=== PATIENT | female | born 1945 | race Caucasian/White ===

== ENCOUNTER 2017-05-01 13:39 | Emergency (ER) | payer MEDICARE, BC ==
[2017-05-01] MEDS: morphine 4 MG/ML VIAL IV (16:10)
[2017-05-01] MEDS: ONDANSETRON 4 MG INJ IV (16:10)
[2017-05-01 16:23] LABS: ADD MAN DIFF? NO
[2017-05-01 16:25] LABS: BASOPHIL # 0.1 10^3/ul (0.0-0.1); BASOPHILS % 1.1 % (0.0-2.0); EOSINOPHILS % 0.9 % (0.0-7.0); HEMATOCRIT 33.8 % (37.0-47.0); HEMOGLOBIN 11.3 g/dl (12.0-16.0); LYMPHOCYTES # 0.6 10^3/ul (0.8-2.9); MEAN CORPUSCULAR HGB CONC 33.4 g/dl (32.0-37.0); MEAN CORPUSCULAR VOLUME 89.7 fl (82.0-101.0); MONOCYTE # 0.6 10^3/ul (0.3-0.9); MONOCYTES % 12.2 % (0.0-11.0); NEUTROPHIL # 3.3 10^3/ul (1.6-7.5); NEUTROPHILS % 71.6 % (39.0-77.0); PLATELET COUNT 413 10^3/UL (140-415); RED BLOOD COUNT 3.77 10^6/ul (4.20-5.40); RED CELL DISTRIBUTION WIDTH 19.5 % (11.5-14.5)
[2017-05-01 16:25] LABS: WHITE BLOOD COUNT 4.6 10^3/ul (4.8-10.8)
[2017-05-01 16:45] LABS: INR 0.86; PARTIAL THROMBOPLASTIN TIME 27.7 Sec (25.0-35.0); PROTIME 11.8 Sec (11.9-14.9); PT RATIO 0.9
[2017-05-01 16:48] LABS: ALANINE AMINOTRANSFERASE 20 IU/L (13-69); ALBUMIN 4.6 g/dl (3.3-4.9); ALBUMIN/GLOBULIN RATIO 1.39; ALKALINE PHOSPHATASE 106 IU/L (42-121); ANION GAP 22 (8-16); ASPARTATE AMINO TRANSFERASE 22 IU/L (15-46); BILIRUBIN,INDIRECT 0.1 mg/dl (0-1.1); BILIRUBIN,TOTAL 0.1 mg/dl (0.2-1.3); BLOOD UREA NITROGEN 26 mg/dl (7-20); CALCIUM 9.2 mg/dl (8.4-10.2); CARBON DIOXIDE 31 mmol/L (21-31); CHLORIDE 94 mmol/L (97-110); CREATININE 5.08 mg/dl (0.44-1.00); GLUCOSE 119 mg/dl (70-220); LIPASE 44 U/L (23-300); SODIUM 142 mmol/L (135-144); TOTAL PROTEIN 7.9 g/dl (6.1-8.1)
[2017-05-01 16:59] LABS: TROPONIN-I 0.025 ng/ml (0.00-0.12)
[2017-05-01] MEDS: SOD CHLORIDE 0.9% 500 ML IV (19:45)
[2017-05-01] MEDS: FENTAnyl 50 MCG/ML VIAL IV (19:46)
[2017-05-01] MEDS: METOCLOPRAMIDE 10 MG INJ IV (19:46)
[2017-05-01] MEDS: DIPHENHYDRAMINE 50 MG INJ IV (19:46)
== END 2017-05-01 20:57 | disposition home or self-care (01) ==
LOC: FTE 13:39 → E/R 20:57
DX: N18.6 End stage renal disease (principal); K59.00 Constipation, unspecified; I12.0 Hypertensive chronic kidney disease with stage 5 chronic kidney disease or end stage renal disease; I50.9 Heart failure, unspecified; Z79.4 Long term (current) use of insulin; Z79.82 Long term (current) use of aspirin; Z99.2 Dependence on renal dialysis
CPT/HCPCS: 36415; 74176; 80053; 83690; 84484; 85025; 85610; 85730; 93005; 96374; 96375; 99285-25

== ENCOUNTER 2017-05-03 21:23 | Emergency (ER) | payer SELFPAY, BC, MEDICARE | END 2017-05-04 01:00 | disposition left against medical advice (07) | LOC: E/R 21:23 | DX: Z53.21 Procedure and treatment not carried out due to patient leaving prior to being seen by health care provider (principal) ==

== ENCOUNTER 2017-05-05 19:54 | Inpatient (IN) | payer MEDICARE, BC ==
[2017-05-05] MEDS: ONDANSETRON 4 MG INJ IV ×3 (20:18→22:33)
[2017-05-05 20:26] LABS: ADD MAN DIFF? NO
[2017-05-05] MEDS: ASPIRIN 81 MG TAB PO (20:28)
[2017-05-05 20:31] LABS: ABNORMAL IP MESSAGE 1; BASOPHILS % 0.8 % (0.0-2.0); EOSINOPHILS # 0.1 10^3/ul (0.0-0.5); EOSINOPHILS % 1.5 % (0.0-7.0); HEMATOCRIT 26.1 % (37.0-47.0); HEMOGLOBIN 8.9 g/dl (12.0-16.0); LYMPHOCYTES # 0.6 10^3/ul (0.8-2.9); LYMPHOCYTES % 14.1 % (15.0-51.0); MEAN CORPUSCULAR HGB CONC 34.1 g/dl (32.0-37.0); MEAN CORPUSCULAR VOLUME 90.9 fl (82.0-101.0); MEAN PLATELET VOLUME 9.2 fl (7.4-10.4); MONOCYTE # 0.4 10^3/ul (0.3-0.9); MONOCYTES % 9.5 % (0.0-11.0); NEUTROPHIL # 2.9 10^3/ul (1.6-7.5); NEUTROPHILS % 73.8 % (39.0-77.0); PLATELET COUNT 316 10^3/UL (140-415); RED BLOOD COUNT 2.87 10^6/ul (4.20-5.40); RED CELL DISTRIBUTION WIDTH 19.7 % (11.5-14.5)
[2017-05-05 20:31] LABS: WHITE BLOOD COUNT 3.9 10^3/ul (4.8-10.8)
[2017-05-05 20:33] LABS: POSITIVE DIFF @See below
[2017-05-05] MEDS: HYDROmorphONE 1 MG/ML SYG IV (20:43)
[2017-05-05 20:49] LABS: ALANINE AMINOTRANSFERASE 13 IU/L (13-69); ALBUMIN 4.8 g/dl (3.3-4.9); ALKALINE PHOSPHATASE 114 IU/L (42-121); ANION GAP 22 (8-16); ASPARTATE AMINO TRANSFERASE 49 IU/L (15-46); BILIRUBIN,INDIRECT 0.4 mg/dl (0-1.1); BILIRUBIN,TOTAL 0.4 mg/dl (0.2-1.3); BLOOD UREA NITROGEN 14 mg/dl (7-20); CALCIUM 8.2 mg/dl (8.4-10.2); CARBON DIOXIDE 24 mmol/L (21-31); CHLORIDE 93 mmol/L (97-110); CREATININE 3.31 mg/dl (0.44-1.00); GLUCOSE 100 mg/dl (70-220); SODIUM 135 mmol/L (135-144)
[2017-05-05 20:50] LABS: INR 0.85; PROTIME 11.7 Sec (11.9-14.9); PT RATIO 0.9
[2017-05-05 20:51] LABS: PARTIAL THROMBOPLASTIN TIME 40.2 Sec (25.0-35.0)
[2017-05-05 21:00] LABS: TROPONIN-I 0.024 ng/ml (0.00-0.12)
[2017-05-05 21:13] LABS: B-TYPE NATRIURETIC PEPTIDE 75700 PG/ML (0-125)
[2017-05-05] MEDS ORDERED: ACETAMINOPHEN 325 MG TAB PO ×2 (21:30→23:30)
[2017-05-05] MEDS ORDERED: ONDANSETRON 4 MG INJ IV (21:30)
[2017-05-05] MEDS ORDERED: NITROGLYCERIN (SL) 0.4 MG TAB SL (21:30)
[2017-05-05] MEDS: IPRATROPIUM (NEB) 0.5 MG/2.5 ML AMP NEB (21:43)
[2017-05-05] MEDS: ALBUTEROL 0.083% (NEB) 2.5 MG/3 ML AMP NEB (21:43)
[2017-05-05] MEDS ORDERED: GLUCOSE GEL 15 GRAM TUBE PO ×2 (23:30)
[2017-05-05] MEDS ORDERED: GLUCOSE GEL 15 GRAM TUBE BUCCAL (23:30)
[2017-05-05] MEDS ORDERED: BISACODYL (EC) 5 MG TAB PO (23:30)
[2017-05-05] MEDS: ONDANSETRON 4 MG TAB PO (23:30)
[2017-05-05] MEDS ORDERED: NACL 0.9% 3 ML SYG IV (23:30)
[2017-05-05] MEDS ORDERED: traMADol 50 MG TAB PO (23:30)
[2017-05-05] MEDS ORDERED: GLUCAGON 1 MG INJ IM (23:30)
[2017-05-05] MEDS ORDERED: DOCUSATE SODIUM 100 MG CAP PO (23:30)
[2017-05-05] MEDS ORDERED: DEXTROSE 50% 50 ML SYRINGE IV ×2 (23:30)
[2017-05-06 00:27] LABS: CREATINE KINASE 63 IU/L (23-200)
[2017-05-06] MEDS: CLONIDINE 0.1 MG/24 HR PATCH TRANSDERM (00:40)
[2017-05-06 00:41] LABS: CK INDEX 1.6; CK-MB 0.99 ng/ml (0.0-2.4); TROPONIN-I 0.025 ng/ml (0.00-0.12)
[2017-05-06] MEDS: morphine 4 MG/ML VIAL IV (01:32)
[2017-05-06] MEDS: ONDANSETRON 4 MG INJ IV ×3 (01:33→13:58)
[2017-05-06] MEDS: ACCU-CHEK XX (02:32)
[2017-05-06] MEDS: hydrALAzine 20 MG INJ IV ×2 (04:05→23:46)
[2017-05-06 05:05] LABS: CK INDEX 1.3; CK-MB 0.87 ng/ml (0.0-2.4); CREATINE KINASE 66 IU/L (23-200)
[2017-05-06] MEDS: PANTOPRAZOLE 40 MG INJ IV (05:57)
[2017-05-06] MEDS: ONDANSETRON 4 MG TAB PO ×4 (06:23→23:40)
[2017-05-06 06:48] LABS: CREATINE KINASE 58 IU/L (23-200)
[2017-05-06 07:01] LABS: CK INDEX 1.4; CK-MB 0.82 ng/ml (0.0-2.4); TROPONIN-I 0.031 ng/ml (0.00-0.12)
[2017-05-06] MEDS: INSULIN ASPART [NOVOLOG] 3 ML PEN SC ×4 (07:57→21:00)
[2017-05-06] MEDS: SEVELAMER CARBONATE 0.8 GM PKT PO ×3 (08:51→18:47)
[2017-05-06] MEDS: AMLODIPINE 10 MG TAB PO (08:51)
[2017-05-06] MEDS: POLYETHYLENE GLYCOL 17 GM PACKET PO (08:51)
[2017-05-06] MEDS: MULTIVIT/CA CARB/B CMPLX/FA TAB PO (08:52)
[2017-05-06] MEDS ORDERED: HARD FAT/PHENYLEPHRINE SUPP PR (09:00)
[2017-05-06] MEDS: ASPIRIN 81 MG TAB PO (09:05)
[2017-05-06] MEDS: HEPARIN 5,000 UNIT/0.5 ML VIAL SC ×2 (09:07→21:25)
[2017-05-06 09:38] LABS: CK-MB 0.95 ng/ml (0.0-2.4); TROPONIN-I 0.034 ng/ml (0.00-0.12)
[2017-05-06 09:41] LABS: CK INDEX 1.6; CREATINE KINASE 60 IU/L (23-200)
[2017-05-06] MEDS: LORAZEPAM 2 MG INJ IV (15:36)
[2017-05-06] MEDS: METOCLOPRAMIDE 10 MG INJ IV (15:36)
[2017-05-07] MEDS: ACCU-CHEK XX (01:52)
[2017-05-07] MEDS: ONDANSETRON 4 MG TAB PO ×3 (05:14→17:30)
[2017-05-07] MEDS: PANTOPRAZOLE 40 MG INJ IV (05:15)
[2017-05-07] MEDS: SEVELAMER CARBONATE 0.8 GM PKT PO ×3 (07:55→17:55)
[2017-05-07] MEDS: INSULIN ASPART [NOVOLOG] 3 ML PEN SC ×4 (07:55→21:00)
[2017-05-07 08:05] LABS: ADD MAN DIFF? NO; BASOPHIL # 0.1 10^3/ul (0.0-0.1); EOSINOPHILS # 0.2 10^3/ul (0.0-0.5); EOSINOPHILS % 2.9 % (0.0-7.0); HEMATOCRIT 29.2 % (37.0-47.0); HEMOGLOBIN 9.6 g/dl (12.0-16.0); LYMPHOCYTES # 0.7 10^3/ul (0.8-2.9); LYMPHOCYTES % 12.8 % (15.0-51.0); MEAN CORPUSCULAR HEMOGLOBIN 30.4 pg (29.0-33.0); MEAN CORPUSCULAR HGB CONC 32.9 g/dl (32.0-37.0); MEAN CORPUSCULAR VOLUME 92.4 fl (82.0-101.0); MEAN PLATELET VOLUME 9.6 fl (7.4-10.4); MONOCYTE # 0.7 10^3/ul (0.3-0.9); MONOCYTES % 13.6 % (0.0-11.0); NEUTROPHIL # 3.6 10^3/ul (1.6-7.5); NEUTROPHILS % 69.3 % (39.0-77.0); PLATELET COUNT 347 10^3/UL (140-415); RED BLOOD COUNT 3.16 10^6/ul (4.20-5.40); RED CELL DISTRIBUTION WIDTH 20.3 % (11.5-14.5)
[2017-05-07 08:05] LABS: WHITE BLOOD COUNT 5.2 10^3/ul (4.8-10.8)
[2017-05-07 08:25] LABS: ALANINE AMINOTRANSFERASE 22 IU/L (13-69); ALBUMIN 3.9 g/dl (3.3-4.9); ALKALINE PHOSPHATASE 71 IU/L (42-121); ANION GAP 21 (8-16); ASPARTATE AMINO TRANSFERASE 28 IU/L (15-46); BLOOD UREA NITROGEN 32 mg/dl (7-20); CALCIUM 7.6 mg/dl (8.4-10.2); CARBON DIOXIDE 28 mmol/L (21-31); CHLORIDE 93 mmol/L (97-110); CREATININE 7.31 mg/dl (0.44-1.00); GLUCOSE 121 mg/dl (70-220); POTASSIUM 4.1 mmol/L (3.5-5.1); SODIUM 138 mmol/L (135-144); TOTAL PROTEIN 6.5 g/dl (6.1-8.1)
[2017-05-07] MEDS: MULTIVIT/CA CARB/B CMPLX/FA TAB PO (09:14)
[2017-05-07] MEDS: POLYETHYLENE GLYCOL 17 GM PACKET PO (09:14)
[2017-05-07] MEDS: ASPIRIN 81 MG TAB PO (09:14)
[2017-05-07] MEDS: AMLODIPINE 10 MG TAB PO (09:15)
[2017-05-07] MEDS: HEPARIN 5,000 UNIT/0.5 ML VIAL SC ×2 (09:23→21:58)
[2017-05-07] MEDS: REGADENOSON 0.4 MG/5 ML SYG (12:15)
[2017-05-07] MEDS: ONDANSETRON 4 MG INJ IV ×2 (13:04→16:51)
[2017-05-07] MEDS: hydrALAzine 20 MG INJ IV (17:03)
[2017-05-07 18:37] LABS: LIPASE 55 U/L (23-300)
[2017-05-07 18:37] LABS: AMYLASE 68 U/L (11-123)
[2017-05-07] MEDS: METOCLOPRAMIDE 5 MG TAB PO (19:49)
[2017-05-08] MEDS: ONDANSETRON 4 MG TAB PO ×4 (00:20→18:09)
[2017-05-08] MEDS: hydrALAzine 20 MG INJ IV ×2 (00:24→07:45)
[2017-05-08] MEDS: METOCLOPRAMIDE 10 MG INJ IV ×2 (00:24→09:12)
[2017-05-08] MEDS: ACCU-CHEK XX (01:37)
[2017-05-08] MEDS: METOCLOPRAMIDE 5 MG TAB PO ×4 (05:22→18:08)
[2017-05-08] MEDS: PANTOPRAZOLE 40 MG INJ IV (05:45)
[2017-05-08] MEDS ORDERED: PANTOPRAZOLE 40 MG INJ IV (06:00)
[2017-05-08] MEDS: INSULIN ASPART [NOVOLOG] 3 ML PEN SC ×4 (07:55→22:14)
[2017-05-08] MEDS: SEVELAMER CARBONATE 0.8 GM PKT PO ×3 (07:55→18:09)
[2017-05-08] MEDS: MULTIVIT/CA CARB/B CMPLX/FA TAB PO (09:00)
[2017-05-08] MEDS: ASPIRIN 81 MG TAB PO (09:00)
[2017-05-08] MEDS: POLYETHYLENE GLYCOL 17 GM PACKET PO (09:00)
[2017-05-08] MEDS: ISOSORBIDE MONONITRATE(SR)30 MG TAB PO (09:01)
[2017-05-08] MEDS: AMLODIPINE 10 MG TAB PO (09:02)
[2017-05-08] MEDS: HEPARIN 5,000 UNIT/0.5 ML VIAL SC ×2 (09:06→22:12)
[2017-05-08] MEDS: BISACODYL 10 MG SUPP PR (12:18)
[2017-05-08] MEDS: morphine 2 MG INJ IV (12:40)
[2017-05-08] MEDS: CLONIDINE 0.2 MG/24 HR PATCH TRANSDERM (16:30)
[2017-05-08] MEDS: LUBIPROSTONE 24 MCG CAP PO (22:01)
[2017-05-08] MEDS: LACTULOSE 30ML CUP PO (22:01)
[2017-05-09] MEDS: METOCLOPRAMIDE 5 MG TAB PO ×3 (00:06→12:02)
[2017-05-09] MEDS: ONDANSETRON 4 MG TAB PO ×3 (00:06→12:02)
[2017-05-09] MEDS: hydrALAzine 20 MG INJ IV (00:09)
[2017-05-09] MEDS: morphine 2 MG INJ IV (00:17)
[2017-05-09] MEDS: ACCU-CHEK XX (02:00)
[2017-05-09] MEDS: METOCLOPRAMIDE 10 MG INJ IV (02:40)
[2017-05-09] MEDS: PANTOPRAZOLE 40 MG INJ IV (05:56)
[2017-05-09] MEDS: SEVELAMER CARBONATE 0.8 GM PKT PO ×2 (07:41→12:02)
[2017-05-09] MEDS: INSULIN ASPART [NOVOLOG] 3 ML PEN SC ×2 (07:42→11:50)
[2017-05-09] MEDS: LUBIPROSTONE 24 MCG CAP PO (07:58)
[2017-05-09] MEDS: ISOSORBIDE MONONITRATE(SR)30 MG TAB PO (07:58)
[2017-05-09] MEDS: ASPIRIN 81 MG TAB PO (07:58)
[2017-05-09] MEDS: POLYETHYLENE GLYCOL 17 GM PACKET PO (07:59)
[2017-05-09] MEDS: MULTIVIT/CA CARB/B CMPLX/FA TAB PO (07:59)
[2017-05-09] MEDS: LACTULOSE 30ML CUP PO (07:59)
[2017-05-09] MEDS: AMLODIPINE 10 MG TAB PO (08:00)
[2017-05-09] MEDS: HEPARIN 5,000 UNIT/0.5 ML VIAL SC (08:05)
[2017-05-09 08:32] LABS: ANION GAP 18 (8-16); BLOOD UREA NITROGEN 28 mg/dl (7-20); CARBON DIOXIDE 27 mmol/L (21-31); CHLORIDE 96 mmol/L (97-110); CREATININE 6.95 mg/dl (0.44-1.00); GLUCOSE 84 mg/dl (70-220); POTASSIUM 4.2 mmol/L (3.5-5.1); SODIUM 137 mmol/L (135-144)
[2017-05-09] MEDS: CLONIDINE 0.3 MG/24 HR PATCH TRANSDERM (16:00)
== END 2017-05-09 17:22 | disposition home or self-care (01) | DRG 291 ==
LOC: E/R 19:54 → TEL 21:27
DX: I13.2 Hypertensive heart and chronic kidney disease with heart failure and with stage 5 chronic kidney disease, or end stage renal disease (principal); N18.6 End stage renal disease; E11.22 Type 2 diabetes mellitus with diabetic chronic kidney disease; R07.9 Chest pain, unspecified; I25.10 Atherosclerotic heart disease of native coronary artery without angina pectoris; K31.84 Gastroparesis; I50.9 Heart failure, unspecified; K21.9 Gastro-esophageal reflux disease without esophagitis; I25.9 Chronic ischemic heart disease, unspecified; E11.43 Type 2 diabetes mellitus with diabetic autonomic (poly)neuropathy; D64.9 Anemia, unspecified; E78.5 Hyperlipidemia, unspecified; K59.00 Constipation, unspecified; Z99.2 Dependence on renal dialysis; Z79.4 Long term (current) use of insulin
CPT/HCPCS: 36415; 71045; 74018; 76700; 78452; 80048; 80053; 82150; 82550; 82553; 82962; 83690; 83880; 84484; 85025; 85610; 85730; 90935; 93005; 93017; 94664; 96372; 96374; 96375; 96376; 99217; 99285-25; G0378

== ENCOUNTER 2017-05-30 15:39 | Inpatient (IN) | payer MEDICARE, BC ==
[2017-05-30] MEDS: SOD CHLORIDE 0.9% 1,000 ML IV (17:15)
[2017-05-30] MEDS: ONDANSETRON 4 MG INJ IV ×2 (17:15→20:05)
[2017-05-30 17:19] LABS: ADD MAN DIFF? NO
[2017-05-30 17:20] LABS: BASOPHIL # 0.1 10^3/ul (0.0-0.1); BASOPHILS % 1.4 % (0.0-2.0); EOSINOPHILS % 0.9 % (0.0-7.0); HEMATOCRIT 41.1 % (37.0-47.0); HEMOGLOBIN 13.5 g/dl (12.0-16.0); LYMPHOCYTES # 0.8 10^3/ul (0.8-2.9); LYMPHOCYTES % 17.8 % (15.0-51.0); MEAN CORPUSCULAR HGB CONC 32.8 g/dl (32.0-37.0); MEAN CORPUSCULAR VOLUME 94.5 fl (82.0-101.0); MEAN PLATELET VOLUME 9.1 fl (7.4-10.4); MONOCYTE # 0.5 10^3/ul (0.3-0.9); MONOCYTES % 10.8 % (0.0-11.0); NEUTROPHILS % 68.9 % (39.0-77.0); PLATELET COUNT 370 10^3/UL (140-415); RED BLOOD COUNT 4.35 10^6/ul (4.20-5.40); RED CELL DISTRIBUTION WIDTH 18.4 % (11.5-14.5)
[2017-05-30 17:20] LABS: WHITE BLOOD COUNT 4.4 10^3/ul (4.8-10.8)
[2017-05-30 17:51] LABS: ALANINE AMINOTRANSFERASE 21 IU/L (13-69); ALBUMIN 5.1 g/dl (3.3-4.9); ALBUMIN/GLOBULIN RATIO 1.64; ALKALINE PHOSPHATASE 112 IU/L (42-121); ANION GAP 23 (8-16); ASPARTATE AMINO TRANSFERASE 30 IU/L (15-46); BILIRUBIN,INDIRECT 0.1 mg/dl (0-1.1); BILIRUBIN,TOTAL 0.1 mg/dl (0.2-1.3); BLOOD UREA NITROGEN 23 mg/dl (7-20); CALCIUM 9.7 mg/dl (8.4-10.2); CARBON DIOXIDE 30 mmol/L (21-31); CHLORIDE 91 mmol/L (97-110); CREATININE 5.79 mg/dl (0.44-1.00); GLUCOSE 152 mg/dl (70-220); LIPASE 44 U/L (23-300); POTASSIUM 4.5 mmol/L (3.5-5.1); SODIUM 139 mmol/L (135-144); TOTAL PROTEIN 8.2 g/dl (6.1-8.1)
[2017-05-30 18:02] LABS: TROPONIN-I 0.016 ng/ml (0.00-0.12)
[2017-05-30] MEDS: MAGNESIUM CITRATE 300 ML BTL PO (18:27)
[2017-05-30] MEDS: ACETAMINOPHEN 325 MG TAB PO (20:04)
[2017-05-30] MEDS: hydrALAzine 20 MG INJ IV ×3 (20:49→23:31)
[2017-05-30] MEDS ORDERED: ACETAMINOPHEN 325 MG TAB PO ×2 (21:00→23:30)
[2017-05-30] MEDS ORDERED: ONDANSETRON 4 MG INJ IV (21:00)
[2017-05-30] MEDS ORDERED: MAGNESIUM CITRATE 300 ML BTL PO (23:30)
[2017-05-30] MEDS ORDERED: NACL 0.9% 3 ML SYG IV (23:30)
[2017-05-31] MEDS: traMADol 50 MG TAB PO ×3 (01:29→19:55)
[2017-05-31] MEDS: CLONIDINE 0.2 MG/24 HR PATCH TRANSDERM (02:51)
[2017-05-31] MEDS ORDERED: HEPARIN 1000 UNITS/ML 10 ML INJ (03:58)
[2017-05-31] MEDS: HEPARIN 1000 UNITS/ML 10 ML INJ HE ×2 (05:02→05:03)
[2017-05-31] MEDS: LOSARTAN 50 MG TAB PO (08:43)
[2017-05-31] MEDS: MULTIVIT/CA CARB/B CMPLX/FA TAB PO (08:44)
[2017-05-31] MEDS: AMLODIPINE 10 MG TAB PO (08:44)
[2017-05-31] MEDS: LUBIPROSTONE 24 MCG CAP PO ×4 (08:44→21:09)
[2017-05-31] MEDS: SEVELAMER 800 MG TAB PO ×3 (08:44→17:02)
[2017-05-31] MEDS: PANTOPRAZOLE 40 MG INJ IV (08:44)
[2017-05-31] MEDS: FLUOXETINE 20 MG CAP PO (08:44)
[2017-05-31 15:50] LABS: HEPATITIS B SURFACE ANTIGEN NEGATIVE (NEGATIVE)
[2017-05-31] MEDS: ONDANSETRON 4 MG INJ IV (19:55)
[2017-06-01] MEDS: hydrALAzine 20 MG INJ IV ×2 (05:04→12:08)
[2017-06-01] MEDS: PANTOPRAZOLE 40 MG INJ IV (05:49)
[2017-06-01] MEDS: ONDANSETRON 4 MG INJ IV ×3 (05:49→20:46)
[2017-06-01 07:01] LABS: ADD MAN DIFF? NO
[2017-06-01 07:04] LABS: WHITE BLOOD COUNT 4.9 10^3/ul (4.8-10.8)
[2017-06-01 07:04] LABS: BASOPHIL # 0.1 10^3/ul (0.0-0.1); EOSINOPHILS # 0.1 10^3/ul (0.0-0.5); EOSINOPHILS % 2.6 % (0.0-7.0); HEMATOCRIT 37.9 % (37.0-47.0); HEMOGLOBIN 12.1 g/dl (12.0-16.0); LYMPHOCYTES # 0.8 10^3/ul (0.8-2.9); LYMPHOCYTES % 16.9 % (15.0-51.0); MEAN CORPUSCULAR HEMOGLOBIN 31.2 pg (29.0-33.0); MEAN CORPUSCULAR HGB CONC 31.9 g/dl (32.0-37.0); MEAN CORPUSCULAR VOLUME 97.7 fl (82.0-101.0); MEAN PLATELET VOLUME 9.3 fl (7.4-10.4); MONOCYTE # 0.6 10^3/ul (0.3-0.9); MONOCYTES % 12.4 % (0.0-11.0); NEUTROPHIL # 3.3 10^3/ul (1.6-7.5); NEUTROPHILS % 66.9 % (39.0-77.0); PLATELET COUNT 318 10^3/UL (140-415); RED BLOOD COUNT 3.88 10^6/ul (4.20-5.40); RED CELL DISTRIBUTION WIDTH 17.8 % (11.5-14.5)
[2017-06-01 07:39] LABS: ALANINE AMINOTRANSFERASE 18 IU/L (13-69); ALBUMIN 4.2 g/dl (3.3-4.9); ALBUMIN/GLOBULIN RATIO 1.68; ALKALINE PHOSPHATASE 89 IU/L (42-121); ANION GAP 19 (8-16); ASPARTATE AMINO TRANSFERASE 23 IU/L (15-46); BILIRUBIN,INDIRECT 0.2 mg/dl (0-1.1); BILIRUBIN,TOTAL 0.2 mg/dl (0.2-1.3); BLOOD UREA NITROGEN 20 mg/dl (7-20); CALCIUM 8.6 mg/dl (8.4-10.2); CARBON DIOXIDE 27 mmol/L (21-31); CHLORIDE 95 mmol/L (97-110); GLUCOSE 103 mg/dl (70-220); POTASSIUM 4.5 mmol/L (3.5-5.1); SODIUM 136 mmol/L (135-144); TOTAL PROTEIN 6.7 g/dl (6.1-8.1)
[2017-06-01] MEDS: LOSARTAN 50 MG TAB PO (08:15)
[2017-06-01] MEDS: SEVELAMER 800 MG TAB PO ×3 (08:15→17:04)
[2017-06-01] MEDS: FLUOXETINE 20 MG CAP PO (08:15)
[2017-06-01] MEDS: LUBIPROSTONE 24 MCG CAP PO ×2 (08:16→20:46)
[2017-06-01] MEDS: AMLODIPINE 10 MG TAB PO (08:16)
[2017-06-01] MEDS: MULTIVIT/CA CARB/B CMPLX/FA TAB PO (08:16)
[2017-06-01] MEDS: traMADol 50 MG TAB PO ×2 (12:16→20:46)
[2017-06-01] MEDS: ISOSORBIDE DINITRATE 10 MG TAB PO ×2 (14:40→20:48)
[2017-06-01] MEDS ORDERED: GLUCAGON 1 MG INJ IM (15:00)
[2017-06-01] MEDS ORDERED: GLUCOSE GEL 15 GRAM TUBE PO (15:00)
[2017-06-01] MEDS ORDERED: DEXTROSE 50% 50 ML SYRINGE IV (15:00)
[2017-06-01] MEDS ORDERED: GLUCOSE GEL 15 GRAM TUBE BUCCAL (15:00)
[2017-06-01] MEDS: Discontinue current oral sulfonylureas (glyburide, glipizide, and/or glimepiride) prior to XX (15:00)
[2017-06-01] MEDS: HYPOGLYCEMIA PROTOCOL when Glucose is <70 mg/dL or symptomatic <90 mg/dL. XX (15:00)
[2017-06-01] MEDS: INSULIN ASPART [NOVOLOG] 3 ML PEN SC ×3 (17:00→20:56)
[2017-06-01] MEDS: ONDANSETRON (ODT) 4 MG TAB ODT (17:03)
[2017-06-01] MEDS: HYDROmorphONE 0.5 MG/0.5 ML SYG IV (17:04)
[2017-06-01] MEDS: CLONIDINE 0.3 MG/24 HR PATCH TRANSDERM (18:33)
[2017-06-01] MEDS: DOCUSATE SODIUM 100 MG CAP PO (20:48)
[2017-06-01] MEDS: GLUCOSE GEL 15 GRAM TUBE PO ×2 (21:01→21:18)
[2017-06-01] MEDS: DEXTROSE 50% 50 ML SYRINGE IV (21:29)
[2017-06-01] MEDS: ACCU-CHEK XX (23:54)
[2017-06-02] MEDS: PANTOPRAZOLE 40 MG INJ IV (06:12)
[2017-06-02] MEDS: SEVELAMER 800 MG TAB PO ×3 (08:14→18:27)
[2017-06-02] MEDS: LUBIPROSTONE 24 MCG CAP PO ×2 (08:15→22:05)
[2017-06-02] MEDS: FLUOXETINE 20 MG CAP PO (08:15)
[2017-06-02] MEDS: MULTIVIT/CA CARB/B CMPLX/FA TAB PO (08:15)
[2017-06-02] MEDS: INSULIN ASPART [NOVOLOG] 3 ML PEN SC ×4 (08:15→22:09)
[2017-06-02] MEDS: ISOSORBIDE DINITRATE 10 MG TAB PO ×2 (08:15→22:07)
[2017-06-02] MEDS: LOSARTAN 50 MG TAB PO (09:00)
[2017-06-02] MEDS: AMLODIPINE 10 MG TAB PO (09:00)
[2017-06-02] MEDS ORDERED: NIFEdipine (XL) 30 MG TAB PO (09:00)
[2017-06-02] MEDS: LACTULOSE 30ML CUP PO ×2 (16:00→22:00)
[2017-06-02] MEDS: BISACODYL (EC) 5 MG TAB PO (16:19)
[2017-06-02] MEDS: traMADol 50 MG TAB PO (16:19)
[2017-06-02] MEDS: DOCUSATE SODIUM 100 MG CAP PO (22:05)
[2017-06-02] MEDS: ACCU-CHEK XX (23:49)
[2017-06-03] MEDS: PANTOPRAZOLE 40 MG INJ IV (06:39)
[2017-06-03] MEDS: LACTULOSE 30ML CUP PO ×2 (06:41→14:00)
[2017-06-03] MEDS: INSULIN ASPART [NOVOLOG] 3 ML PEN SC ×3 (08:11→17:58)
[2017-06-03] MEDS: SEVELAMER 800 MG TAB PO ×3 (09:19→17:58)
[2017-06-03] MEDS: LUBIPROSTONE 24 MCG CAP PO (09:19)
[2017-06-03] MEDS: MULTIVIT/CA CARB/B CMPLX/FA TAB PO (09:19)
[2017-06-03] MEDS: LOSARTAN 50 MG TAB PO (09:19)
[2017-06-03] MEDS: FLUOXETINE 20 MG CAP PO (09:20)
[2017-06-03] MEDS: ISOSORBIDE DINITRATE 10 MG TAB PO (09:20)
[2017-06-03] MEDS: AMLODIPINE 10 MG TAB PO (09:20)
[2017-06-03] MEDS: traMADol 50 MG TAB PO (16:48)
== END 2017-06-03 18:30 | disposition home or self-care (01) | DRG 391 ==
LOC: MS2 06-01 11:33 → E/R 15:39 → TEL 20:52
DX: K59.00 Constipation, unspecified (principal); N18.6 End stage renal disease; I12.0 Hypertensive chronic kidney disease with stage 5 chronic kidney disease or end stage renal disease; E11.9 Type 2 diabetes mellitus without complications; Z99.2 Dependence on renal dialysis; I16.0 Hypertensive urgency; F32.9 Major depressive disorder, single episode, unspecified; R10.13 Epigastric pain; R11.2 Nausea with vomiting, unspecified; B34.9 Viral infection, unspecified
CPT/HCPCS: 36415; 71045; 74018; 74176; 80053; 82962; 83036; 83690; 84484; 85025; 87340; 90935; 93005; 96374; 96375; 96376; 99285-25

== ENCOUNTER 2017-06-14 04:21 | Inpatient (IN) | payer MEDICARE, BC ==
[2017-06-14] MEDS: IOHEXOL 14.3 MG(I)/ML (ADULT) BTL PO (03:30)
[2017-06-14] MEDS: ASPIRIN 325 MG TAB PO (06:27)
[2017-06-14] MEDS: LABETALOL HCL 20MG INJ IV (07:35)
[2017-06-14] MEDS: ONDANSETRON 4 MG INJ IV ×3 (07:35→19:46)
[2017-06-14] MEDS: FAMOTIDINE 20 MG INJ IV (07:35)
[2017-06-14 08:00] LABS: ADD MAN DIFF? NO
[2017-06-14 08:06] LABS: ABNORMAL IP MESSAGE 1; BASOPHILS % 0.7 % (0.0-2.0); EOSINOPHILS % 0.3 % (0.0-7.0); HEMATOCRIT 39.2 % (37.0-47.0); HEMOGLOBIN 12.9 g/dl (12.0-16.0); LYMPHOCYTES # 0.5 10^3/ul (0.8-2.9); LYMPHOCYTES % 8.3 % (15.0-51.0); MEAN CORPUSCULAR HEMOGLOBIN 31.9 pg (29.0-33.0); MEAN CORPUSCULAR HGB CONC 32.9 g/dl (32.0-37.0); MEAN CORPUSCULAR VOLUME 96.8 fl (82.0-101.0); MEAN PLATELET VOLUME 9.3 fl (7.4-10.4); MONOCYTE # 0.5 10^3/ul (0.3-0.9); MONOCYTES % 8.3 % (0.0-11.0); NEUTROPHIL # 4.8 10^3/ul (1.6-7.5); NEUTROPHILS % 82.1 % (39.0-77.0); PLATELET COUNT 400 10^3/UL (140-415); RED BLOOD COUNT 4.05 10^6/ul (4.20-5.40); RED CELL DISTRIBUTION WIDTH 15.5 % (11.5-14.5)
[2017-06-14 08:06] LABS: WHITE BLOOD COUNT 5.8 10^3/ul (4.8-10.8)
[2017-06-14 08:07] LABS: POSITIVE DIFF @See below
[2017-06-14 08:28] LABS: ALANINE AMINOTRANSFERASE 24 IU/L (13-69); ALBUMIN 4.8 g/dl (3.3-4.9); ALBUMIN/GLOBULIN RATIO 1.54; ALKALINE PHOSPHATASE 90 IU/L (42-121); ANION GAP 19 (8-16); ASPARTATE AMINO TRANSFERASE 25 IU/L (15-46); BLOOD UREA NITROGEN 11 mg/dl (7-20); CALCIUM 9.5 mg/dl (8.4-10.2); CARBON DIOXIDE 34 mmol/L (21-31); CHLORIDE 93 mmol/L (97-110); CREATINE KINASE 62 IU/L (23-200); CREATININE 3.25 mg/dl (0.44-1.00); GLUCOSE 162 mg/dl (70-220); POTASSIUM 3.2 mmol/L (3.5-5.1); SODIUM 143 mmol/L (135-144); TOTAL PROTEIN 7.9 g/dl (6.1-8.1)
[2017-06-14 08:31] LABS: INR 0.83; PROTIME 11.5 Sec (11.9-14.9); PT RATIO 0.9
[2017-06-14 08:32] LABS: PARTIAL THROMBOPLASTIN TIME 26.4 Sec (25.0-35.0)
[2017-06-14 08:37] LABS: CK INDEX 1.9; CK-MB 1.17 ng/ml (0.0-2.4); TROPONIN-I 0.028 ng/ml (0.00-0.12)
[2017-06-14 08:52] LABS: B-TYPE NATRIURETIC PEPTIDE 73900 PG/ML (0-125)
[2017-06-14] MEDS: METOCLOPRAMIDE 10 MG INJ IV ×2 (08:58→17:25)
[2017-06-14] MEDS: hydrALAzine 20 MG INJ IV ×3 (08:59→16:38)
[2017-06-14] MEDS: LORAZEPAM 2 MG INJ IV (09:26)
[2017-06-14] MEDS ORDERED: METOPROLOL 5 MG INJ IV (14:00)
[2017-06-14] MEDS: morphine 2 MG INJ IV (14:16)
[2017-06-14] MEDS: METOPROLOL 5 MG INJ IV ×2 (14:18→14:24)
[2017-06-14] MEDS ORDERED: DEXTROSE 50% 50 ML SYRINGE IV ×2 (14:30)
[2017-06-14] MEDS ORDERED: GLUCOSE GEL 15 GRAM TUBE BUCCAL (14:30)
[2017-06-14] MEDS ORDERED: MAGNESIUM CITRATE 300 ML BTL PO (14:30)
[2017-06-14] MEDS ORDERED: GLYCERIN (ADULT) SUPP PR (14:30)
[2017-06-14] MEDS ORDERED: NACL 0.9% 3 ML SYG IV (14:30)
[2017-06-14] MEDS ORDERED: GLUCOSE GEL 15 GRAM TUBE PO ×2 (14:30)
[2017-06-14] MEDS ORDERED: GLUCAGON 1 MG INJ IM (14:30)
[2017-06-14] MEDS: CLONIDINE 0.2 MG/24 HR PATCH TRANSDERM (14:54)
[2017-06-14] MEDS: DEXTROSE 5%-0.45% NACL 1,000 ML IV (15:09)
[2017-06-14 15:42] LABS: PLATELET COUNT 373 10^3/UL (140-415)
[2017-06-14] MEDS: POTASSIUM CHLORIDE 100 ML IVPB (16:49)
[2017-06-14] MEDS: ENALAPRILAT 1.25 MG INJ IV (17:14)
[2017-06-14] MEDS: NITROGLYCERIN 0.2 MG/HR PATCH TRANSDERM (17:15)
[2017-06-14] MEDS: PANTOPRAZOLE 40 MG INJ IV (17:53)
[2017-06-14] MEDS: NITROGLYCERIN 50 MG/D5W (PMX) 250 ML IV (18:49)
[2017-06-14] MEDS: HEPARIN 5,000 UNIT/0.5 ML VIAL SC (21:31)
[2017-06-14] MEDS ORDERED: SOD CHLORIDE 0.9% 1,000 ML IV (21:34)
[2017-06-14] MEDS ORDERED: SODIUM CHLORIDE 0.9% 1L BAG IV (22:00)
[2017-06-14] MEDS: INSULIN GLARGINE [LANtus] 3 ML PEN SC (22:58)
[2017-06-14 23:26] LABS: TROPONIN-I 0.037 ng/ml (0.00-0.12)
[2017-06-15] MEDS: NITROGLYCERIN 50 MG/D5W (PMX) 250 ML IV ×3 (00:56→12:20)
[2017-06-15] MEDS: PANTOPRAZOLE 40 MG INJ IV ×2 (05:35→17:36)
[2017-06-15 05:38] LABS: ABNORMAL IP MESSAGE 1; HEMATOCRIT 35.7 % (37.0-47.0); HEMOGLOBIN 11.8 g/dl (12.0-16.0); MEAN CORPUSCULAR HEMOGLOBIN 32.1 pg (29.0-33.0); MEAN CORPUSCULAR HGB CONC 33.1 g/dl (32.0-37.0); PLATELET COUNT 358 10^3/UL (140-415); RED BLOOD COUNT 3.68 10^6/ul (4.20-5.40); RED CELL DISTRIBUTION WIDTH 15.4 % (11.5-14.5)
[2017-06-15 05:38] LABS: WHITE BLOOD COUNT 13.4 10^3/ul (4.8-10.8)
[2017-06-15] MEDS: METOCLOPRAMIDE 10 MG INJ IV ×3 (05:38→22:07)
[2017-06-15 05:53] LABS: INR 0.89; PROTIME 12.1 Sec (11.9-14.9); PT RATIO 0.9
[2017-06-15 05:54] LABS: PARTIAL THROMBOPLASTIN TIME 28.2 Sec (25.0-35.0)
[2017-06-15 06:10] LABS: PHOSPHORUS 3.9 mg/dl (2.5-4.9)
[2017-06-15 06:10] LABS: ALANINE AMINOTRANSFERASE 19 IU/L (13-69); ALBUMIN 4.2 g/dl (3.3-4.9); ALBUMIN/GLOBULIN RATIO 1.68; ALKALINE PHOSPHATASE 71 IU/L (42-121); ANION GAP 15 (8-16); ASPARTATE AMINO TRANSFERASE 22 IU/L (15-46); BLOOD UREA NITROGEN 20 mg/dl (7-20); CALCIUM 8.7 mg/dl (8.4-10.2); CARBON DIOXIDE 33 mmol/L (21-31); CHLORIDE 96 mmol/L (97-110); CREATININE 4.51 mg/dl (0.44-1.00); GLUCOSE 215 mg/dl (70-220); MAGNESIUM 2.6 mg/dl (1.7-2.5); POTASSIUM 3.3 mmol/L (3.5-5.1); SODIUM 141 mmol/L (135-144); TOTAL PROTEIN 6.7 g/dl (6.1-8.1)
[2017-06-15 06:21] LABS: LIPASE 61 U/L (23-300)
[2017-06-15 06:22] LABS: POSITIVE DIFF @See below
[2017-06-15 06:23] LABS: ADD MAN DIFF? YES
[2017-06-15] MEDS: hydrALAzine 20 MG INJ IV ×2 (07:36→11:41)
[2017-06-15] MEDS: ACETAMINOPHEN 325 MG TAB PO (08:25)
[2017-06-15] MEDS: HEPARIN 5,000 UNIT/0.5 ML VIAL SC ×2 (08:33→21:05)
[2017-06-15] MEDS: POTASSIUM CHLORIDE 100 ML IVPB (08:38)
[2017-06-15 09:02] LABS: ANISOCYTOSIS 1+ (0-0); BAND NEUTROPHILS #M 0.1 10^3/ul (0.0-0.6); BAND NEUTROPHILS % (M) 1 % (0-4); EOSINOPHILS % (M) 1 % (0-7); GIANT THROMBO% (M) 1 % (0-0); LYMPHOCYTES #M 0.4 10^3/ul (0.8-2.9); LYMPHOCYTES % (M) 3 % (15-51); MICROCYTOSIS 1+ (0-0); MONOCYTE #M 0.8 10^3/ul (0.3-0.9); MONOCYTES % (M) 6 % (0-11); PLATELET ESTIMATE NORMAL; POIKILOCYTOSIS 1+ (0-0); POLYCHROMASIA 2+ (0-0); SEG NEUT #M 11.9 10^3/ul (1.6-7.5); SEGMENTED NEUTROPHILS (M) % 89 % (39-77); SMUDGE%M 2 % (0-0)
[2017-06-15] MEDS: ONDANSETRON 4 MG INJ IV (10:10)
[2017-06-15] MEDS: DEXTROSE 5%-0.45% NACL 1,000 ML IV ×2 (14:15→21:40)
[2017-06-15 15:22] LABS: HEPATITIS B SURFACE ANTIGEN NEGATIVE (NEGATIVE)
[2017-06-15] MEDS: INSULIN GLARGINE [LANtus] 3 ML PEN SC (21:04)
[2017-06-16] MEDS: hydrALAzine 20 MG INJ IV ×3 (02:04→20:53)
[2017-06-16] MEDS: PANTOPRAZOLE 40 MG INJ IV ×2 (05:18→17:12)
[2017-06-16] MEDS: METOCLOPRAMIDE 10 MG INJ IV ×3 (05:18→22:07)
[2017-06-16 05:46] LABS: ADD MAN DIFF? NO
[2017-06-16 05:55] LABS: BASOPHILS % 0.4 % (0.0-2.0); EOSINOPHILS # 0.2 10^3/ul (0.0-0.5); EOSINOPHILS % 2.5 % (0.0-7.0); HEMATOCRIT 39.6 % (37.0-47.0); HEMOGLOBIN 13.1 g/dl (12.0-16.0); LYMPHOCYTES # 0.6 10^3/ul (0.8-2.9); LYMPHOCYTES % 8.5 % (15.0-51.0); MEAN CORPUSCULAR HEMOGLOBIN 32.3 pg (29.0-33.0); MEAN CORPUSCULAR HGB CONC 33.1 g/dl (32.0-37.0); MEAN CORPUSCULAR VOLUME 97.5 fl (82.0-101.0); MEAN PLATELET VOLUME 9.9 fl (7.4-10.4); MONOCYTE # 0.7 10^3/ul (0.3-0.9); MONOCYTES % 9.6 % (0.0-11.0); NEUTROPHIL # 5.7 10^3/ul (1.6-7.5); NEUTROPHILS % 78.9 % (39.0-77.0); PLATELET COUNT 316 10^3/UL (140-415); RED BLOOD COUNT 4.06 10^6/ul (4.20-5.40); RED CELL DISTRIBUTION WIDTH 15.9 % (11.5-14.5)
[2017-06-16 05:55] LABS: WHITE BLOOD COUNT 7.3 10^3/ul (4.8-10.8)
[2017-06-16 06:09] LABS: ANION GAP 16 (8-16); BLOOD UREA NITROGEN 13 mg/dl (7-20); CALCIUM 9.3 mg/dl (8.4-10.2); CARBON DIOXIDE 28 mmol/L (21-31); CHLORIDE 99 mmol/L (97-110); GLUCOSE 136 mg/dl (70-220); INR 0.91; POTASSIUM 4.1 mmol/L (3.5-5.1); PROTIME 12.3 Sec (11.9-14.9); SODIUM 139 mmol/L (135-144)
[2017-06-16 06:10] LABS: PARTIAL THROMBOPLASTIN TIME 30.1 Sec (25.0-35.0)
[2017-06-16] MEDS: ONDANSETRON 4 MG INJ IV (08:22)
[2017-06-16] MEDS: HEPARIN 5,000 UNIT/0.5 ML VIAL SC ×2 (08:25→21:15)
[2017-06-16] MEDS: NA PHOSPHATE/BIPHOS 133 ML ENEMA PR (09:00)
[2017-06-16] MEDS: FAMOTIDINE 20 MG INJ (13:35)
[2017-06-16] MEDS: ETOMIDATE 20 MG INJ ×2 (13:35→13:39)
[2017-06-16] MEDS: FENTAnyl 50 MCG/ML VIAL (13:39)
[2017-06-16] MEDS: MIDAZOLAM 1 MG/ML 2 ML INJ (13:39)
[2017-06-16] MEDS: LIDOCAINE 2% (SDV) 5 ML INJ (13:39)
[2017-06-16] MEDS ORDERED: SODIUM CHLORIDE 0.9% 1L BAG IV (14:00)
[2017-06-16] MEDS ORDERED: ALBUMIN HUMAN 25% 50 ML IV (14:00)
[2017-06-16] MEDS: AMLODIPINE 10 MG TAB PO (14:28)
[2017-06-16] MEDS: LOSARTAN 50 MG TAB PO (14:28)
[2017-06-16] MEDS: ISOSORBIDE DINITRATE 10 MG TAB PO (14:28)
[2017-06-16] MEDS: INSULIN GLARGINE [LANtus] 3 ML PEN SC (21:04)
[2017-06-17] MEDS: PANTOPRAZOLE 40 MG INJ IV ×2 (06:00→17:44)
[2017-06-17] MEDS: METOCLOPRAMIDE 10 MG INJ IV ×3 (06:00→21:28)
[2017-06-17 07:54] LABS: PROTIME 12.2 Sec (11.9-14.9)
[2017-06-17 07:55] LABS: PARTIAL THROMBOPLASTIN TIME 42.9 Sec (25.0-35.0)
[2017-06-17 08:03] LABS: ANION GAP 14 (8-16); BLOOD UREA NITROGEN 25 mg/dl (7-20); CALCIUM 9.1 mg/dl (8.4-10.2); CARBON DIOXIDE 28 mmol/L (21-31); CHLORIDE 99 mmol/L (97-110); CREATININE 5.26 mg/dl (0.44-1.00); GLUCOSE 114 mg/dl (70-220); SODIUM 137 mmol/L (135-144)
[2017-06-17] MEDS: AMLODIPINE 10 MG TAB PO (08:23)
[2017-06-17] MEDS: ISOSORBIDE DINITRATE 10 MG TAB PO (08:23)
[2017-06-17] MEDS: LOSARTAN 50 MG TAB PO (08:24)
[2017-06-17] MEDS: HEPARIN 5,000 UNIT/0.5 ML VIAL SC ×2 (08:33→20:38)
[2017-06-17] MEDS: DEXTROSE 5%-0.45% NACL 1,000 ML IV (10:42)
[2017-06-17] MEDS: INSULIN GLARGINE [LANtus] 3 ML PEN SC (20:37)
[2017-06-17] MEDS: metroNIDAZOLE 500 MG TAB NGT (21:28)
[2017-06-18] MEDS: metroNIDAZOLE 500 MG TAB NGT ×3 (06:11→21:31)
[2017-06-18] MEDS: PANTOPRAZOLE 40 MG INJ IV ×2 (06:11→18:13)
[2017-06-18] MEDS: METOCLOPRAMIDE 10 MG INJ IV ×3 (06:11→21:32)
[2017-06-18 08:00] LABS: ADD MAN DIFF? NO
[2017-06-18 08:07] LABS: WHITE BLOOD COUNT 8.2 10^3/ul (4.8-10.8)
[2017-06-18 08:07] LABS: BASOPHIL # 0.1 10^3/ul (0.0-0.1); BASOPHILS % 0.7 % (0.0-2.0); EOSINOPHILS # 0.2 10^3/ul (0.0-0.5); EOSINOPHILS % 2.7 % (0.0-7.0); HEMATOCRIT 41.3 % (37.0-47.0); HEMOGLOBIN 13.9 g/dl (12.0-16.0); LYMPHOCYTES # 0.9 10^3/ul (0.8-2.9); LYMPHOCYTES % 11.4 % (15.0-51.0); MEAN CORPUSCULAR HGB CONC 33.7 g/dl (32.0-37.0); MEAN CORPUSCULAR VOLUME 95.2 fl (82.0-101.0); MEAN PLATELET VOLUME 9.7 fl (7.4-10.4); MONOCYTE # 0.6 10^3/ul (0.3-0.9); MONOCYTES % 6.8 % (0.0-11.0); NEUTROPHIL # 6.4 10^3/ul (1.6-7.5); NEUTROPHILS % 78.3 % (39.0-77.0); PLATELET COUNT 308 10^3/UL (140-415); RED BLOOD COUNT 4.34 10^6/ul (4.20-5.40); RED CELL DISTRIBUTION WIDTH 14.9 % (11.5-14.5)
[2017-06-18 08:24] LABS: ANION GAP 17 (8-16); BLOOD UREA NITROGEN 22 mg/dl (7-20); CARBON DIOXIDE 28 mmol/L (21-31); CHLORIDE 98 mmol/L (97-110); CREATININE 4.57 mg/dl (0.44-1.00); GLUCOSE 110 mg/dl (70-220); MAGNESIUM 2.4 mg/dl (1.7-2.5); POTASSIUM 3.8 mmol/L (3.5-5.1); SODIUM 139 mmol/L (135-144)
[2017-06-18 08:25] LABS: INR 0.93; PROTIME 12.5 Sec (11.9-14.9)
[2017-06-18 08:26] LABS: PARTIAL THROMBOPLASTIN TIME 32.1 Sec (25.0-35.0)
[2017-06-18] MEDS: HEPARIN 5,000 UNIT/0.5 ML VIAL SC ×2 (09:17→21:46)
[2017-06-18] MEDS: ISOSORBIDE DINITRATE 10 MG TAB PO (09:20)
[2017-06-18] MEDS: AMLODIPINE 10 MG TAB PO (09:21)
[2017-06-18] MEDS: LOSARTAN 50 MG TAB PO (09:22)
[2017-06-18] MEDS ORDERED: SOD CHLORIDE 0.9% 1,000 ML IV (10:27)
[2017-06-18] MEDS ORDERED: SODIUM CHLORIDE 0.9% 1L BAG IV (10:30)
[2017-06-18] MEDS ORDERED: ALBUMIN HUMAN 25% 50 ML IV (10:30)
[2017-06-18] MEDS: INSULIN GLARGINE [LANtus] 3 ML PEN SC (21:43)
[2017-06-19] MEDS: PANTOPRAZOLE 40 MG INJ IV ×2 (05:48→18:10)
[2017-06-19] MEDS: METOCLOPRAMIDE 10 MG INJ IV ×3 (05:48→22:20)
[2017-06-19] MEDS: metroNIDAZOLE 500 MG TAB NGT ×3 (05:49→22:20)
[2017-06-19 05:55] LABS: INR 0.87; PROTIME 11.9 Sec (11.9-14.9); PT RATIO 0.9
[2017-06-19 05:56] LABS: PARTIAL THROMBOPLASTIN TIME 34.6 Sec (25.0-35.0)
[2017-06-19] MEDS: LOSARTAN 50 MG TAB PO (08:46)
[2017-06-19] MEDS: AMLODIPINE 10 MG TAB PO (08:46)
[2017-06-19] MEDS: HEPARIN 5,000 UNIT/0.5 ML VIAL SC ×2 (09:05→20:37)
[2017-06-19] MEDS: SUCRALFATE (100 MG/ML) 10ML CUP GTB ×2 (18:10→20:35)
[2017-06-19] MEDS: INSULIN GLARGINE [LANtus] 3 ML PEN SC (20:43)
[2017-06-20] MEDS: PANTOPRAZOLE 40 MG INJ IV ×2 (05:59→17:10)
[2017-06-20] MEDS: METOCLOPRAMIDE 10 MG INJ IV ×3 (06:00→22:26)
[2017-06-20] MEDS: metroNIDAZOLE 500 MG TAB NGT ×3 (06:00→22:26)
[2017-06-20] MEDS: SUCRALFATE (100 MG/ML) 10ML CUP GTB ×4 (08:18→20:58)
[2017-06-20] MEDS: HEPARIN 5,000 UNIT/0.5 ML VIAL SC ×2 (08:23→21:12)
[2017-06-20] MEDS: LOSARTAN 50 MG TAB PO (09:00)
[2017-06-20] MEDS: AMLODIPINE 10 MG TAB PO (09:00)
[2017-06-20] MEDS: INSULIN ASPART [NOVOLOG] 3 ML PEN SC ×2 (17:18→20:58)
[2017-06-20] MEDS ORDERED: SOD CHLORIDE 0.9% 1,000 ML IV (18:38)
[2017-06-20] MEDS ORDERED: SODIUM CHLORIDE 0.9% 1L BAG IV (19:00)
[2017-06-20] MEDS ORDERED: ALBUMIN HUMAN 25% 50 ML IV (19:00)
[2017-06-20] MEDS: INSULIN GLARGINE [LANtus] 3 ML PEN SC (21:03)
[2017-06-20] MEDS: PHENOL 1.4% SOLN 180 ML BTL MT (22:28)
[2017-06-21] MEDS: PANTOPRAZOLE 40 MG INJ IV (05:39)
[2017-06-21] MEDS: metroNIDAZOLE 500 MG TAB NGT ×2 (05:39→14:33)
[2017-06-21] MEDS: METOCLOPRAMIDE 10 MG INJ IV ×2 (05:40→14:33)
[2017-06-21] MEDS: INSULIN ASPART [NOVOLOG] 3 ML PEN SC ×2 (08:13→12:15)
[2017-06-21] MEDS: SUCRALFATE (100 MG/ML) 10ML CUP GTB ×2 (09:00→14:32)
[2017-06-21] MEDS: AMLODIPINE 10 MG TAB PO ×2 (09:00→14:33)
[2017-06-21] MEDS: HEPARIN 5,000 UNIT/0.5 ML VIAL SC (09:00)
[2017-06-21] MEDS: LOSARTAN 50 MG TAB PO ×2 (09:00→14:33)
== END 2017-06-21 17:40 | disposition home or self-care (01) | DRG 391 ==
LOC: E/R 04:21 → MS2 06-18 12:06 → TEL 06-16 17:05 → MS3 12:50 → ICU 18:25
PROC: 0DJ08ZZ Inspection of Upper Intestinal Tract, Via Natural or Artificial Opening Endoscopic (ICD-10-PCS; principal; 2017-06-16 12:15)
PROC: 0DBM8ZX Excision of Descending Colon, Via Natural or Artificial Opening Endoscopic, Diagnostic (ICD-10-PCS; 2017-06-16 12:15)
PROC: 5A1D70Z Performance of Urinary Filtration, Intermittent, Less than 6 Hours Per Day (ICD-10-PCS; 2017-06-16 12:15)
DX: K29.90 Gastroduodenitis, unspecified, without bleeding (principal); N18.6 End stage renal disease; I95.9 Hypotension, unspecified; E11.9 Type 2 diabetes mellitus without complications; I12.0 Hypertensive chronic kidney disease with stage 5 chronic kidney disease or end stage renal disease; K51.50 Left sided colitis without complications; D64.9 Anemia, unspecified; I16.1 Hypertensive emergency; K20.9 Esophagitis, unspecified; K29.70 Gastritis, unspecified, without bleeding; R13.10 Dysphagia, unspecified; I25.10 Atherosclerotic heart disease of native coronary artery without angina pectoris; Z99.2 Dependence on renal dialysis; R11.2 Nausea with vomiting, unspecified; R51 Headache; R07.89 Other chest pain; Z79.4 Long term (current) use of insulin
CPT/HCPCS: 70450; 71045; 74018; 80048; 80053; 82550; 82553; 82962; 83690; 83735; 83880; 84100; 84484; 85025; 85049; 85610; 85730; 87081; 87340; 88305; 90935; 92526; 92610; 93005; 96374; 96375; 96376; 99291-25

== ENCOUNTER → 2017-06-27 | Emergency (ER) | payer MEDICARE, BC ==
[2017-06-27] MEDS: FAMOTIDINE 20 MG INJ IV (19:39)
[2017-06-27] MEDS: ONDANSETRON 4 MG INJ IV (19:39)
[2017-06-27] MEDS: morphine 4 MG/ML VIAL IV (19:39)
[2017-06-27 19:40] LABS: ADD MAN DIFF? NO
[2017-06-27 19:42] LABS: WHITE BLOOD COUNT 6.2 10^3/ul (4.8-10.8)
[2017-06-27 19:42] LABS: BASOPHIL # 0.1 10^3/ul (0.0-0.1); BASOPHILS % 0.8 % (0.0-2.0); EOSINOPHILS # 0.2 10^3/ul (0.0-0.5); EOSINOPHILS % 3.4 % (0.0-7.0); HEMATOCRIT 41.7 % (37.0-47.0); LYMPHOCYTES # 0.8 10^3/ul (0.8-2.9); LYMPHOCYTES % 12.9 % (15.0-51.0); MEAN CORPUSCULAR HEMOGLOBIN 31.5 pg (29.0-33.0); MEAN CORPUSCULAR HGB CONC 33.6 g/dl (32.0-37.0); MEAN CORPUSCULAR VOLUME 93.7 fl (82.0-101.0); MEAN PLATELET VOLUME 10.9 fl (7.4-10.4); MONOCYTE # 0.5 10^3/ul (0.3-0.9); NEUTROPHIL # 4.6 10^3/ul (1.6-7.5); NEUTROPHILS % 74.6 % (39.0-77.0); PLATELET COUNT 340 10^3/UL (140-415); RED BLOOD COUNT 4.45 10^6/ul (4.20-5.40); RED CELL DISTRIBUTION WIDTH 13.6 % (11.5-14.5)
[2017-06-27 20:10] LABS: ALANINE AMINOTRANSFERASE 31 IU/L (13-69); ALBUMIN 4.2 g/dl (3.3-4.9); ALKALINE PHOSPHATASE 97 IU/L (42-121); ANION GAP 16 (8-16); ASPARTATE AMINO TRANSFERASE 32 IU/L (15-46); BLOOD UREA NITROGEN 10 mg/dl (7-20); CALCIUM 9.3 mg/dl (8.4-10.2); CARBON DIOXIDE 33 mmol/L (21-31); CHLORIDE 93 mmol/L (97-110); CREATININE 2.12 mg/dl (0.44-1.00); GLUCOSE 98 mg/dl (70-220); LIPASE 116 U/L (23-300); POTASSIUM 3.4 mmol/L (3.5-5.1); SODIUM 139 mmol/L (135-144)
== END | disposition home or self-care (01) ==
LOC: E/R 19:14
DX: K29.70 Gastritis, unspecified, without bleeding (principal); I12.0 Hypertensive chronic kidney disease with stage 5 chronic kidney disease or end stage renal disease; N18.6 End stage renal disease; E11.22 Type 2 diabetes mellitus with diabetic chronic kidney disease; Z79.4 Long term (current) use of insulin; Z99.2 Dependence on renal dialysis
CPT/HCPCS: 36415; 74176; 80053; 83690; 85025; 96374; 96375; 99285-25

== ENCOUNTER 2017-07-08 10:28 | Emergency (ER) | payer MEDICARE, BC ==
[2017-07-08] MEDS: ASPIRIN 81 MG TAB PO (11:33)
[2017-07-08] MEDS: LORAZEPAM 2 MG INJ IV (11:44)
[2017-07-08 12:01] LABS: ADD MAN DIFF? NO
[2017-07-08 12:07] LABS: BASOPHILS % 0.4 % (0.0-2.0); EOSINOPHILS # 0.1 10^3/ul (0.0-0.5); EOSINOPHILS % 1.6 % (0.0-7.0); HEMATOCRIT 41.8 % (37.0-47.0); HEMOGLOBIN 14.4 g/dl (12.0-16.0); LYMPHOCYTES # 2.1 10^3/ul (0.8-2.9); LYMPHOCYTES % 31.7 % (15.0-51.0); MEAN CORPUSCULAR HEMOGLOBIN 30.8 pg (29.0-33.0); MEAN CORPUSCULAR HGB CONC 34.4 g/dl (32.0-37.0); MEAN CORPUSCULAR VOLUME 89.5 fl (82.0-101.0); MEAN PLATELET VOLUME 9.6 fl (7.4-10.4); MONOCYTE # 0.9 10^3/ul (0.3-0.9); MONOCYTES % 12.6 % (0.0-11.0); NEUTROPHIL # 3.6 10^3/ul (1.6-7.5); NEUTROPHILS % 53.4 % (39.0-77.0); PLATELET COUNT 333 10^3/UL (140-415); RED BLOOD COUNT 4.67 10^6/ul (4.20-5.40); RED CELL DISTRIBUTION WIDTH 14.5 % (11.5-14.5)
[2017-07-08 12:07] LABS: WHITE BLOOD COUNT 6.8 10^3/ul (4.8-10.8)
[2017-07-08 12:26] LABS: ANION GAP 21 (8-16); BLOOD UREA NITROGEN 9 mg/dl (7-20); CALCIUM 9.4 mg/dl (8.4-10.2); CARBON DIOXIDE 30 mmol/L (21-31); CHLORIDE 91 mmol/L (97-110); CREATININE 2.93 mg/dl (0.44-1.00); GLUCOSE 51 mg/dl (70-220); POTASSIUM 3.6 mmol/L (3.5-5.1); SODIUM 138 mmol/L (135-144)
[2017-07-08 12:37] LABS: TROPONIN-I 0.018 ng/ml (0.00-0.12)
[2017-07-08] MEDS ORDERED: ACETAMINOPHEN 325 MG TAB PO (13:30)
[2017-07-08] MEDS ORDERED: NITROGLYCERIN (SL) 0.4 MG TAB SL (14:00)
[2017-07-08] MEDS: NITROGLYCERIN 2% 1 GM OINT PKT TD (14:01)
[2017-07-08] MEDS ORDERED: DEXTROSE 50% 50 ML SYRINGE (14:33)
[2017-07-08] MEDS: DEXTROSE 50% 50 ML SYRINGE IV (14:43)
[2017-07-08] MEDS ORDERED: NACL 0.9% 3 ML SYG IV (15:30)
[2017-07-08] MEDS ORDERED: ONDANSETRON 4 MG INJ IV (15:30)
[2017-07-08] MEDS ORDERED: DOCUSATE SODIUM 100 MG CAP PO (15:30)
[2017-07-08] MEDS ORDERED: RANITIDINE 150 MG TAB PO (15:30)
[2017-07-08] MEDS ORDERED: GLUCOSE GEL 15 GRAM TUBE PO ×2 (16:00)
[2017-07-08] MEDS ORDERED: GLUCAGON 1 MG INJ IM (16:00)
[2017-07-08] MEDS ORDERED: DEXTROSE 50% 50 ML SYRINGE IV ×2 (16:00)
[2017-07-08] MEDS ORDERED: GLUCOSE GEL 15 GRAM TUBE BUCCAL (16:00)
[2017-07-08] MEDS: SUCRALFATE (100 MG/ML) 10ML CUP GTB ×2 (16:39→23:01)
[2017-07-08] MEDS: INSULIN ASPART [NOVOLOG] 3 ML PEN SC ×2 (18:00→21:00)
[2017-07-08 18:14] LABS: TROPONIN-I < 0.012 ng/ml (0.00-0.12)
[2017-07-08 18:16] LABS: CK INDEX 0.9; CREATINE KINASE 42 IU/L (23-200)
[2017-07-08 18:41] LABS: CK-MB 0.36 ng/ml (0.0-2.4)
[2017-07-08] MEDS: SEVELAMER 800 MG TAB PO (19:00)
[2017-07-08] MEDS: ONDANSETRON 4 MG INJ IV (19:30)
[2017-07-08 20:30] LABS: CREATINE KINASE 46 IU/L (23-200)
[2017-07-08 20:58] LABS: CK INDEX 0.8
[2017-07-08 20:59] LABS: CK-MB 0.38 ng/ml (0.0-2.4)
[2017-07-08 21:01] LABS: TROPONIN-I < 0.012 ng/ml (0.00-0.12)
[2017-07-08] MEDS: METOCLOPRAMIDE 10 MG TAB PO (23:00)
[2017-07-08 23:02] LABS: CREATINE KINASE 42 IU/L (23-200)
[2017-07-08 23:11] LABS: CK INDEX 0.8; CK-MB 0.35 ng/ml (0.0-2.4)
[2017-07-08 23:18] LABS: TROPONIN-I < 0.012 ng/ml (0.00-0.12)
[2017-07-09] MEDS: ACCU-CHEK XX ×2 (02:00→21:31)
[2017-07-09] MEDS: PANTOPRAZOLE 40 MG INJ IV (05:25)
[2017-07-09] MEDS: INSULIN ASPART [NOVOLOG] 3 ML PEN SC ×4 (08:00→21:00)
[2017-07-09] MEDS: FLUOXETINE 20 MG CAP PO (08:37)
[2017-07-09] MEDS: SUCRALFATE (100 MG/ML) 10ML CUP GTB ×4 (08:37→21:28)
[2017-07-09] MEDS: METOCLOPRAMIDE 10 MG TAB PO ×3 (08:37→21:29)
[2017-07-09] MEDS: MULTIVIT/CA CARB/B CMPLX/FA TAB PO (08:37)
[2017-07-09] MEDS: SEVELAMER 800 MG TAB PO ×4 (08:37→21:29)
[2017-07-09] MEDS: ONDANSETRON (ODT) 4 MG TAB ODT (08:46)
[2017-07-09] MEDS: AMLODIPINE 10 MG TAB PO (08:52)
[2017-07-09] MEDS: LOSARTAN 50 MG TAB PO (08:52)
[2017-07-09] MEDS: ISOSORBIDE DINITRATE 10 MG TAB PO ×2 (08:52→21:30)
[2017-07-09 09:51] LABS: ADD MAN DIFF? NO
[2017-07-09 09:57] LABS: WHITE BLOOD COUNT 4.4 10^3/ul (4.8-10.8)
[2017-07-09 09:57] LABS: BASOPHIL # 0.1 10^3/ul (0.0-0.1); BASOPHILS % 1.1 % (0.0-2.0); EOSINOPHILS # 0.1 10^3/ul (0.0-0.5); EOSINOPHILS % 2.7 % (0.0-7.0); HEMATOCRIT 37.3 % (37.0-47.0); HEMOGLOBIN 12.7 g/dl (12.0-16.0); LYMPHOCYTES % 23.6 % (15.0-51.0); MEAN CORPUSCULAR HEMOGLOBIN 31.1 pg (29.0-33.0); MEAN CORPUSCULAR VOLUME 91.2 fl (82.0-101.0); MEAN PLATELET VOLUME 9.5 fl (7.4-10.4); MONOCYTE # 0.5 10^3/ul (0.3-0.9); MONOCYTES % 11.6 % (0.0-11.0); NEUTROPHIL # 2.7 10^3/ul (1.6-7.5); NEUTROPHILS % 60.8 % (39.0-77.0); PLATELET COUNT 293 10^3/UL (140-415); RED BLOOD COUNT 4.09 10^6/ul (4.20-5.40); RED CELL DISTRIBUTION WIDTH 14.6 % (11.5-14.5)
[2017-07-09 10:14] LABS: CREATINE KINASE 42 IU/L (23-200)
[2017-07-09 10:22] LABS: ALANINE AMINOTRANSFERASE 20 IU/L (13-69); ALBUMIN 3.6 g/dl (3.3-4.9); ALKALINE PHOSPHATASE 73 IU/L (42-121); ANION GAP 18 (8-16); ASPARTATE AMINO TRANSFERASE 28 IU/L (15-46); BLOOD UREA NITROGEN 14 mg/dl (7-20); CALCIUM 8.7 mg/dl (8.4-10.2); CARBON DIOXIDE 29 mmol/L (21-31); CHLORIDE 92 mmol/L (97-110); CREATININE 3.74 mg/dl (0.44-1.00); GLUCOSE 88 mg/dl (70-220); POTASSIUM 4.8 mmol/L (3.5-5.1); SODIUM 134 mmol/L (135-144)
[2017-07-09 10:27] LABS: CK INDEX 0.7; CK-MB 0.31 ng/ml (0.0-2.4)
[2017-07-09 10:32] LABS: TROPONIN-I < 0.012 ng/ml (0.00-0.12)
[2017-07-09] MEDS ORDERED: SODIUM CHLORIDE 0.9% 1L BAG IV (16:30)
[2017-07-09] MEDS ORDERED: NITROGLYCERIN (SL) 0.4 MG TAB SL (17:30)
[2017-07-09] MEDS: ACETAMINOPHEN 325 MG TAB PO (21:28)
[2017-07-09] MEDS: BISACODYL (EC) 5 MG TAB PO (21:36)
[2017-07-10] MEDS: PANTOPRAZOLE 40 MG INJ IV (06:17)
[2017-07-10] MEDS: INSULIN ASPART [NOVOLOG] 3 ML PEN SC ×5 (08:00→21:00)
[2017-07-10] MEDS: MULTIVIT/CA CARB/B CMPLX/FA TAB PO (08:47)
[2017-07-10] MEDS: SUCRALFATE (100 MG/ML) 10ML CUP GTB ×4 (08:47→21:26)
[2017-07-10] MEDS: SEVELAMER 800 MG TAB PO ×3 (08:47→17:25)
[2017-07-10] MEDS: AMLODIPINE 10 MG TAB PO (08:48)
[2017-07-10] MEDS: METOCLOPRAMIDE 10 MG TAB PO ×3 (08:48→21:25)
[2017-07-10] MEDS: FLUOXETINE 20 MG CAP PO (08:48)
[2017-07-10] MEDS: ISOSORBIDE DINITRATE 10 MG TAB PO ×3 (08:49→21:29)
[2017-07-10] MEDS: LOSARTAN 50 MG TAB PO (08:49)
[2017-07-10 09:36] LABS: CHOLESTEROL 193 mg/dl (100-200)
[2017-07-10 09:36] LABS: CHOL/HDL RATIO 2.4 RATIO; HDL CHOLESTEROL 80 mg/dl (33-92); LDL CHOLESTEROL,CALCULATED 102 mg/dl; TRIGLYCERIDES 55 mg/dl (0-149)
[2017-07-10] MEDS: traMADol 50 MG TAB PO (16:24)
[2017-07-10] MEDS ORDERED: BISACODYL 10 MG SUPP PR (20:00)
[2017-07-10] MEDS: SENNA TAB PO (21:26)
[2017-07-10] MEDS: ACCU-CHEK XX (21:32)
[2017-07-11] MEDS: PANTOPRAZOLE 40 MG INJ IV (06:20)
[2017-07-11] MEDS: INSULIN ASPART [NOVOLOG] 3 ML PEN SC ×2 (08:00→11:47)
[2017-07-11] MEDS: FLUOXETINE 10 MG CAP PO (08:32)
[2017-07-11] MEDS: METOCLOPRAMIDE 10 MG TAB PO ×2 (08:32→15:21)
[2017-07-11] MEDS: MULTIVIT/CA CARB/B CMPLX/FA TAB PO (08:32)
[2017-07-11] MEDS: ASPIRIN 81 MG TAB PO (08:32)
[2017-07-11] MEDS: SUCRALFATE (100 MG/ML) 10ML CUP GTB ×2 (08:32→15:20)
[2017-07-11] MEDS: AMLODIPINE 10 MG TAB PO (08:33)
[2017-07-11] MEDS: ISOSORBIDE DINITRATE 10 MG TAB PO ×2 (08:33→15:21)
[2017-07-11] MEDS: SEVELAMER 800 MG TAB PO ×2 (08:33→11:59)
[2017-07-11] MEDS: LOSARTAN 50 MG TAB PO (08:33)
[2017-07-11] MEDS: INFLUENZA VIRUS VACCINE 0.5 ML (DISPENSING) IM* (09:00)
== END 2017-07-11 16:45 | disposition home or self-care (01) ==
LOC: E/R 10:28 → MS4 13:27
DX: R07.9 Chest pain, unspecified (principal); I12.0 Hypertensive chronic kidney disease with stage 5 chronic kidney disease or end stage renal disease; E11.22 Type 2 diabetes mellitus with diabetic chronic kidney disease; N18.6 End stage renal disease; Z99.2 Dependence on renal dialysis; Z79.4 Long term (current) use of insulin; E78.5 Hyperlipidemia, unspecified; I25.10 Atherosclerotic heart disease of native coronary artery without angina pectoris; R10.13 Epigastric pain; F32.9 Major depressive disorder, single episode, unspecified; F41.9 Anxiety disorder, unspecified; K59.00 Constipation, unspecified; R11.2 Nausea with vomiting, unspecified
CPT/HCPCS: 36415; 71045; 80048; 80053; 80061; 82550; 82553; 82962; 84484; 85025; 87081; 90935; 93005; 96374; 96375; 99291-25; G0378

== ENCOUNTER 2017-08-04 16:19 | Inpatient (IN) | payer MEDICARE, BC ==
[2017-08-04 17:09] LABS: ADD MAN DIFF? NO
[2017-08-04] MEDS: ALBUTEROL 0.5% (NEB) 2.5 MG/0.5 ML AMP NEB (17:09)
[2017-08-04 17:18] LABS: WHITE BLOOD COUNT 5.1 10^3/ul (4.8-10.8)
[2017-08-04 17:18] LABS: BASOPHIL # 0.1 10^3/ul (0.0-0.1); BASOPHILS % 1.2 % (0.0-2.0); EOSINOPHILS # 0.1 10^3/ul (0.0-0.5); EOSINOPHILS % 2.2 % (0.0-7.0); HEMATOCRIT 35.5 % (37.0-47.0); HEMOGLOBIN 12.1 g/dl (12.0-16.0); LYMPHOCYTES # 1.1 10^3/ul (0.8-2.9); LYMPHOCYTES % 21.3 % (15.0-51.0); MEAN CORPUSCULAR HEMOGLOBIN 29.9 pg (29.0-33.0); MEAN CORPUSCULAR HGB CONC 34.1 g/dl (32.0-37.0); MEAN CORPUSCULAR VOLUME 87.7 fl (82.0-101.0); MEAN PLATELET VOLUME 11.4 fl (7.4-10.4); MONOCYTE # 0.5 10^3/ul (0.3-0.9); MONOCYTES % 9.1 % (0.0-11.0); NEUTROPHIL # 3.4 10^3/ul (1.6-7.5); PLATELET COUNT 308 10^3/UL (140-415); RED BLOOD COUNT 4.05 10^6/ul (4.20-5.40); RED CELL DISTRIBUTION WIDTH 15.1 % (11.5-14.5)
[2017-08-04 17:33] LABS: PROTIME 11.1 Sec (11.9-14.9); PT RATIO 0.9
[2017-08-04 17:40] LABS: ALANINE AMINOTRANSFERASE 12 IU/L (13-69); ALBUMIN 4.4 g/dl (3.3-4.9); ALBUMIN/GLOBULIN RATIO 1.37; ALKALINE PHOSPHATASE 102 IU/L (42-121); ANION GAP 22 (8-16); ASPARTATE AMINO TRANSFERASE 28 IU/L (15-46); BLOOD UREA NITROGEN 36 mg/dl (7-20); CALCIUM 9.6 mg/dl (8.4-10.2); CARBON DIOXIDE 28 mmol/L (21-31); CHLORIDE 92 mmol/L (97-110); CREATININE 6.36 mg/dl (0.44-1.00); GLUCOSE 141 mg/dl (70-220); LIPASE 76 U/L (23-300); POTASSIUM 4.2 mmol/L (3.5-5.1); SODIUM 138 mmol/L (135-144); TOTAL PROTEIN 7.6 g/dl (6.1-8.1)
[2017-08-04] MEDS: ONDANSETRON 4 MG INJ IV (17:50)
[2017-08-04] MEDS: morphine 4 MG/ML VIAL IV (17:51)
[2017-08-04 18:03] LABS: B-TYPE NATRIURETIC PEPTIDE 17400 PG/ML (0-125); TROPONIN-I 0.013 ng/ml (0.00-0.12)
[2017-08-04 19:47] LABS: AADO2 Arterial 55.8 mmHg (7.0-24.0); Arterial Base Excess 4.4 mmol/L (-3.0-3); Arterial Blood Gas Oxygen Sat 99.2 mmHG (95.0-100.0); Arterial COHb 0.3 % (0.0-3.0); Arterial Fraction of Oxyhgb 98.7 % (93.0-99.0); Arterial HCO3 23.6 mmol/L (22.0-26.0); Arterial MetHb 0.2 % (0.0-1.5); Arterial Total Hemglobin 11.6 g/dl (12.0-18.0); Arterial pCO2 21.1 mmhg (35-45); Blood Gas IEPAP 15/5; Blood Gas PS 10; MODE MASK - BIPAP; Site LB
[2017-08-04] MEDS ORDERED: hydrALAzine 20 MG INJ IV (22:00)
[2017-08-04] MEDS ORDERED: GLUCAGON 1 MG INJ IM (22:30)
[2017-08-04] MEDS ORDERED: GLUCOSE GEL 15 GRAM TUBE BUCCAL (22:30)
[2017-08-04] MEDS ORDERED: GLUCOSE GEL 15 GRAM TUBE PO ×2 (22:30)
[2017-08-04] MEDS ORDERED: DEXTROSE 50% 50 ML SYRINGE IV ×2 (22:30)
[2017-08-04] MEDS: traMADol 50 MG TAB PO (22:40)
[2017-08-04] MEDS: ALBUTEROL/IPRATROPIUM (NEB) 3 ML AMP HHN (23:07)
[2017-08-04] MEDS: LUBIPROSTONE 24 MCG CAP PO (23:42)
[2017-08-05] MEDS ORDERED: ACCU-CHEK XX (02:00)
[2017-08-05] MEDS: ACCU-CHEK XX (02:00)
[2017-08-05 07:48] LABS: HEMOGLOBIN A1C 5.6 % (0-5.9)
[2017-08-05] MEDS ORDERED: INSULIN ASPART [NOVOLOG] 3 ML PEN SC (07:55)
[2017-08-05] MEDS: INSULIN ASPART [NOVOLOG] 3 ML PEN SC ×4 (07:55→21:00)
[2017-08-05 08:26] LABS: HEPATITIS B SURFACE ANTIGEN NEGATIVE (NEGATIVE)
[2017-08-05] MEDS: ONDANSETRON (ODT) 4 MG TAB ODT (08:38)
[2017-08-05] MEDS: AMLODIPINE 10 MG TAB PO (08:41)
[2017-08-05] MEDS: SEVELAMER 800 MG TAB PO ×3 (08:42→18:03)
[2017-08-05] MEDS: LOSARTAN 50 MG TAB PO (08:42)
[2017-08-05] MEDS: FLUOXETINE 20 MG CAP PO (08:42)
[2017-08-05] MEDS: ISOSORBIDE DINITRATE 10 MG TAB PO (08:42)
[2017-08-05] MEDS: MULTIVIT/CA CARB/B CMPLX/FA TAB PO (08:43)
[2017-08-05] MEDS: LUBIPROSTONE 24 MCG CAP PO ×2 (08:43→21:03)
[2017-08-05] MEDS: LORAZEPAM 2 MG INJ IV (09:40)
[2017-08-05] MEDS: ONDANSETRON 4 MG INJ IV ×2 (09:42→23:42)
[2017-08-05 10:38] LABS: AADO2 Arterial 145.9 mmHg (7.0-24.0); Allen Test ACCEPTAB; Arterial Base Excess 4.4 mmol/L (-3.0-3); Arterial COHb 0.3 % (0.0-3.0); Arterial Fraction of Oxyhgb 97.7 % (93.0-99.0); Arterial HCO3 30.1 mmol/L (22.0-26.0); Arterial MetHb 0.6 % (0.0-1.5); Arterial Total Hemglobin 11.7 g/dl (12.0-18.0); Arterial pCO2 48.3 mmhg (35-45); MODE MASK - VENTI; Site Right Brachial
[2017-08-05] MEDS: ALBUTEROL/IPRATROPIUM (NEB) 3 ML AMP HHN ×3 (13:21→20:38)
[2017-08-05] MEDS ORDERED: ALBUMIN HUMAN 25% 50 ML IV (16:30)
[2017-08-05] MEDS: ALPRAZOLAM 0.25 MG TAB PO (23:42)
[2017-08-06] MEDS: ALBUTEROL/IPRATROPIUM (NEB) 3 ML AMP HHN ×6 (00:05→20:39)
[2017-08-06] MEDS: ACCU-CHEK XX (02:00)
[2017-08-06] MEDS: INSULIN ASPART [NOVOLOG] 3 ML PEN SC ×4 (07:55→21:00)
[2017-08-06 08:12] LABS: ANION GAP 12 (8-16); BLOOD UREA NITROGEN 21 mg/dl (7-20); CALCIUM 8.6 mg/dl (8.4-10.2); CARBON DIOXIDE 30 mmol/L (21-31); CHLORIDE 96 mmol/L (97-110); CREATININE 4.21 mg/dl (0.44-1.00); GLUCOSE 87 mg/dl (70-220); POTASSIUM 4.3 mmol/L (3.5-5.1); SODIUM 134 mmol/L (135-144)
[2017-08-06] MEDS: SEVELAMER 800 MG TAB PO ×3 (08:18→18:35)
[2017-08-06] MEDS: AMLODIPINE 10 MG TAB PO (09:00)
[2017-08-06] MEDS: LOSARTAN 50 MG TAB PO (09:00)
[2017-08-06] MEDS: ISOSORBIDE DINITRATE 10 MG TAB PO (12:13)
[2017-08-06] MEDS: LUBIPROSTONE 24 MCG CAP PO ×2 (12:14→21:16)
[2017-08-06] MEDS: MULTIVIT/CA CARB/B CMPLX/FA TAB PO (12:14)
[2017-08-06] MEDS: FLUOXETINE 10 MG CAP PO (12:14)
[2017-08-06] MEDS: ALPRAZOLAM 0.25 MG TAB PO (14:09)
[2017-08-06 15:26] LABS: AADO2 Arterial 89.5 mmHg (7.0-24.0); Allen Test ACCEPTAB; Arterial Base Excess 3.8 mmol/L (-3.0-3); Arterial Blood Gas Oxygen Sat 98.6 mmHG (95.0-100.0); Arterial COHb 0.1 % (0.0-3.0); Arterial Fraction of Oxyhgb 98.2 % (93.0-99.0); Arterial HCO3 23.4 mmol/L (22.0-26.0); Arterial MetHb 0.3 % (0.0-1.5); Arterial Total Hemglobin 8.6 g/dl (12.0-18.0); Arterial pCO2 20.1 mmhg (35-45); MODE MASK - VENTI; Site Right Radial
[2017-08-06] MEDS: LORAZEPAM 2 MG INJ IV (16:49)
[2017-08-07] MEDS: ALBUTEROL/IPRATROPIUM (NEB) 3 ML AMP HHN ×6 (00:07→20:13)
[2017-08-07] MEDS: ACCU-CHEK XX (02:00)
[2017-08-07] MEDS: INSULIN ASPART [NOVOLOG] 3 ML PEN SC ×4 (07:55→20:40)
[2017-08-07 08:53] LABS: ANION GAP 13 (8-16); BLOOD UREA NITROGEN 14 mg/dl (7-20); CALCIUM 9.1 mg/dl (8.4-10.2); CARBON DIOXIDE 29 mmol/L (21-31); CHLORIDE 100 mmol/L (97-110); CREATININE 3.11 mg/dl (0.44-1.00); GLUCOSE 76 mg/dl (70-220); POTASSIUM 4.7 mmol/L (3.5-5.1); SODIUM 137 mmol/L (135-144)
[2017-08-07] MEDS: ISOSORBIDE DINITRATE 10 MG TAB PO (08:54)
[2017-08-07] MEDS: LOSARTAN 50 MG TAB PO (08:55)
[2017-08-07] MEDS: MULTIVIT/CA CARB/B CMPLX/FA TAB PO (08:55)
[2017-08-07] MEDS: SEVELAMER 800 MG TAB PO ×3 (08:55→18:19)
[2017-08-07] MEDS: AMLODIPINE 10 MG TAB PO (08:56)
[2017-08-07] MEDS: FLUOXETINE 10 MG CAP PO (08:56)
[2017-08-07] MEDS: ALPRAZOLAM 0.25 MG TAB PO (08:56)
[2017-08-07] MEDS: LUBIPROSTONE 24 MCG CAP PO ×2 (09:05→20:37)
[2017-08-07] MEDS: LORAZEPAM 2 MG INJ IV (13:52)
[2017-08-08] MEDS: ALBUTEROL/IPRATROPIUM (NEB) 3 ML AMP HHN ×7 (00:20→20:17)
[2017-08-08] MEDS: ACCU-CHEK XX (02:00)
[2017-08-08] MEDS: ONDANSETRON 4 MG INJ IV (07:42)
[2017-08-08] MEDS: INSULIN ASPART [NOVOLOG] 3 ML PEN SC ×4 (07:55→21:00)
[2017-08-08] MEDS: FLUOXETINE 10 MG CAP PO (08:05)
[2017-08-08] MEDS: ALPRAZOLAM 0.25 MG TAB PO (08:05)
[2017-08-08] MEDS: LUBIPROSTONE 24 MCG CAP PO ×2 (08:05→21:16)
[2017-08-08] MEDS: SEVELAMER 800 MG TAB PO ×3 (08:05→18:31)
[2017-08-08] MEDS: MULTIVIT/CA CARB/B CMPLX/FA TAB PO (08:05)
[2017-08-08] MEDS: LOSARTAN 50 MG TAB PO (08:12)
[2017-08-08] MEDS: ISOSORBIDE DINITRATE 10 MG TAB PO (08:12)
[2017-08-08] MEDS: AMLODIPINE 10 MG TAB PO (08:12)
[2017-08-08] MEDS: LORAZEPAM 2 MG INJ IV (09:02)
[2017-08-09] MEDS: ALBUTEROL/IPRATROPIUM (NEB) 3 ML AMP HHN ×6 (00:01→20:08)
[2017-08-09] MEDS: traMADol 50 MG TAB PO (00:50)
[2017-08-09] MEDS: ALPRAZOLAM 0.5 MG TAB PO ×3 (00:58→21:13)
[2017-08-09] MEDS: LORAZEPAM 2 MG INJ IM (01:24)
[2017-08-09] MEDS: ACCU-CHEK XX ×2 (02:00→21:50)
[2017-08-09] MEDS: INSULIN ASPART [NOVOLOG] 3 ML PEN SC ×4 (07:55→20:38)
[2017-08-09] MEDS: MULTIVIT/CA CARB/B CMPLX/FA TAB PO (08:17)
[2017-08-09] MEDS: SEVELAMER 800 MG TAB PO ×3 (08:17→17:40)
[2017-08-09] MEDS: FLUOXETINE 10 MG CAP PO (08:17)
[2017-08-09] MEDS: LUBIPROSTONE 24 MCG CAP PO ×2 (08:17→21:13)
[2017-08-09] MEDS: AMLODIPINE 10 MG TAB PO (08:17)
[2017-08-09] MEDS: ISOSORBIDE DINITRATE 10 MG TAB PO (08:18)
[2017-08-09] MEDS: LOSARTAN 50 MG TAB PO (08:18)
[2017-08-09 10:42] LABS: ADD MAN DIFF? NO
[2017-08-09 10:48] LABS: BASOPHILS % 0.5 % (0.0-2.0); EOSINOPHILS # 0.1 10^3/ul (0.0-0.5); EOSINOPHILS % 2.5 % (0.0-7.0); HEMATOCRIT 30.9 % (37.0-47.0); HEMOGLOBIN 10.6 g/dl (12.0-16.0); LYMPHOCYTES # 0.9 10^3/ul (0.8-2.9); LYMPHOCYTES % 16.6 % (15.0-51.0); MEAN CORPUSCULAR HGB CONC 34.3 g/dl (32.0-37.0); MEAN CORPUSCULAR VOLUME 87.5 fl (82.0-101.0); MEAN PLATELET VOLUME 11.2 fl (7.4-10.4); MONOCYTE # 0.7 10^3/ul (0.3-0.9); MONOCYTES % 12.8 % (0.0-11.0); NEUTROPHIL # 3.7 10^3/ul (1.6-7.5); NEUTROPHILS % 67.4 % (39.0-77.0); PLATELET COUNT 250 10^3/UL (140-415); RED BLOOD COUNT 3.53 10^6/ul (4.20-5.40); RED CELL DISTRIBUTION WIDTH 15.3 % (11.5-14.5)
[2017-08-09 10:48] LABS: WHITE BLOOD COUNT 5.6 10^3/ul (4.8-10.8)
[2017-08-09 11:03] LABS: ANION GAP 17 (8-16); BLOOD UREA NITROGEN 18 mg/dl (7-20); CALCIUM 9.2 mg/dl (8.4-10.2); CARBON DIOXIDE 26 mmol/L (21-31); CHLORIDE 100 mmol/L (97-110); CREATININE 3.49 mg/dl (0.44-1.00); GLUCOSE 89 mg/dl (70-220); POTASSIUM 4.4 mmol/L (3.5-5.1); SODIUM 139 mmol/L (135-144)
[2017-08-09] MEDS: ONDANSETRON 4 MG INJ IV ×2 (15:00→21:13)
[2017-08-09] MEDS: METOCLOPRAMIDE 10 MG INJ IV (17:59)
[2017-08-10] MEDS: ALBUTEROL/IPRATROPIUM (NEB) 3 ML AMP HHN ×7 (00:18→20:11)
[2017-08-10] MEDS: INSULIN ASPART [NOVOLOG] 3 ML PEN SC ×4 (07:55→21:00)
[2017-08-10] MEDS: SEVELAMER 800 MG TAB PO ×3 (08:20→17:50)
[2017-08-10] MEDS: AMLODIPINE 10 MG TAB PO (09:03)
[2017-08-10] MEDS: MULTIVIT/CA CARB/B CMPLX/FA TAB PO (09:03)
[2017-08-10] MEDS: LUBIPROSTONE 24 MCG CAP PO ×2 (09:03→20:55)
[2017-08-10] MEDS: LOSARTAN 50 MG TAB PO (09:04)
[2017-08-10] MEDS: ISOSORBIDE DINITRATE 10 MG TAB PO (09:04)
[2017-08-10] MEDS: FLUOXETINE 10 MG CAP PO (09:08)
[2017-08-10] MEDS: traMADol 50 MG TAB PO (12:59)
[2017-08-10] MEDS: ONDANSETRON 4 MG INJ IV (13:26)
[2017-08-10] MEDS: ALPRAZOLAM 0.5 MG TAB PO (13:38)
[2017-08-11] MEDS: ALBUTEROL/IPRATROPIUM (NEB) 3 ML AMP HHN ×6 (01:19→21:06)
[2017-08-11] MEDS: ACCU-CHEK XX (02:00)
[2017-08-11] MEDS: INSULIN ASPART [NOVOLOG] 3 ML PEN SC ×4 (07:55→21:00)
[2017-08-11] MEDS: SEVELAMER 800 MG TAB PO ×3 (08:27→18:16)
[2017-08-11] MEDS: ISOSORBIDE DINITRATE 10 MG TAB PO (08:27)
[2017-08-11] MEDS: FLUOXETINE 10 MG CAP PO (08:27)
[2017-08-11] MEDS: MULTIVIT/CA CARB/B CMPLX/FA TAB PO (08:27)
[2017-08-11] MEDS: LOSARTAN 50 MG TAB PO (08:28)
[2017-08-11] MEDS: AMLODIPINE 10 MG TAB PO (08:28)
[2017-08-11] MEDS: LUBIPROSTONE 24 MCG CAP PO ×2 (08:28→21:14)
[2017-08-11] MEDS: METOCLOPRAMIDE 10 MG INJ IV (09:41)
[2017-08-11] MEDS: ALBUMIN HUMAN 25% 100 ML IV (10:34)
[2017-08-11] MEDS: ALPRAZOLAM 0.5 MG TAB PO (13:30)
[2017-08-12] MEDS: ALBUTEROL/IPRATROPIUM (NEB) 3 ML AMP HHN ×5 (01:00→17:22)
[2017-08-12] MEDS: ACCU-CHEK XX (02:00)
[2017-08-12] MEDS: INSULIN ASPART [NOVOLOG] 3 ML PEN SC ×3 (07:55→17:55)
[2017-08-12] MEDS: ALPRAZOLAM 0.5 MG TAB PO (08:01)
[2017-08-12] MEDS: traMADol 50 MG TAB PO (08:01)
[2017-08-12] MEDS: SEVELAMER 800 MG TAB PO ×3 (08:06→18:02)
[2017-08-12] MEDS: FLUOXETINE 10 MG CAP PO (08:18)
[2017-08-12] MEDS: LOSARTAN 50 MG TAB PO (08:19)
[2017-08-12] MEDS: MULTIVIT/CA CARB/B CMPLX/FA TAB PO (08:19)
[2017-08-12] MEDS: AMLODIPINE 10 MG TAB PO (08:19)
[2017-08-12] MEDS: LUBIPROSTONE 24 MCG CAP PO (08:19)
[2017-08-12] MEDS: METOCLOPRAMIDE 10 MG INJ IV (08:20)
[2017-08-12] MEDS: ISOSORBIDE DINITRATE 10 MG TAB PO (08:20)
== END 2017-08-12 18:50 | DRG 291 ==
LOC: E/R 16:19 → TEL 18:01
PROC: 5A1D70Z Performance of Urinary Filtration, Intermittent, Less than 6 Hours Per Day (ICD-10-PCS; principal; 2017-08-05)
DX: I13.2 Hypertensive heart and chronic kidney disease with heart failure and with stage 5 chronic kidney disease, or end stage renal disease (principal); N18.6 End stage renal disease; J96.00 Acute respiratory failure, unspecified whether with hypoxia or hypercapnia; I50.30 Unspecified diastolic (congestive) heart failure; N17.9 Acute kidney failure, unspecified; F33.9 Major depressive disorder, recurrent, unspecified; E11.22 Type 2 diabetes mellitus with diabetic chronic kidney disease; Z99.2 Dependence on renal dialysis; Z91.15 Patient's noncompliance with renal dialysis
CPT/HCPCS: 36415; 36600; 71045; 80048; 80053; 82803; 82962; 83036; 83690; 83880; 84484; 85025; 85610; 87081; 87340; 87400; 90935; 93005; 94640; 94644; 94660; 94664; 96374; 96375; 97116; 97164; 97530; 99291-25

== ENCOUNTER 2017-08-14 23:51 | Inpatient (IN) | payer MEDICARE, BC ==
[2017-08-15 01:19] LABS: ADD MAN DIFF? NO
[2017-08-15 01:22] LABS: ABNORMAL IP MESSAGE 1; BASOPHILS % 0.2 % (0.0-2.0); EOSINOPHILS # 0.1 10^3/ul (0.0-0.5); EOSINOPHILS % 0.6 % (0.0-7.0); HEMATOCRIT 31.4 % (37.0-47.0); HEMOGLOBIN 10.7 g/dl (12.0-16.0); LYMPHOCYTES # 0.5 10^3/ul (0.8-2.9); LYMPHOCYTES % 5.2 % (15.0-51.0); MEAN CORPUSCULAR HEMOGLOBIN 29.7 pg (29.0-33.0); MEAN CORPUSCULAR HGB CONC 34.1 g/dl (32.0-37.0); MEAN CORPUSCULAR VOLUME 87.2 fl (82.0-101.0); MEAN PLATELET VOLUME 11.4 fl (7.4-10.4); MONOCYTE # 0.5 10^3/ul (0.3-0.9); MONOCYTES % 5.7 % (0.0-11.0); NEUTROPHIL # 7.6 10^3/ul (1.6-7.5); PLATELET COUNT 285 10^3/UL (140-415); RED CELL DISTRIBUTION WIDTH 15.3 % (11.5-14.5)
[2017-08-15 01:22] LABS: WHITE BLOOD COUNT 8.6 10^3/ul (4.8-10.8)
[2017-08-15 01:30] LABS: POSITIVE DIFF @See below
[2017-08-15 01:43] LABS: PHOSPHORUS 1.4 mg/dl (2.5-4.9)
[2017-08-15 01:43] LABS: MAGNESIUM 2.5 mg/dl (1.7-2.5)
[2017-08-15 01:44] LABS: ALANINE AMINOTRANSFERASE 19 IU/L (13-69); ALBUMIN 4.1 g/dl (3.3-4.9); ALBUMIN/GLOBULIN RATIO 1.24; ALKALINE PHOSPHATASE 118 IU/L (42-121); ANION GAP 23 (8-16); ASPARTATE AMINO TRANSFERASE 37 IU/L (15-46); BILIRUBIN,INDIRECT 0.6 mg/dl (0-1.1); BILIRUBIN,TOTAL 0.6 mg/dl (0.2-1.3); BLOOD UREA NITROGEN 19 mg/dl (7-20); CARBON DIOXIDE 27 mmol/L (21-31); CHLORIDE 93 mmol/L (97-110); CREATININE 3.34 mg/dl (0.44-1.00); GLUCOSE 141 mg/dl (70-220); INR 0.93; POTASSIUM 4.4 mmol/L (3.5-5.1); PROTIME 12.5 Sec (11.9-14.9); SODIUM 139 mmol/L (135-144); TOTAL PROTEIN 7.4 g/dl (6.1-8.1)
[2017-08-15 01:53] LABS: TROPONIN-I 0.021 ng/ml (0.00-0.12)
[2017-08-15] MEDS: ONDANSETRON 4 MG INJ IV ×2 (02:00→09:45)
[2017-08-15] MEDS: morphine 2 MG INJ IV (02:01)
[2017-08-15] MEDS ORDERED: BISACODYL (EC) 5 MG TAB PO (07:30)
[2017-08-15] MEDS ORDERED: ACETAMINOPHEN 650 MG SUPP PR (07:30)
[2017-08-15] MEDS: PANTOPRAZOLE 40 MG INJ IV (07:30)
[2017-08-15] MEDS ORDERED: NACL 0.9% 3 ML SYG IV (07:30)
[2017-08-15] MEDS: POTASSIUM PHOSPHATE 40 MEQ in SOD CHLORIDE 0.9% 250 ML IVPB (11:30)
[2017-08-15] MEDS: METOCLOPRAMIDE 10 MG INJ IV ×2 (12:00→18:30)
[2017-08-15] MEDS: NA PHOSPHATE/BIPHOS 133 ML ENEMA PR (12:30)
[2017-08-15] MEDS: LORAZEPAM 2 MG INJ IV (13:27)
[2017-08-15 15:32] LABS: OCCULT BLOOD STOOL POSITIVE (NEGATIVE)
[2017-08-15] MEDS ORDERED: LIDOCAINE 2% JELLY 5 ML (16:04)
[2017-08-15] MEDS ORDERED: LIDOCAINE 2% JELLY 5 ML TOP (16:30)
[2017-08-15] MEDS ORDERED: PHENYLephrine (100 MCG/ML) 5ML SYG (16:50)
[2017-08-15] MEDS ORDERED: HEPARIN 1000 UNITS/ML 10 ML INJ CATHETER (17:00)
[2017-08-15] MEDS ORDERED: SODIUM CHLORIDE 0.9% 1L BAG IV (17:00)
[2017-08-15] MEDS ORDERED: ALBUMIN HUMAN 25% 50 ML IV (17:00)
[2017-08-15 18:53] LABS: HEMOGLOBIN 10.3 g/dl (12.0-16.0)
[2017-08-16] MEDS: METOCLOPRAMIDE 10 MG INJ IV ×4 (00:01→18:00)
[2017-08-16] MEDS: PANTOPRAZOLE 40 MG INJ IV (06:05)
[2017-08-16 06:11] LABS: ADD MAN DIFF? NO
[2017-08-16 06:24] LABS: ABNORMAL IP MESSAGE 1; BASOPHILS % 0.1 % (0.0-2.0); EOSINOPHILS % 0.3 % (0.0-7.0); HEMATOCRIT 25.7 % (37.0-47.0); LYMPHOCYTES # 0.5 10^3/ul (0.8-2.9); LYMPHOCYTES % 4.2 % (15.0-51.0); MEAN CORPUSCULAR HEMOGLOBIN 30.8 pg (29.0-33.0); MEAN PLATELET VOLUME 11.2 fl (7.4-10.4); MONOCYTE # 1.2 10^3/ul (0.3-0.9); MONOCYTES % 10.5 % (0.0-11.0); NEUTROPHIL # 9.4 10^3/ul (1.6-7.5); NEUTROPHILS % 84.4 % (39.0-77.0); PLATELET COUNT 230 10^3/UL (140-415); RED BLOOD COUNT 2.92 10^6/ul (4.20-5.40); RED CELL DISTRIBUTION WIDTH 16.3 % (11.5-14.5)
[2017-08-16 06:24] LABS: WHITE BLOOD COUNT 11.1 10^3/ul (4.8-10.8)
[2017-08-16 06:54] LABS: ALANINE AMINOTRANSFERASE 15 IU/L (13-69); ALBUMIN 3.4 g/dl (3.3-4.9); ALBUMIN/GLOBULIN RATIO 1.21; ALKALINE PHOSPHATASE 119 IU/L (42-121); ANION GAP 15 (8-16); ASPARTATE AMINO TRANSFERASE 20 IU/L (15-46); BLOOD UREA NITROGEN 30 mg/dl (7-20); CALCIUM 8.8 mg/dl (8.4-10.2); CARBON DIOXIDE 35 mmol/L (21-31); CHLORIDE 96 mmol/L (97-110); CREATININE 4.66 mg/dl (0.44-1.00); GLUCOSE 140 mg/dl (70-220); POTASSIUM 4.6 mmol/L (3.5-5.1); SODIUM 141 mmol/L (135-144); TOTAL PROTEIN 6.2 g/dl (6.1-8.1)
[2017-08-16 07:00] LABS: POSITIVE DIFF @See below
[2017-08-16] MEDS ORDERED: BISACODYL 10 MG SUPP PR (12:00)
[2017-08-16] MEDS: metroNIDAZOLE 500 MG/NS (PMX) 250 MG in EVAC CONTAINER 1 BOTTLE IVPB ×2 (14:00→21:21)
[2017-08-16] MEDS: ACETAMINOPHEN 325 MG TAB PO (16:52)
[2017-08-16] MEDS: DOCUSATE SODIUM 100 MG CAP PO (18:14)
[2017-08-16 20:09] LABS: HEPATITIS B SURFACE ANTIGEN NEGATIVE (NEGATIVE)
[2017-08-17] MEDS: METOCLOPRAMIDE 10 MG INJ IV ×5 (00:46→23:44)
[2017-08-17] MEDS: MINERAL OIL 133 ML ENEMA PR (03:38)
[2017-08-17] MEDS: metroNIDAZOLE 500 MG/NS (PMX) 250 MG in EVAC CONTAINER 1 BOTTLE IVPB ×3 (05:28→22:15)
[2017-08-17] MEDS: PANTOPRAZOLE (EC) 40 MG TAB PO ×2 (05:29→19:02)
[2017-08-17 06:32] LABS: ADD MAN DIFF? NO
[2017-08-17 06:42] LABS: WHITE BLOOD COUNT 6.8 10^3/ul (4.8-10.8)
[2017-08-17 06:42] LABS: ABNORMAL IP MESSAGE 1; BASOPHILS % 0.3 % (0.0-2.0); EOSINOPHILS # 0.2 10^3/ul (0.0-0.5); EOSINOPHILS % 2.2 % (0.0-7.0); HEMOGLOBIN 8.8 g/dl (12.0-16.0); LYMPHOCYTES # 0.6 10^3/ul (0.8-2.9); LYMPHOCYTES % 8.4 % (15.0-51.0); MEAN CORPUSCULAR HEMOGLOBIN 30.2 pg (29.0-33.0); MEAN CORPUSCULAR HGB CONC 33.8 g/dl (32.0-37.0); MEAN CORPUSCULAR VOLUME 89.3 fl (82.0-101.0); MEAN PLATELET VOLUME 11.1 fl (7.4-10.4); MONOCYTE # 0.9 10^3/ul (0.3-0.9); MONOCYTES % 13.8 % (0.0-11.0); NEUTROPHIL # 5.1 10^3/ul (1.6-7.5); NEUTROPHILS % 74.9 % (39.0-77.0); PLATELET COUNT 230 10^3/UL (140-415); RED BLOOD COUNT 2.91 10^6/ul (4.20-5.40); RED CELL DISTRIBUTION WIDTH 16.9 % (11.5-14.5)
[2017-08-17 06:56] LABS: ANION GAP 15 (8-16); BLOOD UREA NITROGEN 15 mg/dl (7-20); CALCIUM 8.1 mg/dl (8.4-10.2); CARBON DIOXIDE 32 mmol/L (21-31); CHLORIDE 98 mmol/L (97-110); CREATININE 2.46 mg/dl (0.44-1.00); GLUCOSE 131 mg/dl (70-220); POTASSIUM 4.2 mmol/L (3.5-5.1); SODIUM 141 mmol/L (135-144)
[2017-08-17 07:21] LABS: POSITIVE DIFF @See below
[2017-08-18] MEDS: PANTOPRAZOLE (EC) 40 MG TAB PO ×2 (05:30→18:27)
[2017-08-18] MEDS: METOCLOPRAMIDE 10 MG INJ IV ×4 (05:30→23:54)
[2017-08-18] MEDS: metroNIDAZOLE 500 MG/NS (PMX) 250 MG in EVAC CONTAINER 1 BOTTLE IVPB (05:30)
[2017-08-18] MEDS ORDERED: hydrALAzine 20 MG INJ IV (08:00)
[2017-08-18] MEDS ORDERED: HEPARIN 1000 UNITS/ML 10 ML INJ CATHETER (10:30)
[2017-08-18] MEDS ORDERED: ALBUMIN HUMAN 25% 50 ML IV (10:30)
[2017-08-18] MEDS ORDERED: SODIUM CHLORIDE 0.9% 1L BAG IV (10:30)
[2017-08-18] MEDS: LOSARTAN 50 MG TAB PO (11:00)
[2017-08-18] MEDS: AMLODIPINE 10 MG TAB PO (11:00)
[2017-08-18] MEDS: MULTIVIT/CA CARB/B CMPLX/FA TAB PO (11:37)
[2017-08-18] MEDS: SEVELAMER 800 MG TAB PO ×2 (12:15→18:28)
[2017-08-18 12:39] LABS: ANION GAP 14 (8-16); BLOOD UREA NITROGEN 25 mg/dl (7-20); CARBON DIOXIDE 29 mmol/L (21-31); CHLORIDE 91 mmol/L (97-110); CREATININE 3.36 mg/dl (0.44-1.00); GLUCOSE 131 mg/dl (70-220); POTASSIUM 5.1 mmol/L (3.5-5.1); SODIUM 129 mmol/L (135-144)
[2017-08-18] MEDS: Metronidazole 500 MG in NS 100 ML IVPB ×2 (14:33→21:13)
[2017-08-18] MEDS: ONDANSETRON 4 MG INJ IV (21:14)
[2017-08-19] MEDS: PANTOPRAZOLE (EC) 40 MG TAB PO ×2 (05:28→18:16)
[2017-08-19] MEDS: Metronidazole 500 MG in NS 100 ML IVPB ×3 (05:30→22:32)
[2017-08-19] MEDS: METOCLOPRAMIDE 10 MG INJ IV ×4 (06:04→23:38)
[2017-08-19] MEDS: MULTIVIT/CA CARB/B CMPLX/FA TAB PO (08:53)
[2017-08-19] MEDS: SEVELAMER 800 MG TAB PO ×3 (08:53→18:16)
[2017-08-19] MEDS: LOSARTAN 50 MG TAB PO (08:54)
[2017-08-19] MEDS: AMLODIPINE 10 MG TAB PO (08:54)
[2017-08-20] MEDS: METOCLOPRAMIDE 10 MG INJ IV ×2 (06:05→12:21)
[2017-08-20] MEDS: PANTOPRAZOLE (EC) 40 MG TAB PO (06:05)
[2017-08-20] MEDS: Metronidazole 500 MG in NS 100 ML IVPB (06:05)
[2017-08-20] MEDS: SEVELAMER 800 MG TAB PO ×2 (08:31→12:21)
[2017-08-20] MEDS: MULTIVIT/CA CARB/B CMPLX/FA TAB PO (08:31)
[2017-08-20] MEDS: AMLODIPINE 10 MG TAB PO (08:32)
[2017-08-20] MEDS: LOSARTAN 50 MG TAB PO (08:32)
== END 2017-08-20 13:45 | DRG 377 ==
LOC: E/R 23:51 → MS2 08-15 02:50
PROC: 0DB98ZX Excision of Duodenum, Via Natural or Artificial Opening Endoscopic, Diagnostic (ICD-10-PCS; principal; 2017-08-15 15:45)
PROC: 0DB68ZX Excision of Stomach, Via Natural or Artificial Opening Endoscopic, Diagnostic (ICD-10-PCS; 2017-08-15 15:45)
PROC: 5A1D70Z Performance of Urinary Filtration, Intermittent, Less than 6 Hours Per Day (ICD-10-PCS; 2017-08-15 15:45)
DX: K92.0 Hematemesis (principal); N18.6 End stage renal disease; D62 Acute posthemorrhagic anemia; I12.0 Hypertensive chronic kidney disease with stage 5 chronic kidney disease or end stage renal disease; E11.22 Type 2 diabetes mellitus with diabetic chronic kidney disease; Z99.2 Dependence on renal dialysis; I25.10 Atherosclerotic heart disease of native coronary artery without angina pectoris; E78.5 Hyperlipidemia, unspecified; K59.00 Constipation, unspecified; F41.9 Anxiety disorder, unspecified; F32.9 Major depressive disorder, single episode, unspecified; E83.39 Other disorders of phosphorus metabolism; E11.43 Type 2 diabetes mellitus with diabetic autonomic (poly)neuropathy; K31.84 Gastroparesis; K31.89 Other diseases of stomach and duodenum; K31.7 Polyp of stomach and duodenum; Z79.4 Long term (current) use of insulin; K29.70 Gastritis, unspecified, without bleeding
CPT/HCPCS: 36415; 74018; 80048; 80053; 82270; 83735; 84100; 84484; 85018; 85025; 85610; 85730; 86850; 86900; 86901; 87340; 88305; 88312; 90935; 93005; 96374; 96375; 97162; 99285-25

== ENCOUNTER 2017-09-10 21:30 | Inpatient (IN) | payer BC ==
[2017-09-10] MEDS ORDERED: morphine LIQ (10 MG/5 ML) CUP PO (23:00)
[2017-09-10] MEDS ORDERED: DEXTROSE 50% 50 ML SYRINGE IV ×2 (23:30)
[2017-09-10] MEDS ORDERED: ACETAMINOPHEN 325 MG TAB PO (23:30)
[2017-09-10] MEDS ORDERED: GLUCOSE GEL 15 GRAM TUBE BUCCAL (23:30)
[2017-09-10] MEDS ORDERED: GLUCAGON 1 MG INJ IM (23:30)
[2017-09-10] MEDS ORDERED: GLUCOSE GEL 15 GRAM TUBE PO ×2 (23:30)
[2017-09-10] MEDS ORDERED: DOCUSATE SODIUM 100 MG CAP PO (23:30)
[2017-09-10] MEDS ORDERED: traMADol 50 MG TAB PO (23:30)
[2017-09-10] MEDS ORDERED: BISACODYL 10 MG SUPP PR (23:30)
[2017-09-11] MEDS: ACCU-CHEK XX (02:00)
[2017-09-11] MEDS: DEXTROSE 5%-0.45% NACL 1,000 ML IV ×3 (05:56→23:35)
[2017-09-11] MEDS: PANTOPRAZOLE (EC) 40 MG TAB PO ×2 (05:56→17:10)
[2017-09-11 06:42] LABS: ADD MAN DIFF? NO
[2017-09-11 06:49] LABS: ABNORMAL IP MESSAGE 1; BASOPHILS % 0.6 % (0.0-2.0); EOSINOPHILS # 0.1 10^3/ul (0.0-0.5); EOSINOPHILS % 0.9 % (0.0-7.0); HEMATOCRIT 31.1 % (37.0-47.0); HEMOGLOBIN 10.2 g/dl (12.0-16.0); LYMPHOCYTES # 0.6 10^3/ul (0.8-2.9); MEAN CORPUSCULAR HEMOGLOBIN 31.7 pg (29.0-33.0); MEAN CORPUSCULAR HGB CONC 32.8 g/dl (32.0-37.0); MEAN CORPUSCULAR VOLUME 96.6 fl (82.0-101.0); MEAN PLATELET VOLUME 10.2 fl (7.4-10.4); MONOCYTE # 0.7 10^3/ul (0.3-0.9); MONOCYTES % 13.1 % (0.0-11.0); NEUTROPHIL # 3.9 10^3/ul (1.6-7.5); PLATELET COUNT 251 10^3/UL (140-415); RED BLOOD COUNT 3.22 10^6/ul (4.20-5.40); RED CELL DISTRIBUTION WIDTH 21.8 % (11.5-14.5)
[2017-09-11 06:49] LABS: WHITE BLOOD COUNT 5.3 10^3/ul (4.8-10.8)
[2017-09-11] MEDS ORDERED: EPHEDrine SULFATE 50 MG/5 ML SYG (07:00)
[2017-09-11 07:23] LABS: ALANINE AMINOTRANSFERASE 19 IU/L (13-69); ALBUMIN 2.8 g/dl (3.3-4.9); ALKALINE PHOSPHATASE 67 IU/L (42-121); ANION GAP 11 (8-16); ASPARTATE AMINO TRANSFERASE 24 IU/L (15-46); BILIRUBIN,INDIRECT 0.2 mg/dl (0-1.1); BILIRUBIN,TOTAL 0.2 mg/dl (0.2-1.3); BLOOD UREA NITROGEN 10 mg/dl (7-20); CALCIUM 8.6 mg/dl (8.4-10.2); CARBON DIOXIDE 33 mmol/L (21-31); CHLORIDE 107 mmol/L (97-110); CREATININE 2.63 mg/dl (0.44-1.00); GLUCOSE 99 mg/dl (70-220); POTASSIUM 3.3 mmol/L (3.5-5.1); SODIUM 148 mmol/L (135-144); TOTAL PROTEIN 5.6 g/dl (6.1-8.1)
[2017-09-11] MEDS: SEVELAMER 800 MG TAB PO ×4 (07:35→16:44)
[2017-09-11 07:45] LABS: POSITIVE DIFF @See below
[2017-09-11] MEDS: INSULIN ASPART [NOVOLOG] 3 ML PEN SC ×3 (08:00→17:10)
[2017-09-11] MEDS: LUBIPROSTONE 24 MCG CAP PO ×3 (08:18→21:00)
[2017-09-11] MEDS: MULTIVIT/CA CARB/B CMPLX/FA TAB PO ×2 (08:19→09:00)
[2017-09-11] MEDS: morphine 2 MG INJ IV ×2 (10:45→16:03)
[2017-09-11] MEDS: POTASSIUM CHLORIDE 100 ML IVPB (11:50)
[2017-09-11 13:03] LABS: PROTIME 13.3 Sec (11.9-14.9)
[2017-09-11] MEDS ORDERED: SOD CHLORIDE 0.9% 1,000 ML IV (16:26)
[2017-09-11] MEDS ORDERED: ALBUMIN HUMAN 25% 50 ML IV (16:30)
[2017-09-11 18:48] LABS: TROPONIN-I 0.039 ng/ml (0.000-0.120)
[2017-09-11] MEDS ORDERED: FENTAnyl 50 MCG/ML VIAL (20:18)
[2017-09-11] MEDS ORDERED: BUPIVACAINE 0.75%/DEXT (SPINAL) 2 ML INJ (20:18)
[2017-09-11] MEDS: POLYMYXIN/BACITRACIN 1L IRRIG (20:33)
[2017-09-11] MEDS ORDERED: KETAMINE (100 MG/ML) 5 ML VIAL (20:40)
[2017-09-11] MEDS ORDERED: CEFAZOLIN 1 GM INJ (20:44)
[2017-09-11] MEDS ORDERED: LIDOCAINE 2% (SDV) 5 ML INJ (21:14)
[2017-09-11 22:14] LABS: HEMATOCRIT 34.5 % (37.0-47.0); HEMOGLOBIN 11.5 g/dl (12.0-16.0)
[2017-09-11 22:37] LABS: ANION GAP 12 (8-16); BLOOD UREA NITROGEN 16 mg/dl (7-20); CALCIUM 8.9 mg/dl (8.4-10.2); CARBON DIOXIDE 32 mmol/L (21-31); CHLORIDE 108 mmol/L (97-110); CREATININE 3.42 mg/dl (0.44-1.00); GLUCOSE 128 mg/dl (70-220); POTASSIUM 3.9 mmol/L (3.5-5.1); SODIUM 148 mmol/L (135-144)
[2017-09-12] MEDS: Insulin NOVOLOG SS MILD Algorithm (NPO/TPN/ENTERAL FEEDS) SC ×6 (01:00→21:00)
[2017-09-12] MEDS ORDERED: INSULIN ASPART [NOVOLOG] 3 ML PEN SC (01:00)
[2017-09-12 01:53] LABS: TROPONIN-I 0.034 ng/ml (0.000-0.120)
[2017-09-12] MEDS: PANTOPRAZOLE (EC) 40 MG TAB PO ×2 (05:41→17:47)
[2017-09-12 06:04] LABS: ADD MAN DIFF? NO
[2017-09-12 06:10] LABS: ABNORMAL IP MESSAGE 1; BASOPHILS % 0.4 % (0.0-2.0); EOSINOPHILS % 0.4 % (0.0-7.0); HEMATOCRIT 30.7 % (37.0-47.0); HEMOGLOBIN 10.3 g/dl (12.0-16.0); LYMPHOCYTES # 0.6 10^3/ul (0.8-2.9); LYMPHOCYTES % 11.3 % (15.0-51.0); MEAN CORPUSCULAR HEMOGLOBIN 32.5 pg (29.0-33.0); MEAN CORPUSCULAR HGB CONC 33.6 g/dl (32.0-37.0); MEAN CORPUSCULAR VOLUME 96.8 fl (82.0-101.0); MEAN PLATELET VOLUME 10.7 fl (7.4-10.4); MONOCYTE # 0.7 10^3/ul (0.3-0.9); MONOCYTES % 12.8 % (0.0-11.0); NEUTROPHIL # 3.9 10^3/ul (1.6-7.5); NEUTROPHILS % 74.7 % (39.0-77.0); PLATELET COUNT 233 10^3/UL (140-415); RED BLOOD COUNT 3.17 10^6/ul (4.20-5.40); RED CELL DISTRIBUTION WIDTH 21.2 % (11.5-14.5)
[2017-09-12 06:10] LABS: WHITE BLOOD COUNT 5.2 10^3/ul (4.8-10.8)
[2017-09-12 06:14] LABS: POSITIVE DIFF @See below
[2017-09-12 06:53] LABS: ANION GAP 15 (8-16); BLOOD UREA NITROGEN 20 mg/dl (7-20); CALCIUM 8.2 mg/dl (8.4-10.2); CARBON DIOXIDE 29 mmol/L (21-31); CHLORIDE 108 mmol/L (97-110); CHOL/HDL RATIO 3.3 RATIO; CHOLESTEROL 238 mg/dl (100-200); CREATININE 3.68 mg/dl (0.44-1.00); GLUCOSE 132 mg/dl (70-220); HDL CHOLESTEROL 72 mg/dl (33-92); LDL CHOLESTEROL,CALCULATED 143 mg/dl; POTASSIUM 3.8 mmol/L (3.5-5.1); SODIUM 148 mmol/L (135-144); TRIGLYCERIDES 115 mg/dl (0-149)
[2017-09-12] MEDS: SEVELAMER 800 MG TAB PO ×3 (07:35→17:47)
[2017-09-12] MEDS: morphine 2 MG INJ IV ×2 (08:39→19:00)
[2017-09-12] MEDS: LUBIPROSTONE 24 MCG CAP PO ×2 (09:00→21:32)
[2017-09-12] MEDS: VITAMIN B COMPLEX/VIT C CAP PO (09:00)
[2017-09-12] MEDS: LOSARTAN 50 MG TAB PO (09:00)
[2017-09-12] MEDS: MULTIVIT/CA CARB/B CMPLX/FA TAB PO (09:00)
[2017-09-12 12:45] LABS: HEPATITIS B SURFACE ANTIGEN NEGATIVE (NEGATIVE)
[2017-09-12] MEDS: DEXTROSE 5%-0.45% NACL 1,000 ML IV (23:30)
[2017-09-13] MEDS: Insulin NOVOLOG SS MILD Algorithm (NPO/TPN/ENTERAL FEEDS) SC ×6 (01:00→21:00)
[2017-09-13 05:35] LABS: ADD MAN DIFF? NO
[2017-09-13 05:40] LABS: WHITE BLOOD COUNT 5.1 10^3/ul (4.8-10.8)
[2017-09-13 05:40] LABS: BASOPHILS % 0.2 % (0.0-2.0); EOSINOPHILS # 0.1 10^3/ul (0.0-0.5); EOSINOPHILS % 1.8 % (0.0-7.0); HEMATOCRIT 28.5 % (37.0-47.0); HEMOGLOBIN 9.5 g/dl (12.0-16.0); LYMPHOCYTES # 0.7 10^3/ul (0.8-2.9); LYMPHOCYTES % 12.7 % (15.0-51.0); MEAN CORPUSCULAR HEMOGLOBIN 33.1 pg (29.0-33.0); MEAN CORPUSCULAR HGB CONC 33.3 g/dl (32.0-37.0); MEAN CORPUSCULAR VOLUME 99.3 fl (82.0-101.0); MEAN PLATELET VOLUME 10.1 fl (7.4-10.4); MONOCYTE # 0.7 10^3/ul (0.3-0.9); MONOCYTES % 12.9 % (0.0-11.0); NEUTROPHIL # 3.7 10^3/ul (1.6-7.5); NEUTROPHILS % 72.2 % (39.0-77.0); PLATELET COUNT 236 10^3/UL (140-415); RED BLOOD COUNT 2.87 10^6/ul (4.20-5.40); RED CELL DISTRIBUTION WIDTH 20.6 % (11.5-14.5)
[2017-09-13] MEDS: ONDANSETRON 4 MG INJ IV (05:40)
[2017-09-13] MEDS: morphine 2 MG INJ IV ×3 (05:40→17:06)
[2017-09-13] MEDS: PANTOPRAZOLE (EC) 40 MG TAB PO ×2 (05:40→17:06)
[2017-09-13 05:54] LABS: ANION GAP 10 (8-16); BLOOD UREA NITROGEN 14 mg/dl (7-20); CALCIUM 7.9 mg/dl (8.4-10.2); CARBON DIOXIDE 34 mmol/L (21-31); CHLORIDE 104 mmol/L (97-110); CREATININE 2.46 mg/dl (0.44-1.00); GLUCOSE 104 mg/dl (70-220); SODIUM 144 mmol/L (135-144)
[2017-09-13] MEDS: SEVELAMER 800 MG TAB PO ×3 (09:10→17:06)
[2017-09-13] MEDS: DEXTROSE 5%-0.45% NACL 1,000 ML IV (09:10)
[2017-09-13] MEDS: VITAMIN B COMPLEX/VIT C CAP PO (09:10)
[2017-09-13] MEDS: MULTIVIT/CA CARB/B CMPLX/FA TAB PO (09:10)
[2017-09-13] MEDS: LOSARTAN 50 MG TAB PO (09:11)
[2017-09-13] MEDS: LUBIPROSTONE 24 MCG CAP PO ×2 (09:33→21:51)
[2017-09-14] MEDS: ACCU-CHEK XX (00:55)
[2017-09-14 05:21] LABS: ADD MAN DIFF? NO
[2017-09-14 05:30] LABS: BASOPHILS % 0.2 % (0.0-2.0); EOSINOPHILS # 0.1 10^3/ul (0.0-0.5); EOSINOPHILS % 1.4 % (0.0-7.0); HEMATOCRIT 26.7 % (37.0-47.0); HEMOGLOBIN 8.7 g/dl (12.0-16.0); LYMPHOCYTES # 0.7 10^3/ul (0.8-2.9); LYMPHOCYTES % 13.9 % (15.0-51.0); MEAN CORPUSCULAR HEMOGLOBIN 32.3 pg (29.0-33.0); MEAN CORPUSCULAR HGB CONC 32.6 g/dl (32.0-37.0); MEAN CORPUSCULAR VOLUME 99.3 fl (82.0-101.0); MEAN PLATELET VOLUME 10.3 fl (7.4-10.4); MONOCYTE # 0.6 10^3/ul (0.3-0.9); MONOCYTES % 11.2 % (0.0-11.0); NEUTROPHIL # 3.6 10^3/ul (1.6-7.5); NEUTROPHILS % 73.1 % (39.0-77.0); PLATELET COUNT 230 10^3/UL (140-415); RED BLOOD COUNT 2.69 10^6/ul (4.20-5.40); RED CELL DISTRIBUTION WIDTH 19.6 % (11.5-14.5)
[2017-09-14 05:58] LABS: ANION GAP 7 (8-16); BLOOD UREA NITROGEN 22 mg/dl (7-20); CALCIUM 7.9 mg/dl (8.4-10.2); CARBON DIOXIDE 33 mmol/L (21-31); CHLORIDE 105 mmol/L (97-110); CREATININE 3.34 mg/dl (0.44-1.00); GLUCOSE 116 mg/dl (70-220); POTASSIUM 3.9 mmol/L (3.5-5.1); SODIUM 141 mmol/L (135-144)
[2017-09-14] MEDS: PANTOPRAZOLE (EC) 40 MG TAB PO ×2 (06:03→17:25)
[2017-09-14] MEDS: INSULIN ASPART [NOVOLOG] 3 ML PEN SC ×4 (08:00→21:00)
[2017-09-14] MEDS: LOSARTAN 50 MG TAB PO (09:00)
[2017-09-14] MEDS: MULTIVIT/CA CARB/B CMPLX/FA TAB PO (09:25)
[2017-09-14] MEDS: VITAMIN B COMPLEX/VIT C CAP PO (09:26)
[2017-09-14] MEDS: SEVELAMER 800 MG TAB PO (09:26)
[2017-09-14] MEDS: LUBIPROSTONE 24 MCG CAP PO ×2 (09:26→21:00)
[2017-09-14] MEDS: HYDROCODONE/APAP (5/325) TAB PO (10:27)
[2017-09-14] MEDS: LORAZEPAM 0.5 MG TAB PO ×2 (11:56→12:04)
[2017-09-14] MEDS: morphine 2 MG INJ IV (12:15)
[2017-09-14] MEDS: DEXTROSE 5%-0.45% NACL 1,000 ML IV (12:30)
[2017-09-14] MEDS: SOD CHLORIDE 0.9% 250 ML IV (13:28)
[2017-09-14] MEDS: SEVELAMER CARBONATE 0.8 GM PKT PO (17:25)
[2017-09-14] MEDS: LIDOCAINE 2% VISC 15 ML CUP PO (22:35)
[2017-09-15] MEDS: ACCU-CHEK XX (01:19)
[2017-09-15] MEDS: morphine LIQ (10 MG/5 ML) CUP PO ×3 (03:36→17:57)
[2017-09-15 05:43] LABS: ADD MAN DIFF? NO
[2017-09-15 05:47] LABS: WHITE BLOOD COUNT 6.4 10^3/ul (4.8-10.8)
[2017-09-15 05:47] LABS: BASOPHILS % 0.3 % (0.0-2.0); EOSINOPHILS # 0.1 10^3/ul (0.0-0.5); EOSINOPHILS % 1.1 % (0.0-7.0); HEMATOCRIT 30.6 % (37.0-47.0); HEMOGLOBIN 10.1 g/dl (12.0-16.0); LYMPHOCYTES # 1.1 10^3/ul (0.8-2.9); LYMPHOCYTES % 16.9 % (15.0-51.0); MEAN CORPUSCULAR HEMOGLOBIN 32.4 pg (29.0-33.0); MEAN CORPUSCULAR VOLUME 98.1 fl (82.0-101.0); MEAN PLATELET VOLUME 10.3 fl (7.4-10.4); MONOCYTE # 0.5 10^3/ul (0.3-0.9); MONOCYTES % 7.1 % (0.0-11.0); NEUTROPHIL # 4.7 10^3/ul (1.6-7.5); NEUTROPHILS % 74.4 % (39.0-77.0); PLATELET COUNT 248 10^3/UL (140-415); RED BLOOD COUNT 3.12 10^6/ul (4.20-5.40); RED CELL DISTRIBUTION WIDTH 18.6 % (11.5-14.5)
[2017-09-15] MEDS: LANSOPRAZOLE 30 MG CAP PO ×2 (06:08→17:41)
[2017-09-15 06:29] LABS: ANION GAP 14 (8-16); BLOOD UREA NITROGEN 30 mg/dl (7-20); CALCIUM 8.6 mg/dl (8.4-10.2); CARBON DIOXIDE 27 mmol/L (21-31); CHLORIDE 104 mmol/L (97-110); GLUCOSE 72 mg/dl (70-220); SODIUM 140 mmol/L (135-144)
[2017-09-15] MEDS: SEVELAMER CARBONATE 0.8 GM PKT PO ×3 (07:35→17:35)
[2017-09-15] MEDS: INSULIN ASPART [NOVOLOG] 3 ML PEN SC ×4 (07:55→21:00)
[2017-09-15] MEDS: LOSARTAN 25 MG TAB PO (09:00)
[2017-09-15] MEDS: MULTIVIT/CA CARB/B CMPLX/FA TAB PO (09:00)
[2017-09-15] MEDS: LUBIPROSTONE 24 MCG CAP PO ×2 (09:00→21:00)
[2017-09-15] MEDS: VITAMIN B COMPLEX/VIT C CAP PO (09:00)
[2017-09-15] MEDS: DEXTROSE 5%-0.45% NACL 1,000 ML IV ×2 (17:51→23:30)
[2017-09-16] MEDS: ACCU-CHEK XX (03:20)
[2017-09-16] MEDS: LANSOPRAZOLE 30 MG CAP PO ×2 (05:20→17:32)
[2017-09-16 05:39] LABS: ABNORMAL IP MESSAGE 1; ADD MAN DIFF? NO; BASOPHILS % 0.4 % (0.0-2.0); EOSINOPHILS # 0.1 10^3/ul (0.0-0.5); EOSINOPHILS % 1.6 % (0.0-7.0); HEMATOCRIT 23.8 % (37.0-47.0); HEMOGLOBIN 8.2 g/dl (12.0-16.0); LYMPHOCYTES # 0.5 10^3/ul (0.8-2.9); MEAN CORPUSCULAR HEMOGLOBIN 32.9 pg (29.0-33.0); MEAN CORPUSCULAR HGB CONC 34.5 g/dl (32.0-37.0); MEAN CORPUSCULAR VOLUME 95.6 fl (82.0-101.0); MEAN PLATELET VOLUME 9.5 fl (7.4-10.4); MONOCYTE # 0.4 10^3/ul (0.3-0.9); MONOCYTES % 8.4 % (0.0-11.0); NEUTROPHIL # 3.9 10^3/ul (1.6-7.5); NEUTROPHILS % 78.4 % (39.0-77.0); PLATELET COUNT 246 10^3/UL (140-415); RED BLOOD COUNT 2.49 10^6/ul (4.20-5.40); RED CELL DISTRIBUTION WIDTH 17.4 % (11.5-14.5)
[2017-09-16 05:39] LABS: WHITE BLOOD COUNT 4.9 10^3/ul (4.8-10.8)
[2017-09-16 05:45] LABS: POSITIVE DIFF @See below
[2017-09-16 06:11] LABS: ANION GAP 8 (8-16); BLOOD UREA NITROGEN 16 mg/dl (7-20); CALCIUM 7.6 mg/dl (8.4-10.2); CARBON DIOXIDE 33 mmol/L (21-31); CHLORIDE 102 mmol/L (97-110); CREATININE 2.51 mg/dl (0.44-1.00); GLUCOSE 110 mg/dl (70-220); POTASSIUM 3.6 mmol/L (3.5-5.1); SODIUM 139 mmol/L (135-144)
[2017-09-16] MEDS: SEVELAMER CARBONATE 0.8 GM PKT PO ×3 (07:35→17:32)
[2017-09-16] MEDS: INSULIN ASPART [NOVOLOG] 3 ML PEN SC ×4 (08:00→21:00)
[2017-09-16] MEDS: LOSARTAN 25 MG TAB PO (09:00)
[2017-09-16] MEDS: VITAMIN B COMPLEX/VIT C CAP PO (09:00)
[2017-09-16] MEDS: MULTIVIT/CA CARB/B CMPLX/FA TAB PO (09:00)
[2017-09-16] MEDS: LUBIPROSTONE 24 MCG CAP PO ×2 (09:00→21:00)
[2017-09-16] MEDS: morphine 2 MG INJ IV ×2 (09:23→23:19)
[2017-09-16] MEDS ORDERED: LORAZEPAM 0.5 MG TAB PO (17:00)
[2017-09-16 17:29] LABS: HEMATOCRIT 26.3 % (37.0-47.0); HEMOGLOBIN 8.8 g/dl (12.0-16.0)
[2017-09-16] MEDS ORDERED: ALBUMIN HUMAN 25% 50 ML IV (17:30)
[2017-09-16] MEDS: DEXTROSE 5%-0.45% NACL 1,000 ML IV (21:41)
[2017-09-17] MEDS: ACCU-CHEK XX ×2 (03:03→23:44)
[2017-09-17] MEDS: morphine 2 MG INJ IV (03:31)
[2017-09-17] MEDS: LANSOPRAZOLE 30 MG CAP PO ×2 (05:30→17:44)
[2017-09-17 07:04] LABS: ADD MAN DIFF? NO
[2017-09-17 07:07] LABS: WHITE BLOOD COUNT 6.1 10^3/ul (4.8-10.8)
[2017-09-17 07:07] LABS: BASOPHILS % 0.5 % (0.0-2.0); EOSINOPHILS # 0.1 10^3/ul (0.0-0.5); EOSINOPHILS % 1.6 % (0.0-7.0); HEMATOCRIT 25.9 % (37.0-47.0); HEMOGLOBIN 8.5 g/dl (12.0-16.0); LYMPHOCYTES # 0.9 10^3/ul (0.8-2.9); LYMPHOCYTES % 15.2 % (15.0-51.0); MEAN CORPUSCULAR HEMOGLOBIN 31.7 pg (29.0-33.0); MEAN CORPUSCULAR HGB CONC 32.8 g/dl (32.0-37.0); MEAN CORPUSCULAR VOLUME 96.6 fl (82.0-101.0); MEAN PLATELET VOLUME 10.4 fl (7.4-10.4); MONOCYTE # 0.8 10^3/ul (0.3-0.9); MONOCYTES % 12.5 % (0.0-11.0); NEUTROPHIL # 4.2 10^3/ul (1.6-7.5); NEUTROPHILS % 69.5 % (39.0-77.0); PLATELET COUNT 282 10^3/UL (140-415); RED BLOOD COUNT 2.68 10^6/ul (4.20-5.40); RED CELL DISTRIBUTION WIDTH 17.2 % (11.5-14.5)
[2017-09-17 07:31] LABS: ANION GAP 10 (8-16); BLOOD UREA NITROGEN 22 mg/dl (7-20); CALCIUM 7.6 mg/dl (8.4-10.2); CARBON DIOXIDE 31 mmol/L (21-31); CHLORIDE 102 mmol/L (97-110); CREATININE 3.33 mg/dl (0.44-1.00); GLUCOSE 90 mg/dl (70-220); POTASSIUM 3.8 mmol/L (3.5-5.1); SODIUM 139 mmol/L (135-144)
[2017-09-17] MEDS: SEVELAMER CARBONATE 0.8 GM PKT PO ×3 (07:35→17:44)
[2017-09-17] MEDS: INSULIN ASPART [NOVOLOG] 3 ML PEN SC ×4 (08:00→21:00)
[2017-09-17] MEDS: LOSARTAN 25 MG TAB PO (09:00)
[2017-09-17] MEDS: LORAZEPAM 0.5 MG TAB PO (09:34)
[2017-09-17] MEDS: VITAMIN B COMPLEX/VIT C CAP PO (09:35)
[2017-09-17] MEDS: MULTIVIT/CA CARB/B CMPLX/FA TAB PO (09:35)
[2017-09-17] MEDS: LUBIPROSTONE 24 MCG CAP PO ×2 (09:35→21:00)
[2017-09-17] MEDS: HYDROCODONE/APAP (5/325) TAB PO (19:45)
[2017-09-17] MEDS ORDERED: KETOROLAC 15 MG INJ (20:31)
[2017-09-17] MEDS: MEGESTROL (40 MG/ML) 10ML CUP PO (21:00)
[2017-09-17] MEDS: KETOROLAC 15 MG INJ IM (21:02)
[2017-09-18] MEDS: LANSOPRAZOLE 30 MG CAP PO ×2 (05:18→17:38)
[2017-09-18] MEDS: HYDROCODONE/APAP (5/325) TAB PO ×2 (06:00→21:44)
[2017-09-18 06:07] LABS: ADD MAN DIFF? NO
[2017-09-18 06:09] LABS: BASOPHILS % 0.4 % (0.0-2.0); EOSINOPHILS # 0.1 10^3/ul (0.0-0.5); HEMATOCRIT 27.9 % (37.0-47.0); HEMOGLOBIN 9.1 g/dl (12.0-16.0); LYMPHOCYTES % 20.3 % (15.0-51.0); MEAN CORPUSCULAR HEMOGLOBIN 32.2 pg (29.0-33.0); MEAN CORPUSCULAR HGB CONC 32.6 g/dl (32.0-37.0); MEAN CORPUSCULAR VOLUME 98.6 fl (82.0-101.0); MEAN PLATELET VOLUME 10.3 fl (7.4-10.4); MONOCYTE # 0.7 10^3/ul (0.3-0.9); MONOCYTES % 13.5 % (0.0-11.0); NEUTROPHIL # 3.2 10^3/ul (1.6-7.5); NEUTROPHILS % 64.2 % (39.0-77.0); PLATELET COUNT 361 10^3/UL (140-415); RED BLOOD COUNT 2.83 10^6/ul (4.20-5.40)
[2017-09-18 06:26] LABS: ANION GAP 18 (8-16); BLOOD UREA NITROGEN 14 mg/dl (7-20); CALCIUM 8.3 mg/dl (8.4-10.2); CARBON DIOXIDE 24 mmol/L (21-31); CHLORIDE 105 mmol/L (97-110); CREATININE 2.48 mg/dl (0.44-1.00); GLUCOSE 79 mg/dl (70-220); POTASSIUM 4.7 mmol/L (3.5-5.1); SODIUM 142 mmol/L (135-144)
[2017-09-18] MEDS: INSULIN ASPART [NOVOLOG] 3 ML PEN SC ×4 (07:58→21:28)
[2017-09-18] MEDS: MULTIVIT/CA CARB/B CMPLX/FA TAB PO (08:10)
[2017-09-18] MEDS: VITAMIN B COMPLEX/VIT C CAP PO (08:10)
[2017-09-18] MEDS: LUBIPROSTONE 24 MCG CAP PO ×2 (08:10→21:00)
[2017-09-18] MEDS: SEVELAMER CARBONATE 0.8 GM PKT PO ×3 (08:10→17:38)
[2017-09-18] MEDS: MEGESTROL (40 MG/ML) 10ML CUP PO ×2 (08:10→21:00)
[2017-09-18] MEDS ORDERED: SODIUM CHLORIDE 0.9% 1L BAG IV (15:30)
[2017-09-18] MEDS ORDERED: ALBUMIN HUMAN 25% 50 ML IV (15:30)
[2017-09-19] MEDS: ACCU-CHEK XX (02:00)
[2017-09-19] MEDS: LANSOPRAZOLE 30 MG CAP PO ×2 (06:35→17:37)
[2017-09-19] MEDS: SEVELAMER CARBONATE 0.8 GM PKT PO ×4 (07:35→17:35)
[2017-09-19] MEDS: INSULIN ASPART [NOVOLOG] 3 ML PEN SC ×4 (07:57→20:48)
[2017-09-19] MEDS: LUBIPROSTONE 24 MCG CAP PO ×3 (08:19→20:51)
[2017-09-19] MEDS: VITAMIN B COMPLEX/VIT C CAP PO ×2 (08:19→09:00)
[2017-09-19] MEDS: MULTIVIT/CA CARB/B CMPLX/FA TAB PO ×2 (08:19→09:00)
[2017-09-19] MEDS: MEGESTROL (40 MG/ML) 10ML CUP PO ×3 (08:19→20:51)
[2017-09-19] MEDS: ENOXAPARIN 30 MG/0.3 ML SYG SC (08:20)
[2017-09-19] MEDS: DEXTROSE 5%-0.9% NACL 1,000 ML IV (11:46)
[2017-09-19] MEDS: METHYLPHENIDATE 5 MG TAB PO (13:00)
[2017-09-19] MEDS: morphine LIQ (10 MG/5 ML) CUP PO (21:42)
[2017-09-20] MEDS: ACCU-CHEK XX (01:34)
[2017-09-20] MEDS: LANSOPRAZOLE 30 MG CAP PO ×2 (05:44→17:44)
[2017-09-20 06:33] LABS: AMMONIA < 9 umol/l (9-30)
[2017-09-20 07:06] LABS: ANION GAP 14 (8-16); BLOOD UREA NITROGEN 14 mg/dl (7-20); CALCIUM 8.4 mg/dl (8.4-10.2); CARBON DIOXIDE 26 mmol/L (21-31); CHLORIDE 108 mmol/L (97-110); CREATININE 2.67 mg/dl (0.44-1.00); GLUCOSE 101 mg/dl (70-220); POTASSIUM 4.4 mmol/L (3.5-5.1); SODIUM 144 mmol/L (135-144)
[2017-09-20] MEDS: SEVELAMER CARBONATE 0.8 GM PKT PO ×3 (07:35→17:35)
[2017-09-20] MEDS: INSULIN ASPART [NOVOLOG] 3 ML PEN SC ×4 (08:00→21:00)
[2017-09-20] MEDS: LUBIPROSTONE 24 MCG CAP PO ×2 (08:30→21:00)
[2017-09-20] MEDS: MULTIVIT/CA CARB/B CMPLX/FA TAB PO (08:31)
[2017-09-20] MEDS: ENOXAPARIN 30 MG/0.3 ML SYG SC (08:31)
[2017-09-20] MEDS: VITAMIN B COMPLEX/VIT C CAP PO (08:31)
[2017-09-20] MEDS: MEGESTROL (40 MG/ML) 10ML CUP PO ×2 (08:31→21:00)
[2017-09-20] MEDS: DEXTROSE 5%-0.9% NACL 1,000 ML IV ×2 (12:00→20:54)
[2017-09-20] MEDS: morphine LIQ (10 MG/5 ML) CUP PO (12:14)
[2017-09-21] MEDS: ACCU-CHEK XX (02:00)
[2017-09-21] MEDS: LANSOPRAZOLE 30 MG CAP PO ×2 (06:00→17:22)
[2017-09-21] MEDS: morphine 2 MG INJ IV (06:54)
[2017-09-21] MEDS: SEVELAMER CARBONATE 0.8 GM PKT PO ×3 (07:35→17:22)
[2017-09-21] MEDS: INSULIN ASPART [NOVOLOG] 3 ML PEN SC ×4 (08:00→20:41)
[2017-09-21] MEDS: LUBIPROSTONE 24 MCG CAP PO ×2 (08:16→21:00)
[2017-09-21] MEDS: VITAMIN B COMPLEX/VIT C CAP PO (08:16)
[2017-09-21] MEDS: MEGESTROL (40 MG/ML) 10ML CUP PO ×2 (08:16→21:00)
[2017-09-21] MEDS: ENOXAPARIN 30 MG/0.3 ML SYG SC (08:16)
[2017-09-21] MEDS: MULTIVIT/CA CARB/B CMPLX/FA TAB PO (08:16)
[2017-09-22] MEDS: ACCU-CHEK XX (02:00)
[2017-09-22] MEDS: LANSOPRAZOLE 30 MG CAP PO ×2 (06:00→17:04)
[2017-09-22 06:20] LABS: ADD MAN DIFF? NO
[2017-09-22 06:28] LABS: WHITE BLOOD COUNT 5.3 10^3/ul (4.8-10.8)
[2017-09-22 06:28] LABS: BASOPHILS % 0.6 % (0.0-2.0); EOSINOPHILS # 0.2 10^3/ul (0.0-0.5); EOSINOPHILS % 3.4 % (0.0-7.0); HEMATOCRIT 22.1 % (37.0-47.0); HEMOGLOBIN 7.4 g/dl (12.0-16.0); LYMPHOCYTES # 1.2 10^3/ul (0.8-2.9); LYMPHOCYTES % 21.8 % (15.0-51.0); MEAN CORPUSCULAR HEMOGLOBIN 32.5 pg (29.0-33.0); MEAN CORPUSCULAR HGB CONC 33.5 g/dl (32.0-37.0); MEAN CORPUSCULAR VOLUME 96.9 fl (82.0-101.0); MEAN PLATELET VOLUME 10.3 fl (7.4-10.4); MONOCYTE # 0.4 10^3/ul (0.3-0.9); MONOCYTES % 7.3 % (0.0-11.0); NEUTROPHIL # 3.6 10^3/ul (1.6-7.5); NEUTROPHILS % 66.7 % (39.0-77.0); PLATELET COUNT 423 10^3/UL (140-415); RED BLOOD COUNT 2.28 10^6/ul (4.20-5.40); RED CELL DISTRIBUTION WIDTH 16.4 % (11.5-14.5)
[2017-09-22 07:29] LABS: ALANINE AMINOTRANSFERASE 15 IU/L (13-69); ALBUMIN 2.1 g/dl (3.3-4.9); ALKALINE PHOSPHATASE 92 IU/L (42-121); ANION GAP 10 (8-16); ASPARTATE AMINO TRANSFERASE 17 IU/L (15-46); BLOOD UREA NITROGEN 27 mg/dl (7-20); CALCIUM 7.9 mg/dl (8.4-10.2); CARBON DIOXIDE 31 mmol/L (21-31); CHLORIDE 108 mmol/L (97-110); CREATININE 4.31 mg/dl (0.44-1.00); GLUCOSE 102 mg/dl (70-220); POTASSIUM 4.5 mmol/L (3.5-5.1); SODIUM 144 mmol/L (135-144); TOTAL PROTEIN 4.7 g/dl (6.1-8.1)
[2017-09-22] MEDS: SEVELAMER CARBONATE 0.8 GM PKT PO ×3 (07:35→17:04)
[2017-09-22] MEDS: INSULIN ASPART [NOVOLOG] 3 ML PEN SC ×4 (08:00→20:59)
[2017-09-22] MEDS: LUBIPROSTONE 24 MCG CAP PO ×2 (08:12→21:00)
[2017-09-22] MEDS: VITAMIN B COMPLEX/VIT C CAP PO (08:12)
[2017-09-22] MEDS: MEGESTROL (40 MG/ML) 10ML CUP PO ×2 (08:12→21:00)
[2017-09-22] MEDS: ENOXAPARIN 30 MG/0.3 ML SYG SC (08:13)
[2017-09-22] MEDS: MULTIVIT/CA CARB/B CMPLX/FA TAB PO (08:13)
[2017-09-22] MEDS: morphine 2 MG INJ IV ×2 (09:29→16:57)
[2017-09-22] MEDS: DEXTROSE 5%-0.9% NACL 1,000 ML IV (11:32)
[2017-09-23] MEDS: ACCU-CHEK XX (02:00)
[2017-09-23 05:20] LABS: ADD MAN DIFF? NO
[2017-09-23 05:23] LABS: WHITE BLOOD COUNT 4.9 10^3/ul (4.8-10.8)
[2017-09-23 05:23] LABS: BASOPHILS % 0.6 % (0.0-2.0); EOSINOPHILS # 0.1 10^3/ul (0.0-0.5); EOSINOPHILS % 1.8 % (0.0-7.0); HEMATOCRIT 26.4 % (37.0-47.0); HEMOGLOBIN 8.7 g/dl (12.0-16.0); LYMPHOCYTES # 1.3 10^3/ul (0.8-2.9); LYMPHOCYTES % 25.4 % (15.0-51.0); MEAN CORPUSCULAR HEMOGLOBIN 32.3 pg (29.0-33.0); MEAN CORPUSCULAR VOLUME 98.1 fl (82.0-101.0); MEAN PLATELET VOLUME 10.8 fl (7.4-10.4); MONOCYTE # 0.4 10^3/ul (0.3-0.9); MONOCYTES % 8.5 % (0.0-11.0); NEUTROPHIL # 3.1 10^3/ul (1.6-7.5); NEUTROPHILS % 63.5 % (39.0-77.0); PLATELET COUNT 410 10^3/UL (140-415); RED BLOOD COUNT 2.69 10^6/ul (4.20-5.40); RED CELL DISTRIBUTION WIDTH 16.2 % (11.5-14.5)
[2017-09-23] MEDS: LANSOPRAZOLE 30 MG CAP PO ×2 (06:00→17:27)
[2017-09-23] MEDS: SEVELAMER CARBONATE 0.8 GM PKT PO ×3 (07:35→17:27)
[2017-09-23] MEDS: INSULIN ASPART [NOVOLOG] 3 ML PEN SC ×4 (08:00→21:00)
[2017-09-23] MEDS: MULTIVIT/CA CARB/B CMPLX/FA TAB PO (08:57)
[2017-09-23] MEDS: ENOXAPARIN 30 MG/0.3 ML SYG SC (08:57)
[2017-09-23] MEDS: MEGESTROL (40 MG/ML) 10ML CUP PO ×2 (08:57→21:00)
[2017-09-23] MEDS: LUBIPROSTONE 24 MCG CAP PO ×2 (08:57→21:00)
[2017-09-23] MEDS: VITAMIN B COMPLEX/VIT C CAP PO (08:58)
[2017-09-23] MEDS: DEXTROSE 5%-0.9% NACL 1,000 ML IV (12:02)
[2017-09-23] MEDS: AMLODIPINE 10 MG TAB PO (15:39)
[2017-09-23] MEDS ORDERED: CEFAZOLIN 1 GM/50 ML (PMX) 50 ML IVPB (17:30)
[2017-09-24] MEDS: ACCU-CHEK XX (02:00)
[2017-09-24] MEDS: LANSOPRAZOLE 30 MG CAP PO (05:16)
[2017-09-24] MEDS: SEVELAMER CARBONATE 0.8 GM PKT PO ×2 (07:35→11:30)
[2017-09-24 07:36] LABS: ANION GAP 13 (8-16); BLOOD UREA NITROGEN 21 mg/dl (7-20); CALCIUM 9.1 mg/dl (8.4-10.2); CARBON DIOXIDE 30 mmol/L (21-31); CHLORIDE 109 mmol/L (97-110); CREATININE 3.61 mg/dl (0.44-1.00); GLUCOSE 99 mg/dl (70-220); POTASSIUM 4.6 mmol/L (3.5-5.1); SODIUM 147 mmol/L (135-144)
[2017-09-24] MEDS: ENOXAPARIN 30 MG/0.3 ML SYG SC (09:00)
[2017-09-24] MEDS: MULTIVIT/CA CARB/B CMPLX/FA TAB PO (09:00)
[2017-09-24] MEDS: VITAMIN B COMPLEX/VIT C CAP PO (09:00)
[2017-09-24] MEDS: AMLODIPINE 10 MG TAB PO (09:00)
[2017-09-24] MEDS: MEGESTROL (40 MG/ML) 10ML CUP PO (09:00)
[2017-09-24] MEDS: LOSARTAN 50 MG TAB PO (09:00)
[2017-09-24] MEDS: INSULIN ASPART [NOVOLOG] 3 ML PEN SC ×4 (09:00→21:00)
[2017-09-24] MEDS: LUBIPROSTONE 24 MCG CAP PO (09:00)
[2017-09-24] MEDS: PROPOFOL 20 ML (09:22)
[2017-09-24] MEDS: DEXTROSE 5%-0.9% NACL 1,000 ML IV ×2 (12:00→18:37)
[2017-09-24] MEDS ORDERED: MEGESTROL (40 MG/ML) 10ML CUP GTB (18:21)
[2017-09-24] MEDS ORDERED: LANSOPRAZOLE 30 MG CAP GTB (18:30)
[2017-09-24] MEDS ORDERED: LORAZEPAM 0.5 MG TAB GTB (18:30)
[2017-09-24] MEDS ORDERED: HYDROCODONE/APAP (5/325) TAB GTB (18:30)
[2017-09-24] MEDS ORDERED: ACETAMINOPHEN 650MG/20.3ML CUP GTB (19:00)
[2017-09-24] MEDS ORDERED: SEVELAMER CARBONATE 0.8 GM PKT PO (21:00)
[2017-09-24] MEDS: SEVELAMER CARBONATE 0.8 GM PKT GTB (21:00)
[2017-09-24] MEDS: LORAZEPAM 0.5 MG TAB GTB (21:15)
[2017-09-24] MEDS: MEGESTROL (40 MG/ML) 10ML CUP GTB (21:15)
[2017-09-24] MEDS ORDERED: traMADol 50 MG TAB GTB (23:30)
[2017-09-25] MEDS: INSULIN ASPART [NOVOLOG] 3 ML PEN SC ×6 (01:00→20:59)
[2017-09-25] MEDS: ACCU-CHEK XX (02:00)
[2017-09-25 06:25] LABS: ANION GAP 13 (8-16); BLOOD UREA NITROGEN 21 mg/dl (7-20); CALCIUM 8.2 mg/dl (8.4-10.2); CARBON DIOXIDE 27 mmol/L (21-31); CHLORIDE 114 mmol/L (97-110); CREATININE 4.22 mg/dl (0.44-1.00); GLUCOSE 301 mg/dl (70-220); POTASSIUM 3.8 mmol/L (3.5-5.1); SODIUM 150 mmol/L (135-144)
[2017-09-25] MEDS: SEVELAMER CARBONATE 0.8 GM PKT GTB ×3 (07:35→17:35)
[2017-09-25] MEDS: AMLODIPINE 10 MG TAB GTB (09:11)
[2017-09-25] MEDS: MULTIVIT/CA CARB/B CMPLX/FA TAB GTB (09:12)
[2017-09-25] MEDS: POLYETHYLENE GLYCOL 17 GM PACKET GTB (09:13)
[2017-09-25] MEDS: MEGESTROL (40 MG/ML) 10ML CUP GTB ×2 (09:15→20:45)
[2017-09-25] MEDS: VITAMIN B COMPLEX/VIT C CAP GTB (09:15)
[2017-09-25] MEDS: ENOXAPARIN 30 MG/0.3 ML SYG SC (09:16)
[2017-09-25] MEDS: DEXTROSE 5% 1,000 ML IV (09:16)
[2017-09-25] MEDS: hydrALAzine 20 MG INJ IV (09:22)
[2017-09-25] MEDS: LOSARTAN 50 MG TAB GTB ×2 (09:23→20:45)
[2017-09-25] MEDS ORDERED: ALBUMIN HUMAN 25% 100 ML IV (10:00)
[2017-09-25] MEDS ORDERED: SODIUM CHLORIDE 0.9% 1L BAG IV (10:00)
[2017-09-25 11:31] LABS: ANION GAP 14 (8-16); BLOOD UREA NITROGEN 23 mg/dl (7-20); CALCIUM 8.5 mg/dl (8.4-10.2); CARBON DIOXIDE 25 mmol/L (21-31); CHLORIDE 112 mmol/L (97-110); CREATININE 4.45 mg/dl (0.44-1.00); GLUCOSE 118 mg/dl (70-220); POTASSIUM 4.1 mmol/L (3.5-5.1); SODIUM 147 mmol/L (135-144)
[2017-09-25] MEDS: LORAZEPAM 0.5 MG TAB GTB ×2 (14:56→20:44)
[2017-09-25] MEDS: morphine LIQ (10 MG/5 ML) CUP GTB (21:55)
[2017-09-25] MEDS: LANSOPRAZOLE 30 MG CAP GTB (21:56)
[2017-09-26] MEDS: INSULIN ASPART [NOVOLOG] 3 ML PEN SC ×4 (01:00→17:44)
[2017-09-26] MEDS: ACCU-CHEK XX (01:35)
[2017-09-26] MEDS: morphine LIQ (10 MG/5 ML) CUP GTB (04:16)
[2017-09-26] MEDS: LANSOPRAZOLE 30 MG CAP GTB ×2 (05:33→17:43)
[2017-09-26 06:29] LABS: MAGNESIUM 1.9 mg/dl (1.7-2.5)
[2017-09-26 06:29] LABS: PHOSPHORUS 2.2 mg/dl (2.5-4.9)
[2017-09-26 06:49] LABS: ANION GAP 10 (8-16); BLOOD UREA NITROGEN 11 mg/dl (7-20); CALCIUM 8.5 mg/dl (8.4-10.2); CARBON DIOXIDE 32 mmol/L (21-31); CHLORIDE 107 mmol/L (97-110); CREATININE 2.23 mg/dl (0.44-1.00); GLUCOSE 129 mg/dl (70-220); POTASSIUM 4.5 mmol/L (3.5-5.1); SODIUM 144 mmol/L (135-144)
[2017-09-26] MEDS: MULTIVIT/CA CARB/B CMPLX/FA TAB GTB (08:39)
[2017-09-26] MEDS: SEVELAMER CARBONATE 0.8 GM PKT GTB (08:39)
[2017-09-26] MEDS: VITAMIN B COMPLEX/VIT C CAP GTB (08:39)
[2017-09-26] MEDS: MEGESTROL (40 MG/ML) 10ML CUP GTB ×2 (08:39→21:03)
[2017-09-26] MEDS: POLYETHYLENE GLYCOL 17 GM PACKET GTB (08:39)
[2017-09-26] MEDS: LOSARTAN 50 MG TAB GTB ×2 (08:40→21:03)
[2017-09-26] MEDS: AMLODIPINE 10 MG TAB GTB (08:40)
[2017-09-26] MEDS: ENOXAPARIN 30 MG/0.3 ML SYG SC (08:46)
[2017-09-26] MEDS: METOCLOPRAMIDE 10 MG INJ IV ×2 (12:34→17:42)
[2017-09-26] MEDS ORDERED: SOD CHLORIDE 0.9% 1,000 ML IV (19:35)
[2017-09-26] MEDS ORDERED: ALBUMIN HUMAN 25% 50 ML IV (20:00)
[2017-09-27] MEDS: METOCLOPRAMIDE 10 MG INJ IV ×5 (00:10→23:39)
[2017-09-27] MEDS: INSULIN ASPART [NOVOLOG] 3 ML PEN SC ×5 (00:17→23:41)
[2017-09-27] MEDS: ACCU-CHEK XX (02:00)
[2017-09-27] MEDS: LANSOPRAZOLE 30 MG CAP GTB ×2 (05:45→17:04)
[2017-09-27] MEDS: MEGESTROL (40 MG/ML) 10ML CUP GTB ×2 (09:00→09:59)
[2017-09-27] MEDS: LOSARTAN 50 MG TAB GTB (09:00)
[2017-09-27] MEDS: AMLODIPINE 10 MG TAB GTB (09:00)
[2017-09-27] MEDS: POLYETHYLENE GLYCOL 17 GM PACKET GTB (09:00)
[2017-09-27] MEDS: VITAMIN B COMPLEX/VIT C CAP GTB (09:59)
[2017-09-27] MEDS: ENOXAPARIN 30 MG/0.3 ML SYG SC (09:59)
[2017-09-27] MEDS: MULTIVIT/CA CARB/B CMPLX/FA TAB GTB (09:59)
[2017-09-27] MEDS: morphine LIQ (10 MG/5 ML) CUP GTB (23:39)
[2017-09-28] MEDS: ACCU-CHEK XX (01:36)
[2017-09-28 05:28] LABS: ADD MAN DIFF? NO
[2017-09-28] MEDS: METOCLOPRAMIDE 10 MG INJ IV ×4 (05:32→23:39)
[2017-09-28] MEDS: LANSOPRAZOLE 30 MG CAP GTB ×2 (05:32→17:33)
[2017-09-28 05:40] LABS: WHITE BLOOD COUNT 6.8 10^3/ul (4.8-10.8)
[2017-09-28 05:40] LABS: BASOPHILS % 0.3 % (0.0-2.0); EOSINOPHILS # 0.1 10^3/ul (0.0-0.5); EOSINOPHILS % 1.9 % (0.0-7.0); HEMATOCRIT 25.5 % (37.0-47.0); HEMOGLOBIN 8.7 g/dl (12.0-16.0); LYMPHOCYTES % 15.1 % (15.0-51.0); MEAN CORPUSCULAR HGB CONC 34.1 g/dl (32.0-37.0); MEAN CORPUSCULAR VOLUME 96.6 fl (82.0-101.0); MEAN PLATELET VOLUME 10.9 fl (7.4-10.4); MONOCYTE # 0.5 10^3/ul (0.3-0.9); MONOCYTES % 7.8 % (0.0-11.0); NEUTROPHIL # 5.1 10^3/ul (1.6-7.5); NEUTROPHILS % 74.8 % (39.0-77.0); PLATELET COUNT 388 10^3/UL (140-415); RED BLOOD COUNT 2.64 10^6/ul (4.20-5.40); RED CELL DISTRIBUTION WIDTH 16.3 % (11.5-14.5)
[2017-09-28] MEDS: INSULIN ASPART [NOVOLOG] 3 ML PEN SC ×4 (05:40→23:43)
[2017-09-28 05:52] LABS: ANION GAP 12 (8-16); BLOOD UREA NITROGEN 14 mg/dl (7-20); CALCIUM 8.2 mg/dl (8.4-10.2); CARBON DIOXIDE 33 mmol/L (21-31); CHLORIDE 101 mmol/L (97-110); CREATININE 1.88 mg/dl (0.44-1.00); GLUCOSE 150 mg/dl (70-220); POTASSIUM 4.5 mmol/L (3.5-5.1); SODIUM 141 mmol/L (135-144)
[2017-09-28] MEDS: MULTIVIT/CA CARB/B CMPLX/FA TAB GTB (08:37)
[2017-09-28] MEDS: POLYETHYLENE GLYCOL 17 GM PACKET GTB (08:37)
[2017-09-28] MEDS: LOSARTAN 50 MG TAB GTB (08:37)
[2017-09-28] MEDS: VITAMIN B COMPLEX/VIT C CAP GTB (08:37)
[2017-09-28] MEDS: AMLODIPINE 10 MG TAB GTB (08:37)
[2017-09-28] MEDS: ENOXAPARIN 30 MG/0.3 ML SYG SC (08:38)
[2017-09-29] MEDS: ACCU-CHEK XX (02:00)
[2017-09-29] MEDS: METOCLOPRAMIDE 10 MG INJ IV ×3 (05:17→17:42)
[2017-09-29] MEDS: LANSOPRAZOLE 30 MG CAP GTB ×2 (05:17→17:42)
[2017-09-29] MEDS: INSULIN ASPART [NOVOLOG] 3 ML PEN SC ×3 (06:00→17:41)
[2017-09-29] MEDS: POLYETHYLENE GLYCOL 17 GM PACKET GTB (09:05)
[2017-09-29] MEDS: MULTIVIT/CA CARB/B CMPLX/FA TAB GTB (09:05)
[2017-09-29] MEDS: VITAMIN B COMPLEX/VIT C CAP GTB (09:05)
[2017-09-29] MEDS: LOSARTAN 50 MG TAB GTB (09:06)
[2017-09-29] MEDS: AMLODIPINE 10 MG TAB GTB (09:06)
[2017-09-29] MEDS: ENOXAPARIN 30 MG/0.3 ML SYG SC (09:07)
[2017-09-29] MEDS ORDERED: ALBUMIN HUMAN 25% 50 ML IV (15:00)
[2017-09-29] MEDS ORDERED: SODIUM CHLORIDE 0.9% 1L BAG IV (15:00)
[2017-09-30] MEDS: METOCLOPRAMIDE 10 MG INJ IV ×4 (00:12→17:36)
[2017-09-30] MEDS: INSULIN ASPART [NOVOLOG] 3 ML PEN SC ×4 (00:23→17:38)
[2017-09-30] MEDS: ACCU-CHEK XX (02:00)
[2017-09-30] MEDS: LANSOPRAZOLE 30 MG CAP GTB ×2 (06:22→17:36)
[2017-09-30] MEDS: VITAMIN B COMPLEX/VIT C CAP GTB (08:50)
[2017-09-30] MEDS: POLYETHYLENE GLYCOL 17 GM PACKET GTB (08:50)
[2017-09-30] MEDS: MULTIVIT/CA CARB/B CMPLX/FA TAB GTB (08:50)
[2017-09-30] MEDS: AMLODIPINE 10 MG TAB GTB (08:51)
[2017-09-30] MEDS: ENOXAPARIN 30 MG/0.3 ML SYG SC (08:51)
[2017-09-30] MEDS: LOSARTAN 50 MG TAB GTB (08:52)
== END 2017-09-30 18:15 | DRG 480 ==
LOC: PP2 21:30
PROVIDERS: Internal Medicine Nephrology
PROC: 0QS736Z Reposition Left Upper Femur with Intramedullary Internal Fixation Device, Percutaneous Approach (ICD-10-PCS; principal; 2017-09-11 19:00)
PROC: 0DH67UZ Insertion of Feeding Device into Stomach, Via Natural or Artificial Opening (ICD-10-PCS; 2017-09-11 20:17)
PROC: 5A1D70Z Performance of Urinary Filtration, Intermittent, Less than 6 Hours Per Day (ICD-10-PCS; 2017-09-11 20:17)
PROC: 5A1D70Z Performance of Urinary Filtration, Intermittent, Less than 6 Hours Per Day (ICD-10-PCS; 2017-09-11 20:17)
PROC: 5A1D70Z Performance of Urinary Filtration, Intermittent, Less than 6 Hours Per Day (ICD-10-PCS; 2017-09-11 20:17)
PROC: 5A1D70Z Performance of Urinary Filtration, Intermittent, Less than 6 Hours Per Day (ICD-10-PCS; 2017-09-11 20:17)
PROC: 5A1D70Z Performance of Urinary Filtration, Intermittent, Less than 6 Hours Per Day (ICD-10-PCS; 2017-09-11 20:17)
PROC: 5A1D70Z Performance of Urinary Filtration, Intermittent, Less than 6 Hours Per Day (ICD-10-PCS; 2017-09-11 20:17)
PROC: 5A1D70Z Performance of Urinary Filtration, Intermittent, Less than 6 Hours Per Day (ICD-10-PCS; 2017-09-11 20:17)
DX: S72.142A Displaced intertrochanteric fracture of left femur, initial encounter for closed fracture (principal); N18.6 End stage renal disease; I13.11 Hypertensive heart and chronic kidney disease without heart failure, with stage 5 chronic kidney disease, or end stage renal disease; E44.0 Moderate protein-calorie malnutrition; Z68.1 Body mass index [BMI] 19.9 or less, adult; E87.0 Hyperosmolality and hypernatremia; E11.22 Type 2 diabetes mellitus with diabetic chronic kidney disease; Z99.2 Dependence on renal dialysis; W19.XXXA Unspecified fall, initial encounter; Y92.129 Unspecified place in nursing home as the place of occurrence of the external cause; S72.112A Displaced fracture of greater trochanter of left femur, initial encounter for closed fracture; G30.9 Alzheimer's disease, unspecified; F02.80 Dementia in other diseases classified elsewhere, unspecified severity, without behavioral disturbance, psychotic disturbance, mood disturbance, and anxiety; E87.6 Hypokalemia; D64.9 Anemia, unspecified; I25.10 Atherosclerotic heart disease of native coronary artery without angina pectoris; R13.10 Dysphagia, unspecified; K29.70 Gastritis, unspecified, without bleeding; R62.7 Adult failure to thrive; M16.12 Unilateral primary osteoarthritis, left hip
CPT/HCPCS: 73530; 80048; 80053; 80061; 82140; 82962; 83735; 84100; 84484; 85014; 85018; 85025; 85610; 87081; 87340; 90935; 92526; 92610; 93005; 93306; 97110; 97163; 97530

== ENCOUNTER 2017-10-03 16:29 | Emergency (ER) | payer MEDICARE, BC ==
[2017-10-03 17:34] LABS: ADD MAN DIFF? NO
[2017-10-03 17:36] LABS: WHITE BLOOD COUNT 6.1 10^3/ul (4.8-10.8)
[2017-10-03 17:36] LABS: BASOPHILS % 0.3 % (0.0-2.0); EOSINOPHILS # 0.1 10^3/ul (0.0-0.5); EOSINOPHILS % 2.1 % (0.0-7.0); HEMATOCRIT 20.4 % (37.0-47.0); HEMOGLOBIN 7.1 g/dl (12.0-16.0); LYMPHOCYTES # 1.5 10^3/ul (0.8-2.9); LYMPHOCYTES % 24.1 % (15.0-51.0); MEAN CORPUSCULAR HEMOGLOBIN 32.7 pg (29.0-33.0); MEAN CORPUSCULAR HGB CONC 34.8 g/dl (32.0-37.0); MEAN PLATELET VOLUME 11.2 fl (7.4-10.4); MONOCYTE # 0.6 10^3/ul (0.3-0.9); MONOCYTES % 9.2 % (0.0-11.0); NEUTROPHIL # 3.9 10^3/ul (1.6-7.5); NEUTROPHILS % 63.8 % (39.0-77.0); PLATELET COUNT 449 10^3/UL (140-415); RED BLOOD COUNT 2.17 10^6/ul (4.20-5.40); RED CELL DISTRIBUTION WIDTH 16.2 % (11.5-14.5)
[2017-10-03 17:53] LABS: ALANINE AMINOTRANSFERASE 21 IU/L (13-69); ALBUMIN 2.8 g/dl (3.3-4.9); ALKALINE PHOSPHATASE 233 IU/L (42-121); ANION GAP 13 (8-16); ASPARTATE AMINO TRANSFERASE 24 IU/L (15-46); BLOOD UREA NITROGEN 73 mg/dl (7-20); CALCIUM 8.3 mg/dl (8.4-10.2); CARBON DIOXIDE 29 mmol/L (21-31); CHLORIDE 92 mmol/L (97-110); CREATININE 4.21 mg/dl (0.44-1.00); GLUCOSE 91 mg/dl (70-220); POTASSIUM 5.2 mmol/L (3.5-5.1); SODIUM 129 mmol/L (135-144); TOTAL PROTEIN 5.9 g/dl (6.1-8.1)
[2017-10-03 18:04] LABS: LACTIC ACID 2.1 mmol/L (0.5-2.0)
[2017-10-03 18:04] LABS: INR 0.86; PROTIME 11.8 Sec (11.9-14.9); PT RATIO 0.9
[2017-10-03 18:05] LABS: PARTIAL THROMBOPLASTIN TIME 41.2 Sec (25.0-35.0)
[2017-10-03 18:13] LABS: TROPONIN-I < 0.010 ng/ml (0.000-0.120)
== END 2017-10-03 20:26 | disposition home or self-care (01) ==
LOC: E/R 16:29
DX: R41.82 Altered mental status, unspecified (principal); D64.9 Anemia, unspecified; I12.9 Hypertensive chronic kidney disease with stage 1 through stage 4 chronic kidney disease, or unspecified chronic kidney disease; N18.9 Chronic kidney disease, unspecified; E11.22 Type 2 diabetes mellitus with diabetic chronic kidney disease; I50.9 Heart failure, unspecified; E87.1 Hypo-osmolality and hyponatremia; Z79.4 Long term (current) use of insulin; Z99.2 Dependence on renal dialysis
CPT/HCPCS: 36415; 70450; 71045; 80053; 83605; 84484; 85025; 85610; 85730; 87040; 99285-25

== ENCOUNTER 2018-01-13 16:02 | Emergency (ER) | payer MEDICARE, BC ==
[2018-01-13 16:58] LABS: ADD MAN DIFF? NO
[2018-01-13 17:11] LABS: ABNORMAL IP MESSAGE 1; BASOPHIL # 0.1 10^3/ul (0.0-0.1); BASOPHILS % 1.1 % (0.0-2.0); EOSINOPHILS # 0.1 10^3/ul (0.0-0.5); EOSINOPHILS % 2.6 % (0.0-7.0); HEMATOCRIT 34.1 % (37.0-47.0); HEMOGLOBIN 11.1 g/dl (12.0-16.0); LYMPHOCYTES # 0.4 10^3/ul (0.8-2.9); LYMPHOCYTES % 7.2 % (15.0-51.0); MEAN CORPUSCULAR HEMOGLOBIN 27.9 pg (29.0-33.0); MEAN CORPUSCULAR HGB CONC 32.6 g/dl (32.0-37.0); MEAN CORPUSCULAR VOLUME 85.7 fl (82.0-101.0); MEAN PLATELET VOLUME 9.1 fl (7.4-10.4); MONOCYTE # 0.5 10^3/ul (0.3-0.9); MONOCYTES % 9.8 % (0.0-11.0); NEUTROPHIL # 4.3 10^3/ul (1.6-7.5); NEUTROPHILS % 78.9 % (39.0-77.0); PLATELET COUNT 264 10^3/UL (140-415); RED BLOOD COUNT 3.98 10^6/ul (4.20-5.40); RED CELL DISTRIBUTION WIDTH 17.7 % (11.5-14.5)
[2018-01-13 17:11] LABS: WHITE BLOOD COUNT 5.4 10^3/ul (4.8-10.8)
[2018-01-13 17:15] LABS: POSITIVE DIFF @See below
[2018-01-13 17:32] LABS: INR 0.83; PROTIME 11.5 Sec (11.9-14.9); PT RATIO 0.9
[2018-01-13 17:33] LABS: PARTIAL THROMBOPLASTIN TIME 38.6 Sec (25.0-35.0)
[2018-01-13 17:37] LABS: ANION GAP 17 (8-16); BLOOD UREA NITROGEN 63 mg/dl (7-20); CALCIUM 8.7 mg/dl (8.4-10.2); CARBON DIOXIDE 31 mmol/L (21-31); CHLORIDE 87 mmol/L (97-110); CREATININE 3.11 mg/dl (0.44-1.00); GLUCOSE 146 mg/dl (70-220); POTASSIUM 5.3 mmol/L (3.5-5.1); SODIUM 130 mmol/L (135-144)
[2018-01-13] MEDS ORDERED: ACETAMINOPHEN 325 MG TAB PO (19:30)
[2018-01-13] MEDS ORDERED: NACL 0.9% 3 ML SYG IV (19:30)
[2018-01-13] MEDS ORDERED: ACETAMINOPHEN 650 MG SUPP PR (19:30)
[2018-01-13] MEDS ORDERED: ONDANSETRON 4 MG INJ IV (19:30)
[2018-01-13] MEDS: NICARDipine HCL 30 MG CAPSULE PO (19:32)
== END 2018-01-13 20:43 ==
LOC: E/R 20:43
DX: T82.49XA Other complication of vascular dialysis catheter, initial encounter (principal); I50.9 Heart failure, unspecified; I12.0 Hypertensive chronic kidney disease with stage 5 chronic kidney disease or end stage renal disease; N18.6 End stage renal disease; E11.22 Type 2 diabetes mellitus with diabetic chronic kidney disease; Y79.2 Prosthetic and other implants, materials and accessory orthopedic devices associated with adverse incidents
CPT/HCPCS: 36415; 80048; 85025; 85610; 85730; 93005; 99285-25

== ENCOUNTER 2018-02-25 08:42 | Inpatient (IN) | payer MEDICARE, BC ==
[2018-02-25 09:20] LABS: ADD MAN DIFF? NO
[2018-02-25 09:23] LABS: WHITE BLOOD COUNT 8.8 10^3/ul (4.8-10.8)
[2018-02-25 09:23] LABS: BASOPHILS % 0.5 % (0.0-2.0); EOSINOPHILS # 0.2 10^3/ul (0.0-0.5); EOSINOPHILS % 1.8 % (0.0-7.0); HEMATOCRIT 39.3 % (37.0-47.0); HEMOGLOBIN 13.1 g/dl (12.0-16.0); LYMPHOCYTES # 0.7 10^3/ul (0.8-2.9); LYMPHOCYTES % 7.7 % (15.0-51.0); MEAN CORPUSCULAR HEMOGLOBIN 27.5 pg (29.0-33.0); MEAN CORPUSCULAR HGB CONC 33.3 g/dl (32.0-37.0); MEAN CORPUSCULAR VOLUME 82.6 fl (82.0-101.0); MEAN PLATELET VOLUME 9.8 fl (7.4-10.4); MONOCYTE # 0.8 10^3/ul (0.3-0.9); MONOCYTES % 8.6 % (0.0-11.0); NEUTROPHIL # 7.2 10^3/ul (1.6-7.5); NEUTROPHILS % 81.2 % (39.0-77.0); PLATELET COUNT 276 10^3/UL (140-415); RED BLOOD COUNT 4.76 10^6/ul (4.20-5.40)
[2018-02-25 09:43] LABS: INR 0.86; PARTIAL THROMBOPLASTIN TIME 38.3 Sec (23.0-35.0); PROTIME 11.8 Sec (11.9-14.9); PT RATIO 0.9
[2018-02-25 09:50] LABS: ALANINE AMINOTRANSFERASE 30 IU/L (13-69); ALBUMIN 4.8 g/dl (3.3-4.9); ALBUMIN/GLOBULIN RATIO 1.41; ALKALINE PHOSPHATASE 316 IU/L (42-121); ANION GAP 22 (5-13); ASPARTATE AMINO TRANSFERASE 45 IU/L (15-46); BLOOD UREA NITROGEN 100 mg/dl (7-20); CALCIUM 9.2 mg/dl (8.4-10.2); CARBON DIOXIDE 27 mmol/L (21-31); CHLORIDE 80 mmol/L (97-110); CREATININE 4.54 mg/dl (0.44-1.00); GLUCOSE 104 mg/dl (70-220); LIPASE 89 U/L (23-300); SODIUM 129 mmol/L (135-144); TOTAL PROTEIN 8.2 g/dl (6.1-8.1)
[2018-02-25 10:02] LABS: POTASSIUM 6.7 mmol/L (3.5-5.1); TROPONIN-I < 0.012 ng/ml (0.000-0.120)
[2018-02-25] MEDS: CA CHLORIDE 10% 10 ML SYRINGE IV (10:24)
[2018-02-25] MEDS: CALCIUM GLUCONATE 10% 1 GM in DEXTROSE 5% 100 ML IVPB (10:24)
[2018-02-25] MEDS: ALBUTEROL 0.083% (NEB) 2.5 MG/3 ML AMP HHN (11:13)
[2018-02-25] MEDS: hydrALAzine 20 MG INJ IV (11:28)
[2018-02-25] MEDS ORDERED: ALBUMIN HUMAN 25% 50 ML IV (12:00)
[2018-02-25] MEDS ORDERED: SODIUM CHLORIDE 0.9% 1L BAG IV (12:00)
[2018-02-25] MEDS ORDERED: CEFAZOLIN 1 GM/50 ML (PMX) 100 ML IVPB (12:47)
[2018-02-25 14:13] LABS: HEPATITIS B SURFACE ANTIGEN NEGATIVE (NEGATIVE)
[2018-02-25] MEDS ORDERED: NACL 0.9% 3 ML SYG IV (14:30)
[2018-02-25 16:51] LABS: HEPATITIS B SURFACE ANTIBODY POSITIVE (NEGATIVE)
[2018-02-25] MEDS: MANNITOL 25% 50 ML INJ IV* (19:37)
[2018-02-25] MEDS: HEPARIN 1000 UNITS/ML 10 ML INJ CATHETER (19:38)
[2018-02-25] MEDS ORDERED: GLUCOSE GEL 15 GRAM TUBE BUCCAL (20:30)
[2018-02-25] MEDS ORDERED: GLUCOSE GEL 15 GRAM TUBE PO ×2 (20:30)
[2018-02-25] MEDS ORDERED: GLUCAGON 1 MG INJ IM (20:30)
[2018-02-25] MEDS ORDERED: DEXTROSE 50% 50 ML SYRINGE IV ×2 (20:30)
[2018-02-25] MEDS: INSULIN ASPART [NOVOLOG] 3 ML PEN SC (21:00)
[2018-02-25] MEDS: ASCORBIC ACID 500 MG TAB GTB (21:34)
[2018-02-25] MEDS: ACETAMINOPHEN 325 MG TAB PO (23:25)
[2018-02-26] MEDS: ACCU-CHEK XX (02:00)
[2018-02-26] MEDS ORDERED: ACCU-CHEK XX (02:00)
[2018-02-26] MEDS: LANSOPRAZOLE 30 MG CAP GTB (05:19)
[2018-02-26 06:38] LABS: ANION GAP 14 (5-13); BLOOD UREA NITROGEN 50 mg/dl (7-20); CALCIUM 9.7 mg/dl (8.4-10.2); CARBON DIOXIDE 28 mmol/L (21-31); CHLORIDE 93 mmol/L (97-110); GLUCOSE 173 mg/dl (70-220); POTASSIUM 4.8 mmol/L (3.5-5.1); SODIUM 135 mmol/L (135-144)
[2018-02-26] MEDS: INSULIN ASPART [NOVOLOG] 3 ML PEN SC ×4 (08:00→21:00)
[2018-02-26] MEDS: AMLODIPINE 10 MG TAB GTB (08:37)
[2018-02-26] MEDS: LOSARTAN 25 MG TAB GTB (08:37)
[2018-02-26] MEDS: ASCORBIC ACID 500 MG TAB GTB ×2 (08:38→21:31)
[2018-02-26] MEDS: ACETAMINOPHEN 325 MG TAB PO (16:39)
[2018-02-26] MEDS: ONDANSETRON 4 MG INJ IV (16:39)
[2018-02-26 16:42] LABS: HEMATOCRIT 35.1 % (37.0-47.0); HEMOGLOBIN 11.5 g/dl (12.0-16.0)
[2018-02-27] MEDS: ACCU-CHEK XX (02:00)
[2018-02-27] MEDS: LANSOPRAZOLE 30 MG CAP GTB (05:39)
[2018-02-27] MEDS: INSULIN ASPART [NOVOLOG] 3 ML PEN SC ×4 (07:38→21:00)
[2018-02-27] MEDS: HYDROmorphONE 0.5 MG/0.5 ML SYG IV ×3 (08:25→16:27)
[2018-02-27] MEDS: AMLODIPINE 10 MG TAB GTB (09:00)
[2018-02-27] MEDS: LOSARTAN 25 MG TAB GTB (09:00)
[2018-02-27] MEDS: ASCORBIC ACID 500 MG TAB GTB ×2 (09:00→20:57)
[2018-02-27] MEDS: HEPARIN 1000 UNITS/ML 10 ML INJ CATHETER (09:05)
[2018-02-27] MEDS ORDERED: HEPARIN 1000 UNITS/ML 10 ML INJ (11:34)
[2018-02-27] MEDS ORDERED: PROPOFOL 40 ML (12:04)
[2018-02-27] MEDS ORDERED: MIDAZOLAM 1 MG/ML 2 ML INJ (12:04)
[2018-02-27] MEDS ORDERED: ROPIVACAINE 0.2% 20 ML VIAL (12:05)
[2018-02-27] MEDS ORDERED: FENTAnyl 50 MCG/ML VIAL (12:09)
[2018-02-27] MEDS ORDERED: METOCLOPRAMIDE 10 MG INJ (12:11)
[2018-02-27] MEDS ORDERED: CEFAZOLIN 1 GM INJ ×2 (12:25)
[2018-02-27] MEDS: GELATIN SIZE 100 SPONGE (12:44)
[2018-02-27] MEDS: THROMBIN 5000 UNIT VIAL (12:45)
[2018-02-27] MEDS: HEPARIN 1000 UNITS/ML 10 ML INJ (12:46)
[2018-02-27] MEDS: LIDOCAINE 1% (STERILE-PAK) 30 ML INJ (12:46)
[2018-02-27] MEDS ORDERED: hydrALAzine 20 MG INJ (13:37)
[2018-02-27] MEDS: hydrALAzine 20 MG INJ IV (13:53)
[2018-02-27] MEDS ORDERED: HYDROmorphONE 1 MG/5 ML IV SYRINGE IV (14:02)
[2018-02-27 15:34] LABS: ADD MAN DIFF? NO
[2018-02-27 15:35] LABS: WHITE BLOOD COUNT 4.7 10^3/ul (4.8-10.8)
[2018-02-27 15:36] LABS: ABNORMAL IP MESSAGE 1; BASOPHILS % 0.6 % (0.0-2.0); EOSINOPHILS # 0.1 10^3/ul (0.0-0.5); EOSINOPHILS % 2.8 % (0.0-7.0); HEMATOCRIT 38.6 % (37.0-47.0); HEMOGLOBIN 12.3 g/dl (12.0-16.0); LYMPHOCYTES # 0.4 10^3/ul (0.8-2.9); LYMPHOCYTES % 8.6 % (15.0-51.0); MEAN CORPUSCULAR HEMOGLOBIN 27.3 pg (29.0-33.0); MEAN CORPUSCULAR HGB CONC 31.9 g/dl (32.0-37.0); MEAN CORPUSCULAR VOLUME 85.6 fl (82.0-101.0); MONOCYTE # 0.6 10^3/ul (0.3-0.9); MONOCYTES % 13.5 % (0.0-11.0); NEUTROPHIL # 3.5 10^3/ul (1.6-7.5); NEUTROPHILS % 74.3 % (39.0-77.0); PLATELET COUNT 225 10^3/UL (140-415); RED BLOOD COUNT 4.51 10^6/ul (4.20-5.40); RED CELL DISTRIBUTION WIDTH 17.5 % (11.5-14.5)
[2018-02-27 15:49] LABS: POSITIVE DIFF @See below
[2018-02-27 15:56] LABS: ANION GAP 12 (5-13); BLOOD UREA NITROGEN 38 mg/dl (7-20); CALCIUM 8.8 mg/dl (8.4-10.2); CARBON DIOXIDE 28 mmol/L (21-31); CHLORIDE 100 mmol/L (97-110); CREATININE 2.56 mg/dl (0.44-1.00); GLUCOSE 133 mg/dl (70-220); POTASSIUM 4.8 mmol/L (3.5-5.1); SODIUM 140 mmol/L (135-144)
[2018-02-27] MEDS: ACETAMINOPHEN 325 MG TAB PO (20:57)
[2018-02-28] MEDS: DESMOPRESSIN 15 MCG in SOD CHLORIDE 0.9% 50 ML IV (00:49)
[2018-02-28] MEDS: ACCU-CHEK XX (02:00)
[2018-02-28] MEDS: LANSOPRAZOLE 30 MG CAP GTB (05:59)
[2018-02-28 06:17] LABS: ADD MAN DIFF? NO
[2018-02-28 06:27] LABS: BASOPHIL # 0.1 10^3/ul (0.0-0.1); BASOPHILS % 0.8 % (0.0-2.0); EOSINOPHILS # 0.2 10^3/ul (0.0-0.5); EOSINOPHILS % 2.4 % (0.0-7.0); HEMATOCRIT 35.5 % (37.0-47.0); HEMOGLOBIN 11.2 g/dl (12.0-16.0); LYMPHOCYTES # 0.6 10^3/ul (0.8-2.9); LYMPHOCYTES % 9.5 % (15.0-51.0); MEAN CORPUSCULAR HEMOGLOBIN 27.2 pg (29.0-33.0); MEAN CORPUSCULAR HGB CONC 31.5 g/dl (32.0-37.0); MEAN CORPUSCULAR VOLUME 86.2 fl (82.0-101.0); MEAN PLATELET VOLUME 10.5 fl (7.4-10.4); MONOCYTES % 16.4 % (0.0-11.0); NEUTROPHIL # 4.5 10^3/ul (1.6-7.5); NEUTROPHILS % 70.7 % (39.0-77.0); PLATELET COUNT 251 10^3/UL (140-415); RED BLOOD COUNT 4.12 10^6/ul (4.20-5.40); RED CELL DISTRIBUTION WIDTH 17.7 % (11.5-14.5)
[2018-02-28 06:27] LABS: WHITE BLOOD COUNT 6.3 10^3/ul (4.8-10.8)
[2018-02-28 06:42] LABS: PHOSPHORUS 5.4 mg/dl (2.5-4.9)
[2018-02-28 06:42] LABS: MAGNESIUM 2.8 mg/dl (1.7-2.5)
[2018-02-28 06:45] LABS: ANION GAP 17 (5-13); BLOOD UREA NITROGEN 62 mg/dl (7-20); CALCIUM 9.3 mg/dl (8.4-10.2); CARBON DIOXIDE 26 mmol/L (21-31); CHLORIDE 94 mmol/L (97-110); CREATININE 3.57 mg/dl (0.44-1.00); GLUCOSE 129 mg/dl (70-220); POTASSIUM 5.7 mmol/L (3.5-5.1); SODIUM 137 mmol/L (135-144)
[2018-02-28] MEDS: INSULIN ASPART [NOVOLOG] 3 ML PEN SC ×4 (07:31→21:00)
[2018-02-28] MEDS: ASCORBIC ACID 500 MG TAB GTB ×2 (08:00→21:11)
[2018-02-28] MEDS: LOSARTAN 25 MG TAB GTB (08:01)
[2018-02-28] MEDS: ACETAMINOPHEN 325 MG TAB PO (08:01)
[2018-02-28] MEDS: AMLODIPINE 10 MG TAB GTB (08:01)
[2018-02-28] MEDS: NA POLYST SULFON 15 GM/60 ML BTL GTB (11:11)
[2018-02-28] MEDS: traMADol 50 MG TAB NGT (12:35)
[2018-03-01] MEDS: ACCU-CHEK XX (02:00)
[2018-03-01] MEDS: LANSOPRAZOLE 30 MG CAP GTB (05:54)
[2018-03-01] MEDS: INSULIN ASPART [NOVOLOG] 3 ML PEN SC ×4 (08:00→20:36)
[2018-03-01] MEDS: DOCUSATE SODIUM 10 MG/ML (10ML CUP) PO (08:01)
[2018-03-01] MEDS: AMLODIPINE 10 MG TAB GTB (08:02)
[2018-03-01] MEDS: LOSARTAN 25 MG TAB GTB (08:02)
[2018-03-01] MEDS: ASCORBIC ACID 500 MG TAB GTB ×2 (08:02→20:30)
[2018-03-01] MEDS: traMADol 50 MG TAB NGT (08:02)
[2018-03-01] MEDS: hydrALAzine 20 MG INJ IV (10:16)
[2018-03-01 12:23] LABS: ADD MAN DIFF? NO
[2018-03-01 12:24] LABS: ABNORMAL IP MESSAGE 1; BASOPHILS % 0.7 % (0.0-2.0); EOSINOPHILS # 0.2 10^3/ul (0.0-0.5); EOSINOPHILS % 3.1 % (0.0-7.0); HEMATOCRIT 36.6 % (37.0-47.0); HEMOGLOBIN 11.8 g/dl (12.0-16.0); LYMPHOCYTES # 0.4 10^3/ul (0.8-2.9); LYMPHOCYTES % 8.1 % (15.0-51.0); MEAN CORPUSCULAR HEMOGLOBIN 27.4 pg (29.0-33.0); MEAN CORPUSCULAR HGB CONC 32.2 g/dl (32.0-37.0); MEAN CORPUSCULAR VOLUME 84.9 fl (82.0-101.0); MEAN PLATELET VOLUME 11.1 fl (7.4-10.4); MONOCYTE # 0.6 10^3/ul (0.3-0.9); MONOCYTES % 11.4 % (0.0-11.0); NEUTROPHIL # 4.1 10^3/ul (1.6-7.5); NEUTROPHILS % 76.5 % (39.0-77.0); PLATELET COUNT 275 10^3/UL (140-415); RED BLOOD COUNT 4.31 10^6/ul (4.20-5.40)
[2018-03-01 12:24] LABS: WHITE BLOOD COUNT 5.4 10^3/ul (4.8-10.8)
[2018-03-01 12:33] LABS: POSITIVE DIFF @See below
[2018-03-01 12:41] LABS: ANION GAP 16 (5-13); BLOOD UREA NITROGEN 45 mg/dl (7-20); CALCIUM 9.2 mg/dl (8.4-10.2); CARBON DIOXIDE 28 mmol/L (21-31); CHLORIDE 92 mmol/L (97-110); CREATININE 2.59 mg/dl (0.44-1.00); GLUCOSE 153 mg/dl (70-220); POTASSIUM 3.8 mmol/L (3.5-5.1); SODIUM 136 mmol/L (135-144)
[2018-03-01] MEDS: ACETAMINOPHEN 325 MG TAB PO (13:01)
[2018-03-02] MEDS: ACCU-CHEK XX (02:53)
[2018-03-02 05:33] LABS: ADD MAN DIFF? NO
[2018-03-02 05:37] LABS: WHITE BLOOD COUNT 4.2 10^3/ul (4.8-10.8)
[2018-03-02 05:37] LABS: ABNORMAL IP MESSAGE 1; BASOPHILS % 0.9 % (0.0-2.0); EOSINOPHILS # 0.2 10^3/ul (0.0-0.5); EOSINOPHILS % 3.8 % (0.0-7.0); HEMATOCRIT 33.4 % (37.0-47.0); HEMOGLOBIN 11.1 g/dl (12.0-16.0); LYMPHOCYTES # 0.5 10^3/ul (0.8-2.9); MEAN CORPUSCULAR HEMOGLOBIN 27.8 pg (29.0-33.0); MEAN CORPUSCULAR HGB CONC 33.2 g/dl (32.0-37.0); MEAN CORPUSCULAR VOLUME 83.7 fl (82.0-101.0); MONOCYTE # 0.6 10^3/ul (0.3-0.9); MONOCYTES % 14.2 % (0.0-11.0); NEUTROPHIL # 2.9 10^3/ul (1.6-7.5); NEUTROPHILS % 68.9 % (39.0-77.0); PLATELET COUNT 232 10^3/UL (140-415); RED BLOOD COUNT 3.99 10^6/ul (4.20-5.40); RED CELL DISTRIBUTION WIDTH 16.5 % (11.5-14.5)
[2018-03-02 05:39] LABS: POSITIVE DIFF @See below
[2018-03-02] MEDS: LANSOPRAZOLE 30 MG CAP GTB (05:43)
[2018-03-02] MEDS: traMADol 50 MG TAB NGT (05:47)
[2018-03-02 05:59] LABS: ANION GAP 17 (5-13); BLOOD UREA NITROGEN 66 mg/dl (7-20); CALCIUM 8.6 mg/dl (8.4-10.2); CARBON DIOXIDE 25 mmol/L (21-31); CHLORIDE 92 mmol/L (97-110); CREATININE 3.56 mg/dl (0.44-1.00); GLUCOSE 126 mg/dl (70-220); POTASSIUM 3.4 mmol/L (3.5-5.1); SODIUM 134 mmol/L (135-144)
[2018-03-02] MEDS: POTASSIUM CHLORIDE 20 MEQ POWDER FOR ORAL SOLN GTB (06:40)
[2018-03-02] MEDS: INSULIN ASPART [NOVOLOG] 3 ML PEN SC ×4 (07:53→21:00)
[2018-03-02] MEDS: ACETAMINOPHEN 325 MG TAB PO (08:26)
[2018-03-02] MEDS: ASCORBIC ACID 500 MG TAB GTB ×2 (08:26→21:09)
[2018-03-02] MEDS: LOSARTAN 25 MG TAB GTB (08:27)
[2018-03-02] MEDS: AMLODIPINE 10 MG TAB GTB (08:27)
[2018-03-02] MEDS: hydrALAzine 20 MG INJ IV (10:01)
[2018-03-02] MEDS: HEPARIN 1000 UNITS/ML 10 ML INJ CATHETER (17:46)
[2018-03-03] MEDS: ACCU-CHEK XX (02:00)
[2018-03-03] MEDS: LANSOPRAZOLE 30 MG CAP GTB (06:05)
[2018-03-03] MEDS: INSULIN ASPART [NOVOLOG] 3 ML PEN SC ×3 (08:00→17:41)
[2018-03-03] MEDS: LOSARTAN 25 MG TAB GTB (08:33)
[2018-03-03] MEDS: ASCORBIC ACID 500 MG TAB GTB (08:33)
[2018-03-03] MEDS: AMLODIPINE 10 MG TAB GTB (08:33)
[2018-03-03] MEDS: DOCUSATE SODIUM 10 MG/ML (10ML CUP) PO (12:28)
[2018-03-03] MEDS: ACETAMINOPHEN 325 MG TAB PO (12:28)
[2018-03-03] MEDS: hydrALAzine 20 MG INJ IV (16:42)
== END 2018-03-03 18:40 | DRG 252 ==
LOC: E/R 08:42 → 6WM 10:42
PROC: 05CY0ZZ Extirpation of Matter from Upper Vein, Open Approach (ICD-10-PCS; principal; 2018-02-25 12:17)
PROC: 0JH63XZ Insertion of Tunneled Vascular Access Device into Chest Subcutaneous Tissue and Fascia, Percutaneous Approach (ICD-10-PCS; 2018-02-25 12:17)
PROC: 02H633Z Insertion of Infusion Device into Right Atrium, Percutaneous Approach (ICD-10-PCS; 2018-02-25 12:17)
PROC: B244ZZZ Ultrasonography of Right Heart (ICD-10-PCS; 2018-02-25 12:17)
PROC: 5A1D70Z Performance of Urinary Filtration, Intermittent, Less than 6 Hours Per Day (ICD-10-PCS; 2018-02-25 12:17)
PROC: 5A1D70Z Performance of Urinary Filtration, Intermittent, Less than 6 Hours Per Day (ICD-10-PCS; 2018-02-25 12:17)
PROC: 5A1D70Z Performance of Urinary Filtration, Intermittent, Less than 6 Hours Per Day (ICD-10-PCS; 2018-02-25 12:17)
PROC: 5A1D70Z Performance of Urinary Filtration, Intermittent, Less than 6 Hours Per Day (ICD-10-PCS; 2018-02-25 12:17)
DX: T82.838A Hemorrhage due to vascular prosthetic devices, implants and grafts, initial encounter (principal); N18.6 End stage renal disease; I50.21 Acute systolic (congestive) heart failure; I13.2 Hypertensive heart and chronic kidney disease with heart failure and with stage 5 chronic kidney disease, or end stage renal disease; E87.1 Hypo-osmolality and hyponatremia; E87.5 Hyperkalemia; Y83.2 Surgical operation with anastomosis, bypass or graft as the cause of abnormal reaction of the patient, or of later complication, without mention of misadventure at the time of the procedure; Y92.538 Other ambulatory health services establishments as the place of occurrence of the external cause; I25.10 Atherosclerotic heart disease of native coronary artery without angina pectoris; Z99.2 Dependence on renal dialysis
CPT/HCPCS: 36415; 71045; 80048; 80053; 82962; 83690; 83735; 84100; 84484; 85014; 85018; 85025; 85610; 85730; 86706; 87081; 87340; 88304; 90935; 93005; 93931; 94644; 96374; 99285-25

== ENCOUNTER 2018-09-13 14:32 | Inpatient (IN) | payer MEDICARE, BC ==
[2018-09-13] MEDS: SOD CHLORIDE 0.9% 1,000 ML IV (15:05)
[2018-09-13] MEDS: PANTOPRAZOLE 40 MG INJ IV (15:05)
[2018-09-13 15:09] LABS: ADD MAN DIFF? NO
[2018-09-13 15:12] LABS: WHITE BLOOD COUNT 11.1 10^3/ul (4.8-10.8)
[2018-09-13 15:12] LABS: BASOPHIL # 0.1 10^3/ul (0.0-0.1); BASOPHILS % 0.5 % (0.0-2.0); EOSINOPHILS # 0.1 10^3/ul (0.0-0.5); EOSINOPHILS % 0.5 % (0.0-7.0); HEMATOCRIT 29.9 % (37.0-47.0); HEMOGLOBIN 9.7 g/dl (12.0-16.0); LYMPHOCYTES # 0.7 10^3/ul (0.8-2.9); LYMPHOCYTES % 6.5 % (15.0-51.0); MEAN CORPUSCULAR HEMOGLOBIN 30.6 pg (29.0-33.0); MEAN CORPUSCULAR HGB CONC 32.4 g/dl (32.0-37.0); MEAN CORPUSCULAR VOLUME 94.3 fl (82.0-101.0); MEAN PLATELET VOLUME 9.2 fl (7.4-10.4); MONOCYTE # 0.5 10^3/ul (0.3-0.9); MONOCYTES % 4.3 % (0.0-11.0); NEUTROPHIL # 9.8 10^3/ul (1.6-7.5); NEUTROPHILS % 87.8 % (39.0-77.0); PLATELET COUNT 570 10^3/UL (140-415); RED BLOOD COUNT 3.17 10^6/ul (4.20-5.40); RED CELL DISTRIBUTION WIDTH 15.4 % (11.5-14.5)
[2018-09-13 15:32] LABS: ALANINE AMINOTRANSFERASE 28 IU/L (13-69); ALBUMIN 4.2 g/dl (3.3-4.9); ALBUMIN/GLOBULIN RATIO 1.16; ALKALINE PHOSPHATASE 182 IU/L (42-121); ANION GAP 17 (5-13); ASPARTATE AMINO TRANSFERASE 33 IU/L (15-46); BILIRUBIN,INDIRECT 0.2 mg/dl (0-1.1); BILIRUBIN,TOTAL 0.2 mg/dl (0.2-1.3); BLOOD UREA NITROGEN 80 mg/dl (7-20); CALCIUM 9.2 mg/dl (8.4-10.2); CARBON DIOXIDE 34 mmol/L (21-31); CHLORIDE 84 mmol/L (97-110); CREATININE 4.81 mg/dl (0.44-1.00); GLUCOSE 221 mg/dl (70-220); INR 0.97; LIPASE 83 U/L (23-300); POTASSIUM 4.3 mmol/L (3.5-5.1); SODIUM 135 mmol/L (135-144); TOTAL PROTEIN 7.8 g/dl (6.1-8.1)
[2018-09-13 15:33] LABS: PARTIAL THROMBOPLASTIN TIME 34.8 Sec (23.0-35.0)
[2018-09-13 15:43] LABS: TROPONIN-I < 0.012 ng/ml (0.000-0.120)
[2018-09-13] MEDS ORDERED: ONDANSETRON 4 MG INJ (17:14)
[2018-09-13] MEDS ORDERED: ONDANSETRON 4 MG INJ IV (18:30)
[2018-09-13] MEDS ORDERED: ACETAMINOPHEN 325 MG TAB PO (18:30)
[2018-09-13] MEDS ORDERED: ACETAMINOPHEN 500 MG TAB PO (23:00)
[2018-09-13] MEDS ORDERED: NACL 0.9% 3 ML SYG IV (23:30)
[2018-09-13] MEDS ORDERED: HYDROCODONE/APAP (5/325) TAB PO (23:30)
[2018-09-13] MEDS ORDERED: DEXTROSE 50% 50 ML SYRINGE IV ×2 (23:45)
[2018-09-13] MEDS ORDERED: GLUCOSE GEL 15 GRAM TUBE BUCCAL (23:45)
[2018-09-13] MEDS ORDERED: GLUCOSE GEL 15 GRAM TUBE PO ×2 (23:45)
[2018-09-13] MEDS ORDERED: GLUCAGON 1 MG INJ IM (23:45)
[2018-09-14] MEDS: INSULIN ASPART [NOVOLOG] 3 ML PEN SC ×4 (00:09→17:32)
[2018-09-14] MEDS: traMADol 50 MG TAB GTB ×2 (03:55→12:26)
[2018-09-14] MEDS: DOCUSATE SODIUM 100 MG CAP PO (03:56)
[2018-09-14] MEDS: DOCUSATE SODIUM 10 MG/ML (10ML CUP) GTB (05:17)
[2018-09-14] MEDS: PANTOPRAZOLE 40 MG INJ IV (05:26)
[2018-09-14] MEDS ORDERED: DOCUSATE SODIUM 10 MG/ML (10ML CUP) PO (09:00)
[2018-09-14] MEDS: MULTIVIT/CA CARB/B CMPLX/FA TAB GTB (09:06)
[2018-09-14] MEDS: METOCLOPRAMIDE 5 MG TAB GTB (09:06)
[2018-09-14] MEDS: AMLODIPINE 10 MG TAB GTB (09:06)
[2018-09-14] MEDS: LOSARTAN 25 MG TAB GTB (09:06)
[2018-09-14] MEDS: FERROUS SULFATE 60 MG/ML 5ML CUP GTB (09:06)
[2018-09-14] MEDS: ONDANSETRON 4 MG INJ IV ×2 (09:14)
[2018-09-14] MEDS: METOCLOPRAMIDE 10 MG INJ IV (17:23)
[2018-09-14 22:27] LABS: ADD MAN DIFF? NO
[2018-09-14 22:37] LABS: BASOPHILS % 0.7 % (0.0-2.0); EOSINOPHILS # 0.1 10^3/ul (0.0-0.5); EOSINOPHILS % 1.8 % (0.0-7.0); HEMATOCRIT 26.3 % (37.0-47.0); HEMOGLOBIN 8.3 g/dl (12.0-16.0); LYMPHOCYTES # 0.8 10^3/ul (0.8-2.9); LYMPHOCYTES % 15.1 % (15.0-51.0); MEAN CORPUSCULAR HEMOGLOBIN 30.1 pg (29.0-33.0); MEAN CORPUSCULAR HGB CONC 31.6 g/dl (32.0-37.0); MEAN CORPUSCULAR VOLUME 95.3 fl (82.0-101.0); MONOCYTE # 0.4 10^3/ul (0.3-0.9); MONOCYTES % 6.5 % (0.0-11.0); NEUTROPHIL # 4.2 10^3/ul (1.6-7.5); NEUTROPHILS % 75.7 % (39.0-77.0); PLATELET COUNT 470 10^3/UL (140-415); RED BLOOD COUNT 2.76 10^6/ul (4.20-5.40); RED CELL DISTRIBUTION WIDTH 15.6 % (11.5-14.5)
[2018-09-14 22:37] LABS: WHITE BLOOD COUNT 5.6 10^3/ul (4.8-10.8)
[2018-09-14 22:45] LABS: ALANINE AMINOTRANSFERASE 15 IU/L (13-69); ALBUMIN 3.5 g/dl (3.3-4.9); ALKALINE PHOSPHATASE 106 IU/L (42-121); ANION GAP 15 (5-13); ASPARTATE AMINO TRANSFERASE 20 IU/L (15-46); BILIRUBIN,INDIRECT 0.2 mg/dl (0-1.1); BILIRUBIN,TOTAL 0.2 mg/dl (0.2-1.3); BLOOD UREA NITROGEN 75 mg/dl (7-20); CARBON DIOXIDE 29 mmol/L (21-31); CHLORIDE 90 mmol/L (97-110); GLUCOSE 266 mg/dl (70-220); POTASSIUM 3.2 mmol/L (3.5-5.1); SODIUM 134 mmol/L (135-144); TOTAL PROTEIN 6.4 g/dl (6.1-8.1)
[2018-09-14] MEDS: DEXTROSE 5%-0.45% NACL 1,000 ML IV ×2 (23:03)
[2018-09-14 23:15] LABS: HEPATITIS B SURFACE ANTIGEN NEGATIVE (NEGATIVE)
[2018-09-15] MEDS: INSULIN GLARGINE [LANTus] (100 UNITS/ML) SYG SC ×2 (00:29→20:27)
[2018-09-15] MEDS: PANTOPRAZOLE 40 MG INJ IV ×3 (00:30→20:25)
[2018-09-15] MEDS: METOCLOPRAMIDE 10 MG INJ IV ×5 (00:30→23:53)
[2018-09-15] MEDS: INSULIN ASPART [NOVOLOG] 3 ML PEN SC ×4 (00:37→17:34)
[2018-09-15] MEDS: AMLODIPINE 10 MG TAB GTB (08:57)
[2018-09-15] MEDS: LOSARTAN 25 MG TAB GTB (08:57)
[2018-09-15] MEDS: FERROUS SULFATE 60 MG/ML 5ML CUP GTB (08:57)
[2018-09-15] MEDS: MULTIVIT/CA CARB/B CMPLX/FA TAB GTB (08:58)
[2018-09-15] MEDS: hydrALAzine 20 MG INJ IV (09:06)
[2018-09-15] MEDS: POTASSIUM CHLORIDE 100 ML IVPB ×2 (11:37→12:00)
[2018-09-15] MEDS: DEXTROSE 5%-0.45% NACL 1,000 ML IV (17:35)
[2018-09-16] MEDS: INSULIN ASPART [NOVOLOG] 3 ML PEN SC ×6 (01:24→20:19)
[2018-09-16] MEDS: METOCLOPRAMIDE 10 MG INJ IV ×3 (05:34→17:56)
[2018-09-16 07:30] LABS: ADD MAN DIFF? NO
[2018-09-16 07:33] LABS: WHITE BLOOD COUNT 6.3 10^3/ul (4.8-10.8)
[2018-09-16 07:33] LABS: BASOPHIL # 0.1 10^3/ul (0.0-0.1); EOSINOPHILS # 0.2 10^3/ul (0.0-0.5); EOSINOPHILS % 2.7 % (0.0-7.0); HEMATOCRIT 30.1 % (37.0-47.0); HEMOGLOBIN 9.2 g/dl (12.0-16.0); LYMPHOCYTES # 0.9 10^3/ul (0.8-2.9); LYMPHOCYTES % 14.9 % (15.0-51.0); MEAN CORPUSCULAR HEMOGLOBIN 30.2 pg (29.0-33.0); MEAN CORPUSCULAR HGB CONC 30.6 g/dl (32.0-37.0); MEAN CORPUSCULAR VOLUME 98.7 fl (82.0-101.0); MEAN PLATELET VOLUME 9.2 fl (7.4-10.4); MONOCYTE # 0.7 10^3/ul (0.3-0.9); MONOCYTES % 10.7 % (0.0-11.0); NEUTROPHIL # 4.4 10^3/ul (1.6-7.5); NEUTROPHILS % 70.5 % (39.0-77.0); PLATELET COUNT 513 10^3/UL (140-415); RED BLOOD COUNT 3.05 10^6/ul (4.20-5.40); RED CELL DISTRIBUTION WIDTH 15.5 % (11.5-14.5)
[2018-09-16 07:56] LABS: ANION GAP 11 (5-13); BLOOD UREA NITROGEN 48 mg/dl (7-20); CALCIUM 8.4 mg/dl (8.4-10.2); CARBON DIOXIDE 26 mmol/L (21-31); CHLORIDE 102 mmol/L (97-110); GLUCOSE 92 mg/dl (70-220); POTASSIUM 3.9 mmol/L (3.5-5.1); SODIUM 139 mmol/L (135-144)
[2018-09-16 07:57] LABS: MAGNESIUM 2.6 mg/dl (1.7-2.5)
[2018-09-16 07:57] LABS: PHOSPHORUS 5.2 mg/dl (2.5-4.9)
[2018-09-16] MEDS: AMLODIPINE 10 MG TAB GTB (09:00)
[2018-09-16] MEDS: PANTOPRAZOLE 40 MG INJ IV ×2 (09:00→20:17)
[2018-09-16] MEDS: MULTIVIT/CA CARB/B CMPLX/FA TAB GTB (09:00)
[2018-09-16] MEDS: FERROUS SULFATE 60 MG/ML 5ML CUP GTB (09:00)
[2018-09-16] MEDS: LOSARTAN 25 MG TAB GTB (09:00)
[2018-09-16] MEDS ORDERED: LABETALOL HCL 20MG INJ IV (13:00)
[2018-09-16] MEDS ORDERED: HYDROmorphONE 1 MG/5 ML IV SYRINGE IV (13:00)
[2018-09-16] MEDS ORDERED: ONDANSETRON 4 MG INJ IV (13:00)
[2018-09-16] MEDS ORDERED: FENTAnyl 50 MCG/ML VIAL IV (13:00)
[2018-09-16] MEDS ORDERED: hydrALAzine 20 MG INJ IV (13:00)
[2018-09-16] MEDS: PROPOFOL 20 ML ×2 (13:09)
[2018-09-16] MEDS ORDERED: AL HYDROX/MG HYDROX/SIMETH 30 ML CUP PO (20:00)
[2018-09-16] MEDS: INSULIN GLARGINE [LANTus] (100 UNITS/ML) SYG SC (20:18)
[2018-09-16] MEDS: ACETAMINOPHEN 325 MG TAB GTB (20:27)
[2018-09-17] MEDS: METOCLOPRAMIDE 10 MG INJ IV ×4 (00:07→17:08)
[2018-09-17] MEDS: EPOETIN ALFA-EPBX (ESRD) 4,000 UNIT/ML VIAL SC (02:21)
[2018-09-17 06:15] LABS: ADD MAN DIFF? NO
[2018-09-17 06:17] LABS: WHITE BLOOD COUNT 5.7 10^3/ul (4.8-10.8)
[2018-09-17 06:17] LABS: BASOPHIL # 0.1 10^3/ul (0.0-0.1); BASOPHILS % 0.9 % (0.0-2.0); EOSINOPHILS # 0.2 10^3/ul (0.0-0.5); EOSINOPHILS % 3.5 % (0.0-7.0); HEMATOCRIT 29.6 % (37.0-47.0); HEMOGLOBIN 9.3 g/dl (12.0-16.0); LYMPHOCYTES # 0.8 10^3/ul (0.8-2.9); LYMPHOCYTES % 13.6 % (15.0-51.0); MEAN CORPUSCULAR HEMOGLOBIN 30.9 pg (29.0-33.0); MEAN CORPUSCULAR HGB CONC 31.4 g/dl (32.0-37.0); MEAN CORPUSCULAR VOLUME 98.3 fl (82.0-101.0); MEAN PLATELET VOLUME 9.2 fl (7.4-10.4); MONOCYTE # 0.5 10^3/ul (0.3-0.9); MONOCYTES % 9.5 % (0.0-11.0); NEUTROPHIL # 4.1 10^3/ul (1.6-7.5); NEUTROPHILS % 72.1 % (39.0-77.0); PLATELET COUNT 434 10^3/UL (140-415); RED BLOOD COUNT 3.01 10^6/ul (4.20-5.40); RED CELL DISTRIBUTION WIDTH 15.7 % (11.5-14.5)
[2018-09-17] MEDS: INSULIN ASPART [NOVOLOG] 3 ML PEN SC ×3 (08:24→17:09)
[2018-09-17] MEDS: FERROUS SULFATE 60 MG/ML 5ML CUP GTB (08:37)
[2018-09-17] MEDS: AMLODIPINE 10 MG TAB GTB (08:38)
[2018-09-17] MEDS: PANTOPRAZOLE 40 MG INJ IV (08:38)
[2018-09-17] MEDS: MULTIVIT/CA CARB/B CMPLX/FA TAB GTB (08:38)
[2018-09-17] MEDS: LOSARTAN 25 MG TAB GTB (08:38)
[2018-09-17] MEDS: BISACODYL (EC) 5 MG TAB PO (14:56)
[2018-09-17] MEDS: LANSOPRAZOLE 30 MG CAP GTB (17:08)
== END 2018-09-17 17:32 | DRG 377 ==
LOC: E/R 14:32 → PP2 18:01
PROC: 0DB68ZX Excision of Stomach, Via Natural or Artificial Opening Endoscopic, Diagnostic (ICD-10-PCS; principal; 2018-09-16 12:10)
PROC: 0D20XYZ Change Other Device in Upper Intestinal Tract, External Approach (ICD-10-PCS; 2018-09-16 12:10)
DX: K92.2 Gastrointestinal hemorrhage, unspecified (principal); N18.6 End stage renal disease; G93.40 Encephalopathy, unspecified; I13.0 Hypertensive heart and chronic kidney disease with heart failure and stage 1 through stage 4 chronic kidney disease, or unspecified chronic kidney disease; I50.9 Heart failure, unspecified; R13.10 Dysphagia, unspecified; D64.9 Anemia, unspecified; F03.90 Unspecified dementia, unspecified severity, without behavioral disturbance, psychotic disturbance, mood disturbance, and anxiety; M19.90 Unspecified osteoarthritis, unspecified site; K21.9 Gastro-esophageal reflux disease without esophagitis; E78.5 Hyperlipidemia, unspecified; I25.10 Atherosclerotic heart disease of native coronary artery without angina pectoris; Z99.2 Dependence on renal dialysis; Z93.1 Gastrostomy status
CPT/HCPCS: 36415; 71045; 74176; 80048; 80053; 82962; 83690; 83735; 84100; 84484; 85025; 85610; 85730; 86850; 86900; 86901; 87081; 87340; 88305; 88312; 90935; 93005; 96374; 99285-25

== ENCOUNTER 2019-01-11 00:08 | Inpatient (IN) | payer MEDICARE, BC ==
[2019-01-11] MEDS ORDERED: NITROGLYCERIN (SL) 0.4 MG TAB SL (04:00)
[2019-01-11] MEDS: SOD CHLORIDE 0.9% 1,000 ML IV (05:18)
[2019-01-11] MEDS: LANSOPRAZOLE (SOLTAB) 30 MG TAB GTB (06:06)
[2019-01-11 06:15] LABS: ADD MAN DIFF? NO
[2019-01-11 06:21] LABS: WHITE BLOOD COUNT 6.8 10^3/ul (4.8-10.8)
[2019-01-11 06:21] LABS: BASOPHIL # 0.1 10^3/ul (0.0-0.1); BASOPHILS % 0.9 % (0.0-2.0); EOSINOPHILS # 0.2 10^3/ul (0.0-0.5); EOSINOPHILS % 3.4 % (0.0-7.0); HEMATOCRIT 37.7 % (37.0-47.0); HEMOGLOBIN 12.1 g/dl (12.0-16.0); LYMPHOCYTES # 1.1 10^3/ul (0.8-2.9); LYMPHOCYTES % 16.8 % (15.0-51.0); MEAN CORPUSCULAR HEMOGLOBIN 29.4 pg (29.0-33.0); MEAN CORPUSCULAR HGB CONC 32.1 g/dl (32.0-37.0); MEAN CORPUSCULAR VOLUME 91.7 fl (82.0-101.0); MEAN PLATELET VOLUME 9.2 fl (7.4-10.4); MONOCYTE # 0.8 10^3/ul (0.3-0.9); MONOCYTES % 11.6 % (0.0-11.0); NEUTROPHIL # 4.6 10^3/ul (1.6-7.5); PLATELET COUNT 351 10^3/UL (140-415); RED BLOOD COUNT 4.11 10^6/ul (4.20-5.40)
[2019-01-11 06:50] LABS: ALANINE AMINOTRANSFERASE 19 IU/L (13-69); ALBUMIN/GLOBULIN RATIO 1.29; ALKALINE PHOSPHATASE 127 IU/L (42-121); ANION GAP 18 (5-13); ASPARTATE AMINO TRANSFERASE 21 IU/L (15-46); BILIRUBIN,INDIRECT 0.1 mg/dl (0-1.1); BILIRUBIN,TOTAL 0.1 mg/dl (0.2-1.3); BLOOD UREA NITROGEN 93 mg/dl (7-20); CARBON DIOXIDE 26 mmol/L (21-31); CHLORIDE 81 mmol/L (97-110); CREATININE 6.58 mg/dl (0.44-1.00); GLUCOSE 101 mg/dl (70-220); POTASSIUM 5.4 mmol/L (3.5-5.1); SODIUM 125 mmol/L (135-144); TOTAL PROTEIN 7.1 g/dl (6.1-8.1)
[2019-01-11] MEDS: INSULIN ASPART [NOVOLOG] 3 ML PEN SC ×4 (07:55→20:22)
[2019-01-11] MEDS: AMLODIPINE 10 MG TAB GTB (08:58)
[2019-01-11] MEDS: LOSARTAN 25 MG TAB GTB (08:58)
[2019-01-11] MEDS: CALCIUM CARBONATE 500 MG CHEW TAB GTB ×3 (08:58→20:22)
[2019-01-11] MEDS: FERROUS SULFATE 60 MG/ML 5ML CUP GTB (08:58)
[2019-01-11] MEDS: METOCLOPRAMIDE 5 MG TAB GTB ×2 (08:59→20:22)
[2019-01-11] MEDS: MULTIVIT/CA CARB/B CMPLX/FA TAB GTB (08:59)
[2019-01-11] MEDS ORDERED: NON-FORMULARY/PATIENT OWN MED (Cran/Vitc/Mannose/Inulin/Brom (Uti-Stat Liquid) 30 ML) GTB (09:00)
[2019-01-11] MEDS ORDERED: NON-FORMULARY/PATIENT OWN MED (Amino Acids/Protein Hydrolys (Pro-Stat Liquid) 30 ML) GTB (09:00)
[2019-01-11] MEDS ORDERED: CALCIUM CARBONATE 500 MG PO (09:00)
[2019-01-11] MEDS ORDERED: NON-FORMULARY/PATIENT OWN MED (Cranberry Extract (Cranberry) 425 MG) GTB (09:00)
[2019-01-11] MEDS ORDERED: LANSOPRAZOLE 30 MG GTB (09:00)
[2019-01-11] MEDS ORDERED: FERROUS SULFATE 220 MG/5 ML ML GTB (09:00)
[2019-01-11] MEDS: ACETAMINOPHEN 325 MG TAB GTB (12:06)
[2019-01-11 12:52] LABS: HEPATITIS B SURFACE ANTIGEN NEGATIVE (NEGATIVE)
[2019-01-11] MEDS: ALBUMIN HUMAN 25% 100 ML IV (16:46)
[2019-01-11 19:53] LABS: SODIUM 137 mmol/L (135-144)
[2019-01-11] MEDS: DOCUSATE SODIUM 100 MG CAP PO (20:22)
[2019-01-11] MEDS: OCULAR LUBRICANT 3.5 GM OPH OINT BOTH EYES (20:23)
[2019-01-11] MEDS: LATANOPROST 0.005% 2.5 ML OPH LEFT EYE (20:23)
[2019-01-12] MEDS: LANSOPRAZOLE (SOLTAB) 30 MG TAB GTB (04:33)
[2019-01-12] MEDS: traMADol 50 MG TAB GTB (04:33)
[2019-01-12 07:54] LABS: CHOLESTEROL 158 mg/dl (100-200)
[2019-01-12 07:54] LABS: CHOL/HDL RATIO 3.7 RATIO; HDL CHOLESTEROL 42 mg/dl (33-92); LDL CHOLESTEROL,CALCULATED 95 mg/dl; TRIGLYCERIDES 107 mg/dl (0-149)
[2019-01-12] MEDS ORDERED: GLUCOSE GEL 15 GRAM TUBE PO ×2 (08:30)
[2019-01-12] MEDS ORDERED: GLUCOSE GEL 15 GRAM TUBE BUCCAL (08:30)
[2019-01-12] MEDS ORDERED: DEXTROSE 50% 50 ML SYRINGE IV ×2 (08:30)
[2019-01-12] MEDS ORDERED: GLUCAGON 1 MG INJ IM (08:30)
[2019-01-12] MEDS: MULTIVIT/CA CARB/B CMPLX/FA TAB GTB ×2 (09:39→10:16)
[2019-01-12] MEDS: METOCLOPRAMIDE 5 MG TAB GTB ×3 (09:42→20:53)
[2019-01-12] MEDS: FERROUS SULFATE 60 MG/ML 5ML CUP GTB ×2 (09:42→10:16)
[2019-01-12] MEDS: LOSARTAN 25 MG TAB GTB ×2 (09:42→10:17)
[2019-01-12] MEDS: CALCIUM CARBONATE 500 MG CHEW TAB GTB ×4 (09:42→20:53)
[2019-01-12] MEDS: ASPIRIN (EC) 81 MG TAB PO ×2 (09:42→10:18)
[2019-01-12] MEDS: AMLODIPINE 10 MG TAB GTB ×2 (09:43→10:18)
[2019-01-12] MEDS: INSULIN ASPART [NOVOLOG] 3 ML PEN SC ×4 (09:58→20:57)
[2019-01-12 10:10] LABS: ANION GAP 11 (5-13); BLOOD UREA NITROGEN 39 mg/dl (7-20); CALCIUM 9.7 mg/dl (8.4-10.2); CARBON DIOXIDE 30 mmol/L (21-31); CHLORIDE 96 mmol/L (97-110); CREATININE 3.64 mg/dl (0.44-1.00); GLUCOSE 164 mg/dl (70-220); POTASSIUM 4.3 mmol/L (3.5-5.1); SODIUM 137 mmol/L (135-144)
[2019-01-12] MEDS: OCULAR LUBRICANT 3.5 GM OPH OINT BOTH EYES (20:53)
[2019-01-12] MEDS: LATANOPROST 0.005% 2.5 ML OPH LEFT EYE (20:53)
[2019-01-12] MEDS: DOCUSATE SODIUM 10 MG/ML (10ML CUP) GTB (21:01)
[2019-01-13] MEDS ORDERED: ACCU-CHEK XX (02:00)
[2019-01-13] MEDS: ACCU-CHEK XX (02:00)
[2019-01-13] MEDS: LANSOPRAZOLE (SOLTAB) 30 MG TAB GTB (05:31)
[2019-01-13 07:20] LABS: ANION GAP 12 (5-13); BLOOD UREA NITROGEN 62 mg/dl (7-20); CALCIUM 8.8 mg/dl (8.4-10.2); CARBON DIOXIDE 29 mmol/L (21-31); CHLORIDE 94 mmol/L (97-110); GLUCOSE 169 mg/dl (70-220); SODIUM 135 mmol/L (135-144)
[2019-01-13] MEDS: INSULIN ASPART [NOVOLOG] 3 ML PEN SC ×4 (08:16→21:11)
[2019-01-13] MEDS: MULTIVIT/CA CARB/B CMPLX/FA TAB GTB (08:46)
[2019-01-13] MEDS: CALCIUM CARBONATE 500 MG CHEW TAB GTB ×3 (08:46→20:50)
[2019-01-13] MEDS: ASPIRIN (EC) 81 MG TAB PO (08:47)
[2019-01-13] MEDS: METOCLOPRAMIDE 5 MG TAB GTB ×2 (08:47→20:50)
[2019-01-13] MEDS: AMLODIPINE 10 MG TAB GTB (08:47)
[2019-01-13] MEDS: LOSARTAN 25 MG TAB GTB (08:47)
[2019-01-13] MEDS: FERROUS SULFATE 60 MG/ML 5ML CUP GTB (08:47)
[2019-01-13] MEDS: traMADol 50 MG TAB GTB (14:02)
[2019-01-13] MEDS: DOCUSATE SODIUM 10 MG/ML (10ML CUP) GTB (20:48)
[2019-01-13] MEDS: BISACODYL 10 MG SUPP PR (20:50)
[2019-01-13] MEDS: OCULAR LUBRICANT 3.5 GM OPH OINT BOTH EYES (20:50)
[2019-01-13] MEDS: GABAPENTIN 300 MG CAP PO (20:50)
[2019-01-13] MEDS: LATANOPROST 0.005% 2.5 ML OPH LEFT EYE (20:50)
[2019-01-14] MEDS: ACCU-CHEK XX (02:00)
[2019-01-14] MEDS: LANSOPRAZOLE (SOLTAB) 30 MG TAB GTB (06:28)
[2019-01-14] MEDS: CALCIUM CARBONATE 500 MG CHEW TAB GTB ×2 (08:09→12:29)
[2019-01-14] MEDS: FERROUS SULFATE 60 MG/ML 5ML CUP GTB (08:09)
[2019-01-14] MEDS: MULTIVIT/CA CARB/B CMPLX/FA TAB GTB (08:09)
[2019-01-14] MEDS: METOCLOPRAMIDE 5 MG TAB GTB (08:10)
[2019-01-14] MEDS: ASPIRIN (EC) 81 MG TAB PO (08:10)
[2019-01-14] MEDS: AMLODIPINE 10 MG TAB GTB (08:10)
[2019-01-14] MEDS: LOSARTAN 25 MG TAB GTB (08:10)
[2019-01-14] MEDS: INSULIN ASPART [NOVOLOG] 3 ML PEN SC ×3 (08:23→18:18)
[2019-01-14] MEDS: ACETAMINOPHEN 325 MG TAB GTB (11:38)
[2019-01-14] MEDS: traMADol 50 MG TAB GTB (14:49)
== END 2019-01-14 19:22 | DRG 551 ==
LOC: TEL 00:08
PROC: 5A1D70Z Performance of Urinary Filtration, Intermittent, Less than 6 Hours Per Day (ICD-10-PCS; 2019-01-11)
PROC: 0D20XUZ Change Feeding Device in Upper Intestinal Tract, External Approach (ICD-10-PCS; principal; 2019-01-13)
PROC: 5A1D70Z Performance of Urinary Filtration, Intermittent, Less than 6 Hours Per Day (ICD-10-PCS; 2019-01-13)
DX: M47.22 Other spondylosis with radiculopathy, cervical region (principal); N18.6 End stage renal disease; E87.1 Hypo-osmolality and hyponatremia; I12.0 Hypertensive chronic kidney disease with stage 5 chronic kidney disease or end stage renal disease; I69.351 Hemiplegia and hemiparesis following cerebral infarction affecting right dominant side; K94.23 Gastrostomy malfunction; M48.02 Spinal stenosis, cervical region; E11.22 Type 2 diabetes mellitus with diabetic chronic kidney disease; E87.5 Hyperkalemia; K31.84 Gastroparesis; E11.43 Type 2 diabetes mellitus with diabetic autonomic (poly)neuropathy; E78.5 Hyperlipidemia, unspecified; I25.10 Atherosclerotic heart disease of native coronary artery without angina pectoris; K59.00 Constipation, unspecified; Y83.3 Surgical operation with formation of external stoma as the cause of abnormal reaction of the patient, or of later complication, without mention of misadventure at the time of the procedure; Y92.230 Patient room in hospital as the place of occurrence of the external cause; Z79.4 Long term (current) use of insulin; Z79.82 Long term (current) use of aspirin; Z99.2 Dependence on renal dialysis
CPT/HCPCS: 70551; 71045; 72141; 80048; 80053; 80061; 82962; 84295; 85025; 87340; 90935